=== PATIENT | female | born 1985 | race Caucasian/White ===

== ENCOUNTER 2016-10-23 00:53 | Emergency (ER) | payer OTHER ==
[~2016-10-23] VITALS: Ht 167.6 cm; Wt 67.4 kg
[~2016-10-23 00:53] MED LIST: CLC100X PO; OMEG10007 PO; PRENTAB26 PO; SUBUTEX SL
[2016-10-23 00:56] VITALS: TEMP 37; Ht 167.6 cm; Wt 67.4 kg
[2016-10-23] MEDS ORDERED: MoRPHine SULFATE 10 MG/ML CARP/VIAL IM STA (01:14)
[2016-10-23] MEDS ORDERED: OXYCODONE IR HOME PACK PO ONE (01:15)
[2016-10-23] MEDS ORDERED: BCPILLS PO (01:36)
[2016-10-23] MEDS ORDERED: BUPR8SUB19 PO (01:36)
[2016-10-23 01:53] VITALS: BP 128/67; PULSE 74; O2SAT 99
--- NOTE | 2016-10-23 04:26 | EMERGENCY ROOM VISIT NOTE ---
History First contact with patient: 01:13 Chief Complaint: NECK PAIN Stated Complaint: NECK/SHOULDER PAIN SHOOTING DOWN ARM,HEADACHE History of Present Illness The patient is a 30 year old female who presents to the Emergency Room with complaints of neck pain that radiates down her left arm described as aching, ranging in severity 6 out of 10. Movement makes it worse and nothing makes it better. She's had this issue before.. She sees Dr. Denson but not recently. Patient tried Motrin and Tylenol with no relief of symptoms. Patient denies trauma, fall, numbness, tingling, chest pain, dyspnea, fever, chills, neck stiffness, headache, leg numbness or dizziness. She is tolerated by mouth fluids and food. Patient denies difficulty grasping objects or moving her arms. Review of Systems See HPI for pertinent positives & negatives. A total of 10 systems reviewed and were otherwise negative. Past Medical/Surgical History Medical Problems: (1) Anxiety (2) Migraine (3) Post-dates (4) complicated by subutex maintenance, antepartum (5) Tonsillectomy Social History Smoking Status: Current Every Day Smoker Alcohol Use: occasionally Drug Use: none Marital Status: single Housing Status: lives with family Occupation Status: employed Current/Historical Medications Scheduled Control Pills ( Control Pills), 1 TAB PO DAILY Buprenorphine Hcl (Subutex), 8 MG PO DAILY Allergies Coded Allergies: Amoxicillin (Verified Allergy, Intermediate, RASH; pt tolerated Penicillin G before, 10/23/16) Penicillins (Verified Allergy, Mild, RASH, 10/23/16) Amitriptyline (Verified Allergy, Unknown, RASH, 10/23/16) Gabapentin (Verified Allergy, Unknown, RASH, 10/23/16) Nortriptyline (Verified Allergy, Unknown, RASH, 10/23/16) Tramadol (Verified Allergy, Unknown, HIVES, 10/23/16) Uncoded Allergies: AVERT (Allergy, Unknown, HIVES, 09/14/15) ??PER PT - THIS IS A MIGRAINE MEDICATION Physical Exam Vital Signs Date Time Temp Pulse Resp B/P Pulse Ox O2 Delivery O2 Flow Rate FiO2 10/23/16 01:53 74 18 128/67 99 10/23/16 00:56 37.0 75 18 120/66 98 Room Air Pain Rating (0-10): 4.0 Physical Exam VITALS: Vitals are noted on the nurse's note and reviewed by myself. Vital signs stable. GENERAL: Pleasant female, in no acute distress, nondiaphoretic, well-developed well-nourished. SKIN: The skin was without rashes, erythema, edema, or bruising. There is no tenting of the skin. Capillary reflex less than 2 seconds. HEAD: Normocephalic atraumatic. EARS: External auditory canals clear, tympanic membranes pearly sloan without erythema or effusion bilaterally. EYES: Pupils equal round and reactive to light and accommodation. Conjunctivae without injection, sclerae without icterus. Extraocular movements intact. NOSE: Patent, turbinates without inflammation or discharge. MOUTH: Mucous membranes moist. Pharynx without erythema or exudate. Uvula midline. Airway patent. Tongue does not deviate. NECK: Supple without nuchal rigidity. No lymphadenopathy. No thyromegaly. Cervical spine is nontender. No JVD. HEART: Regular rate and rhythm without murmurs gallops or rubs. LUNGS: Clear to auscultation bilaterally without wheezes, rales or rhonchi. No dullness to percussion. No retractions or accessory muscle use. ABDOMEN: Positive bowel sounds x 4. Normal tympanic percussion. Soft, nontender, without masses or organomegaly. Albert sign negative. No guarding or rebound tenderness. MUSCULOSKELETAL: No muscle atrophy, erythema, or edema noted. No thoracic or lumbar tenderness on exam. 5 out of 5 strength throughout. NEURO: Patient was alert and oriented to person place and time. Normal sensation to light and sharp touch. No focal neurological deficits. Medical Decision & Procedures Medications Administered Medications (Trade) Dose Ordered Sig/Rikki Route Start Time Stop Time Status Last Admin Dose Admin Oxycodone HCl (Roxicodone Immediate Rel 5MG Home Pack) 1 homepack UD ONCE PO 10/23/16 01:15 10/23/16 01:26 DC 10/23/16 01:50 1 HOMEPACK Morphine Sulfate (MoRPHine SULFATE INJ) 8 mg NOW STAT IM 10/23/16 01:14 10/23/16 01:26 DC 10/23/16 01:34 8 MG ED Course Prior records/ancillary studies reviewed. Triage Nursing notes reviewed. The patient's history was concerning for neck pain. Differential diagnosis: Etiologies such as musculoskeletal, disc herniation, fracture, metastatic disease, cord compression, discitis, infection, acute exacerbation of chronic neck pain, thoracic outlet syndrome as well as others were entertained. Physical findings: As above. No focal neurologic findings noted. ER treatment provided: Morphine, home pack OxyIR On reassessment the patient felt better. Diagnostics interpreted by me: Deferred This appears to be consistent with cervical radiculopathy. Patient was advised to follow back up with her orthopedic spine doctor. She is advised to do yoga and/or Pilates. She is advised to obtain all controlled substances from her family care doctor or pain management. Patient was neurovascularly and neurologically intact. No trauma. No deficits on exam. Patient was requesting for a short supply pain medicines as she does not have anything currently at home. I felt this is reasonable. She is not been in the ER quite sometime. She is advised to return to the ER immediately for severe pain, numbness, tingling, worsening signs or symptoms or as needed.. The patient's physical examination and detailed history did not reveal any red flags for neck pain such as those listed in the differential diagnosis. Therefore advanced diagnostics and consultations were felt to be unwarranted. By the evaluation outlined above emergent etiologies such as fracture, metastatic disease, infection, cord compression, as well as others were deemed relatively unlikely. The pt informed about the findings as listed above. All questions were answered and pleased with the treatment. Return instructions were outlined and the patient was discharged in stable condition. Outpatient prescription management: Oxy IR 5mg 1-2 po Q4 hrs prn Referral: The patient was referred back to spine and/or primary care physician for follow- up in 2 to 3 days for a recheck of the current condition. Medical Decision As above [place] Drug Monitoring Program Search Results: patient reviewed within database, see additional documentation (patient receives chronic narcotics) Impression Primary Impression: Cervical radiculopathy Departure Information Dispostion Home / Self-Care Condition GOOD Referrals Uri Perez M.D. Forms WORK / SCHOOL INSTRUCTIONS, HOME CARE DOCUMENTATION FORM, IMPORTANT VISIT INFORMATION Patient Instructions [facility], ED Cervical Radiculopathy Additional Instructions DO NOT drive, drink alcohol, operate machinery, or perform dangerous activities today. You were given medications in the ER that can affect your ability to safely function or operate a vehicle. Oxycodone (OxyIR) 5mg: Take 1-2 pills every four hours for breakthrough pain. Avoid alcohol, operating machinery or dangerous equipment, working on ladders or roofs, DRIVING, or situations where being under the influence may be dangerous. It is recommended to use an [id number] stool softener such as Colace, 100mg twice daily while taking this medication to avoid constipation. Ibuprofen(Motrin, Advil) may be used for fever or pain. Use 600mg every six hours as needed. Take with food. Avoid using more than 2400mg in a 24 hour period. Do not use 2400mg per day for more than three consecutive days without physician direction. Prolonged inappropriate use can lead to stomach upset or ulcers. This medication can be taken if you need to drive, work, or perform activities which may be dangerous when taking narcotic pain medication. (AND/OR) Acetaminophen(Tylenol) may be used for fever or pain. Use 1000mg every six hours as needed. Avoid using more than 3000mg in a 24 hour period. This medication can be taken if you need to drive, work, or perform activities which may be dangerous when taking narcotic pain medication. Rest and avoid heavy lifting until your symptoms resolve and then gradually return to full activity. A good rule of thumb is if it hurts your neck to perform a certain activity, then it should be avoided until you are healthy again. A heating pad, warm compresses, or a hot shower may help with tight muscles and can be done several times a day as needed. Continue current medications. Return to the ER immediately for any numbness, tingling, severe pain, loss of control of your bowels or bladder, inability to walk, or as needed. Follow up with your primary care physician/orthopedics spine within 3-5 days for a recheck of your current condition.
== END 2016-10-23 01:57 | disposition home or self-care (01) ==
LOC: C.EDB 00:54 → C.EDA 01:57
DX: M54.12 Radiculopathy, cervical region (principal); F41.9 Anxiety disorder, unspecified; Z79.3 Long term (current) use of hormonal contraceptives; Z79.899 Other long term (current) drug therapy; Z88.0 Allergy status to penicillin; Z88.1 Allergy status to other antibiotic agents; Z88.6 Allergy status to analgesic agent; Z88.8 Allergy status to other drugs, medicaments and biological substances; F17.200 Nicotine dependence, unspecified, uncomplicated

== ENCOUNTER 2024-09-03 08:04 | Observation (INO) ==
--- OUTSIDE RECORDS SUMMARY | 2024-09-03 08:09 | External Medical Summary | Summary of Care ---
Author Name Unknown Organization [facility] Address [address] [place] [address] Phone [phone] Care Team Providers Care Superannuation Clerk Name Role Phone Fawn Whitehead MD Primary Care Provide r Reason for Visit * Auth/Cert Specialty Diagnoses / Procedures Referred By Juan F de dios Referred To Contact Diagnoses Nausea Heartburn Dysphagia, unspecified type Nausea [R11.0] Heartburn [R12] Dysphagia, unspecified type [R13.10] Procedures EGD, FLEXIBLE, DIAGNOSTIC ESOPHAGOGASTRODUODENOSCOPY (EGD), FLEXIBLE, TRANSORAL, DIAGNOSTIC Referral ID Status Reason Start Date Expiration Date Visits Re quested Visits Authorized [id number] Encounter Details Date Type Department Care Team (Latest Contact Info) Description 08/21/2024 8:04 AM EST - 08/21/2024 10:44 AM [facility] Hospital Encounter ENDO [facility], Endoscopy Room [facility] [address] [place] [phone] Nikunj Loo MD [address] [place] [phone] Upper GI Endoscopy Discharge Disposition: Home - Self Care Allergies Active Allergy Reactions Criticality Noted Date Comments Amitriptyline Rash High 09/28/2009 Rash Amoxicillin Rash High 08/21/2002 rash Gabapentin Hives High 06/02/2009 Hives Nortriptyline Hcl Rash High 09/28/2009 Rash Tramadol Rash High 08/06/2014 hives documented as of this encounter (statuses as of 08/21/2024) Medications Buprenorphine HCl 8 MG Sublingual Tablet Sublingual Take 1 Tablet by mouth in the morning. Active Probiotic Acidophilus BioBeads Oral Capsule Take by mouth 1 Capsule three times a day with meals . Active Ibuprofen 600 MG Oral Tablet (Motrin) Take by mouth 1 Tablet every 6 hours as needed (pain). With food. 30 Tablet 2 Active Multi Vitamin Oral Tablet Take by mouth. Act jose maria Ajovy 225 MG/1.5ML Subcutaneous Solution Auto-injector (Fremanezumab-vf rm) Inject 1 pen under the skin Every Month. 1.5 mL 3 4 Active Additional Information Patient not taking.Reported on 08/21/2024 Riboflavin 400 MG Oral Tablet Take 1 Tablet by mouth in the morning. 30 Tablet 2 4 Active Additional Information Patient not taking.Reported on 08/21/2024 Magnesium Oxide 400 MG Oral Capsule Take 1 Capsule by mouth in the morning. 30 Capsule 2 4 Active Aimovig 140 MG/ML Subcutaneous Solution Auto-injector (Erenumab-aooe) Inject 140 mg under the skin Every Month. 1 mL 3 08/14/2024 9:40 AM EST 4 Active buPROPion HCl ER (XL) 150 MG Oral Tablet Extended Release 24 Hour (Wellbutrin XL)Indications:W eight gain,Generalized anxiety disorder Take 1 Tablet by mouth in the morning. 90 Tablet 1 4 Active Additional Information Patient not taking.Reported on 08/15/2024 Baclofen 20 MG Oral TabletIndication s:Neck pain Take 1 Tablet by mouth in the morning and 1 Tablet before bedtime. As needed for muscle pain. 30 Tablet 4 Active Lidocaine 5 % External CreamIndications :Ingrown toenail Apply pea size to the affected area daily as needed for pain 30 g 4 Active documented as of this encounter (statuses as of 08/21/2024) Active Problems Patient Care Coordination No te Formatting of this note is d ifferent from the original. Problem Action Taken Date entered Entered by Date resolved Problem Noted Date Diagnosed Date Gastro-esophageal reflux disease without esophag itis 03/27/2023 Current moderate episode of major depressive disorder without prior episode 03/27/2023 Nonrheumatic mitral valve regurgitation 09/22/19 Overview (09/22/2022): 2022 History of opioid abuse 11/11/2021 Overview (11/11/2021): sober since 2014 Depression 08/06/2014 Migraine without aura 08/06/2014 Small L occipital venous angioma 08/13/2009 Tobacco use disorder Generalized anxiety disorder documented as of this encounter (statuses as of 08/21/2024) Resolved Problems Problem Noted Date Diagnosed Date Resolved Date Equinus contracture of left ankle 03/27/2023 10/04/2023 GBS (group B Streptococcus c arrier), +RV culture, currently 08/19/2015 09/24/2015 Overview (08/25/2015): Pt allergic to amoxicillin (rash); vanco and penicillin susceptible Supervision of high-risk 05/19/2015 09/24/2015 Overview (09/13/2015): subutex use in - pt desires this info not be shared with FOB or any family members Transfer of care at [id number] records obtained 01/14/15: antibody screen negative, O-, Hgb/Hct: 12.2/36.5, RPR nonreactive, HbsAg nonreactive, HIV negative, C&G negative, rubella immune 03/30/15:quad screen negative 02/09/15: negative 04/19/15: normal anatomy sono Desires PP BTL Problem Action Taken Date entered Entered by Date resolved Pt here today due to pain issues Reviewed comfort measures with pt 08/16/2015 Amy Alexander RN 08/16/15 Problem Action Taken Date entered Entered by Date resolved of significant other Emotional support offered due to unexpected loss of significant other. Patient notes her mother plans on being her labor sales coach 08/25/2015 Shanice Sanchez RN 08/25/15 Problem Action Taken Date entered Entered by Date resolved Signs of labor Rviewed signs of labor Aware how to reach community education coordinator provider 08/31/2015 Shanice Sanchez RN 08/31/15 Problem Action Taken Date entered Entered by Date resolved Current needs or questions Patient denies having any current needs or questions 09/06/2015 Shanice Sanchez RN 09/06/15 Patient declines flu vaccine. 06/30/2015 Ashlee Awad RN Patient declines Tdap vaccine 07/14/15 Shanice Sanchez RN Problem Action Taken Date entered Entered by Date resolved Current needs or questions Patient denies having any current needs or questions 09/13/2015 Amy Alexander RN 09/13/15 Rh negative status during 05/19/2015 09/24/2015 Overview (06/15/2015): Rhogam candidate Rhogam given 06/15/2015 Bronwyn Harmon RN Tobacco smoking complicating 05/19/2015 09/24/2015 Overview (05/19/2015): Smoking 1ppd @ [facility] 24w1d Adjustment disorder with depressed mood 08/06/2014 08/06/2014 Adjustment disorder with depressed mood 10/18/2007 08/06/2014 History of tobacco use 12/01 Papanicolaou smear of cervix with atypical squamous cells of undetermined significance (ASC-US) 08/06/2014 Other specified anemias 12/2013 Anxiety state 08/08/2011 Reflux esophagitis 4 Migraine 08/06/2014 Vaginitis 08/06/2014 documented as of this encounter (statuses as of 08/21/2024) Immunizations Name Administration Dates Next Due HPV Vaccine, 4-Valent 08/16/2009,05/17/2009,04/2009 PPD 10/04/2023, 2,03/22/2011,03/07,11/08/2006 Pneumococcal Polysaccharide PPV23 (Pneumovax) 08/08/2011(Deferred: Patient Refused) Seasonal Influenza Vac., MDV , IM, 0.5 mL (Fluzone) 08/08/2011(Deferred: Patient Refused) TDAP (age 10 and older)(Boostrix) 03/20/2018 TDAP, Age 7 and older, IM (Adacel) 09/03/2005 documented as of this encounter Social History Tobacco Use Types Packs/Day Years Used Date Smoking Tobacco: Former Cigarettes 1 15 Smokeless Tobacco: Never Comments:17 Alcohol Use Standard Drinks/Week Comments Yes 0 (1 standard drink = 0.6 oz pure alcohol) occassional- less than 1 x per week PHQ-2 Answer Date Recorded PHQ-2 Score 0 08/09/2020 Hunger Vital Sign Answer Date Recorded Within the past 12 months, y ou worried that your food would run out before you got the money to buy more. Never true 07/09/20 23 Within the past 12 months, t he food you bought just didn't last and you didn't have money to get more. Never true 07/09/2023 Childcare Answer Date Recorded Do you feel overwhelmed with taking care of a child, family member or friend? No 07/09/2023 Does your family need help f inding childcare? (Household - for ages 0-17 years) Not on file 07/09/2023 Clothing Answer Date Recorded Have you been unable to get clothing when it was really needed? Yes 07/09/2023 Is your family able to get c lothes or diapers when needed? (Household - for ages 0-17 years) Not on file 07/09/2023 Personal Safety Answer Date Recorded Do you feel unsafe or have concerns for your saf ety? No 07/09/2023 Do you have concerns for you r family's safety? (Household - for ages 0-17 years) Not on file 07/09/2023 Utilities Answer Date Recorded Do you have trouble paying y our heating, water, or electric bill? No 07/09/2023 Is your family able to pay t he heat, water, or electric bill? (Household - for ages 0-17 years) Not on file 07/09/2023 Does your family have access to good internet? (Household - for ages 0-17 years) Not on file 07/09/2023 Employment Status Answer Date Recorded Are you unemployed or without regular income? No 07/09/2023 Does the household have a re gular source of income? (Household - for ages 0-17 years) Not on file 07/09/2023 Social Connections Answer Date Recorded How often do you feel lonely or isolated from those around you? Sometimes 07/09/2023 Financial Resource Strain Answer Date R ecorded Do you have any trouble payi ng for your medications, or do you think you might in the future? No 07/09/2023 Does your family have troubl e paying for medicine? (Household - for ages 0-17 years) Not on file 07/09/2023 Transportation Needs Answer Date Record ed READ ONLY Do you have troubl e getting a ride to medical visits or work? Never True 07/09/2023 Does your family have a hard time getting a ride to doctors visits? (Household - for ages 0-17 years) Not on file 07/09/2023 Has lack of transportation k ept you from medical appointments, meetings, work, or from getting things needed for daily living? Check all that apply. (Adult - for ages 18 years and over) Not on file 07/09/2023 Do you (or your family) have trouble finding or paying for a ride (transportation)? (Household - for ages 0-17 years) Not on file 07/09/2023 Housing Stability Answer Date Recorded Do you currently live in a s helter or have no steady place to sleep at night? No 07/09/2023 READ ONLY Do you think you a re at risk of becoming homeless? No 07/09/2023 Does your family worry about paying for your home or becoming homeless? (Household - for ages 0-17 years) Not on file 1 09/08/2022 Are you homeless or worried that you might be in the future? (Adult - for ages 18 years and over) Not on file Are you (or your family) schuyler eless or worried that you might be in the future? (Household - for ages 0-17 years) Not on file Food Insecurity Answer Date Recorded Do you need food for this week? No 07/09/2023 Are you able to get enough f ood for your family? (Household - for ages 0-17 years) Not on file 07/09/2023 Does your family need food t his week? (Household - for ages 0-17 years) Not on file 07/09/2023 Do you always have enough fo od for your family? 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 Not on file Not on file Not on file documented as of this encounter Last Filed Vital Signs Vital Sign Reading Time Taken Comments Blood Pressure 115/83 08/21/2024 10:25 AM EST Pulse 74 08/21/2024 10:25 AM EST Temperature 36.1 C (97 F) 08/21/2024 10:25 AM EST Respiratory Rate 16 08/21/2024 10:25 AM EST Oxygen Saturation 100% 08/21/2024 10:14 AM EST Inhaled Oxygen Concentration - - Weight 91.6 kg (202 lb) 08/21/2024 8:39 AM EST Height 165.1 cm (5' 5") 08/21/2024 8:39 AM EST Body Mass Index 33.61 08/21/2024 8:39 AM EST documented in this encounter H&P Notes * Nikunj Loo MD - 08/21/2024 9:33 AM EST Endoscopy Pre-Procedure Assessment Name: Clarissa Quintero Date: 08/21/2024 Time: 9:33 AM Procedure(s): Upper GI Endoscopy; with Indication(s) of dysphagia or odynophagia Endoscopy Pre-Procedure Assessment: Prior to the procedure, the patient is identified. The patient's history, medications and allergieshave been reviewed. The patient is competent. The risks and benefits of the proposed procedure and the planned sedation have been discussed with the patient. All questions have been answered and informed consent for the procedure has been obtained. Prior to Admission medications Medication Sig Last Dose Discont. Lidocaine 5 % External Cream Apply pea size to the affected area daily as needed for pain Past Week Baclofen 20 MG Oral Tablet Take 1 Tablet by mouth in the morning and 1 Tablet before bedtime. As needed for muscle pain. Past Week Aimovig 140 MG/ML Subcutaneous Solution Auto-injector (Erenumab-aooe) Inject 140 mg under the skin Every Month. 08/18/2024 Magnesium Oxide 400 MG Oral Capsule Take 1 Capsule by mouth in the morning. Past Week Multi Vitamin Oral Tablet Take by mouth. 08/20/2024 Ibuprofen 600 MG Oral Tablet (Motrin) Take by mouth 1 Tablet every 6 hours as needed (pain). With food. Past Week Probiotic Acidophilus BioBeads Oral Capsule Take by mouth 1 Capsule three times a day with meals . 08/20/2024 Buprenorphine HCl 8 MG Sublingual Tablet Sublingual Take 1 Tablet by mouth in the morning. 08/21/2024 at 7:15 AM Fluconazole 150 MG Oral Tablet (Diflucan) Take 1 Tablet by mouth once for 1 dose. Fluconazole 150 MG Oral Tablet (Diflucan) Take 1 Tablet by mouth once for 1 dose. Doxycycline Hyclate 100 MG Oral Capsule Take 1 Capsule by mouth in the morning and 1 Capsule beforebedtime. Do all this for 7 days. Take for 7 days. predniSONE 20 MG Oral Tablet (Deltasone) Take 2 Tablets by mouth in the morning for 5 days. buPROPion HCl ER (XL) 150 MG Oral Tablet Extended Release 24 Hour (Wellbutrin XL) Take 1 Tablet by mouth in the morning. Patient not taking: Reported on 08/15/2024 Not Taking Ajovy 225 MG/1.5ML Subcutaneous Solution Auto-injector (Fremanezumab-vfrm) Inject 1 pen under the skin Every Month. Patient not taking: Reported on 08/21/2024 Not Taking Riboflavin 400 MG Oral Tablet Take 1 Tablet by mouth in the morning. Patient not taking: Reported on 08/21/2024 Not Taking Review of patient's allergies indicates: Allergen Reactions Amitriptyline Rash Rash Amoxicillin Rash rash Neurontin [Gabapentin] Hives Hives Nortriptyline Hcl Rash Rash Tramadol Rash hives BP 121/57 | Pulse 78 | Temp 36.8 C (98.2 F) (Tympanic) | Resp 14 | Ht 1.651 m (5' 5") | Wt 91.6kg (202 lb) | SpO2 99% | BMI 33.61 kg/m | BSA 2.05 m Physical Exam: Mental Status Examination: alert and oriented. Airway Examination: normal oropharyngeal airway and neck mobility. Respiratory Examination: clear to auscultation. CV Examination: normal. ASA Grade: II - A patient with mild systemic disease. Abdomen: negative This patient has undergone a preprocedural evaluation. A determination has been made to proceed with the planned procedure under [facility] procedural guidelines and the [facility] Non-Emergent, Elective Medical Services and Treatment Recommendations (published on 12-09-19). The community and hospital prevalence of COVID-19 has been discussed as well as this patient's specific risks associated with SARS-CoV-19 infection. Based upon the clinical acuity and patient-specific care considerations, this procedure is deemed a Tier II - Intermediate acuity treatment or service with either progression or the threat of progressive disease related to the delay in treatment. Not providing the service has the potential for increasing morbidity or mortality. After reviewing the risks and benefits, the patient is deemed in satisfactory condition to undergo the procedure. The anesthesia plan is to use general anesthesia. Nikunj Loo MD 08/21/2024 documented in this encounter Procedure Notes * Fawn Whitehead MD - 08/21/2024 9:47 AM ESTAssociated Order(s): UPPER GI ENDOSCOPY [facility] Patient Name: Clarissa Quintero Procedure Date: 08/21/2024 9:47 AM Date of : 1985 Admit Type: Outpatient Note Status: Finalized Date of : 1985 Admit Type: Outpatient Age: 38 Room: [facility] 3 Gender: Female Note Status: Finalized Procedure: Upper GI endoscopy Indications: Dysphagia Providers: Nikunj Loo MD (Doctor) Referring MD: aFwn Whitehead (Referring MD) Medicines: See the Anesthesia note for documentation of the administered medications Complications: No immediate complications. Procedure: Pre-Anesthesia Assessment: - ASA Grade Assessment: III - A patient with severe systemic disease. - Prior to the procedure, a History and Physical was performed, and patient medication allergies have been reviewed. The patient's tolerance of previous anesthesia has been reviewed. - Respiratory Examination: clear to auscultation. - CV Examination: normal. - The risks and benefits of the procedure and the sedation options and risks were discussed with the patient. All questions were answered and informed consent was obtained. - Patient identification and proposed procedure were verified prior to the procedure by the physician, the nurse and the motorcycle maker. The procedure was verified in the pre-procedure area in the procedure room. - The medication list for this patient has been reviewed prior to the procedure and has been determined that the patient may proceed with the planned study. Any medication changes made as a result of the findings of this procedure have been discussed with the patient and/or admitting representative at the time of discharge from the facility. After obtaining informed consent, the endoscope was passed under direct vision. All instruments were visually inspected immediately before and after removal from the patient to ensure they are fully intact. Throughout the procedure, the patient's blood pressure, pulse, and oxygen saturations were monitored continuously. The colonoscopy was performed without difficulty. The patient tolerated the procedure well. The [id number]-[id number] Endoscope ([id number]) was introduced through the mouth, and advanced to the second part of duodenum. Findings & Specimens: Faint furrows in proximal esophagus. The GE junction was at 40 cm. Hill 1. Biopsies taken from throughout the esophagus.The gastroesophageal flap valve was visualized endoscopically and classified as Hill Grade I (prominent fold, tight to endoscope). The entire examined stomach was normal. Biopsies were taken with a cold forceps for histology. The examined duodenum was normal. Biopsies were taken with a cold forceps for histology. A guidewire was placed and the scope was withdrawn. Dilation was performed at the gastroesophageal junction and no disruption with a Savary dilator with no resistance at 18 mm. Impression: - Gastroesophageal flap valve classified as Hill Grade I (prominent fold, tight to endoscope). - Normal stomach. Biopsied. - Normal examined duodenum. Biopsied. - Dilation performed at the gastroesophageal junction. It is possible that pt has opioid induced esophageal dysmotility. Recommendation: - Discharge patient to home. Follow up biopsy results. Nikunj Loo MD 08/21/2024 10:25:09 AM This report has been signed electronically. documented in this encounter Nursing Notes * Reema Torres RN - 08/21/2024 10:43 AM EST Patient is alert, pain free, passing flatus and tolerating po fluids prior to discharge. Patient has been visited by Dr. Loo. Patient has received and demonstrates understanding of discharge instructions. Patient ambulated to private auto accompanied by endo staff. * Reema Torres RN - 08/21/2024 10:25 AM EST Patient transferred to post endo s/p egd . Patient awake Respirations are even and unlabored on room air. NSR in the 80s on the monitor. Abdomen soft and non distended. Vital signs stable. IA * Bao Cristina RN - 08/21/2024 10:11 AM EST See anesthesia record for medication administered during procedure. Bao Cristina RN Specimen(s) and location(s) verified with physician post procedure 10:11 AM Bao Cristina RN Pt nicolas EGD w/ bx and dilation well. Abd soft post proc. To recovery lying on L side w/ HOB elevated. Pre cleaning of scope at the bedside started by respiratory therapy technician. * Katlyn Navarro RN - 08/21/2024 8:43 AM EST Pt arrived and prepped for GI procedure. Given opportunity to ask questions. No concerns or complaints at this time. Pt ready for procedure and call light in reach. The following pt discharge instructions reviewed with pt prior to prodedure: No driving today. No alcohol today. No signing of legal documents. Rest as much as possible today and can return to normal activities tomorrow. No operating any heavy equipment today. Diet as tolerated. Pt verbalized understanding. documented in this encounter Plan of Treatment Upcoming Encounters Date Type Department Care Team (Late st Contact Info) Description 09/10/2024 8:00 AM EST Office Visit [facility] [address] [place] [phone] [facility]az [facility] [place] [address] 09/10/2024 10:00 AM EST Nutrition Services [facility], [facility] [address] [facility] [place] [phone] Millie Mary RDN [address] [facility] [address] 11/20/2024 10:00 AM EDT Office Visit Neurology [facility] [address] [place] [address] Sarah Velásquez MD [address] [facility] [id number] Pending Results Name Type Priority Associated Diagnoses Date /Time SURGICAL PATHOLOGY Pathology Routine Nausea Heartburn Dysphagia, unspecified type 08/21/2024 10:12 AM EST Scheduled Orders Name Type Priority Associated Diagnoses Orde r Schedule URINE SCREEN, POINT OF CARE (ENTER/EDIT) Point of Care Testing STAT Perform Now for 1 Occurrences starting 08/21/2024 until 08/21/2024 SURGICAL PATHOLOGY Pathology Routine Nausea Heartburn Dysphagia, unspecified type Release Upon Ordering for 1 Occurrences starting 08/21/2024 Scheduled Procedures Name Priority Associated Diagnoses Date/Ti fl ESOPHAGOGASTRODUODENOSCOPY ( EGD), FLEXIBLE, TRANSORAL, DIAGNOSTIC Nausea Heartburn Dysphagia, unspecified type 08/21/2024 9:50 AM EST Health Maintenance Due Date Last Done Comments Depression Monitoring 08/09/2021 08/09/2020 COVID-19 Vaccine ( season) 2024 Influenza Vaccine (FLU shot) (#1) 2024 Pap Smear 08/18/2025 08/18/2022, 03/03, 11/29/2016, Additional history exists Diabetes Screening 07/04/2027 07/04/2024, 1 09/03/2023, 10/05/2023, Additional history exists Cervical Cancer Screening 08/18/2027 HPV/Co-Test 08/18/2027 08/18/2022 DTap/Tdap Vaccines (8 - Td or Tdap) 03/20/2028 03/20/2018, 09/03/2005, 05/03/1998, Additional history exists HPV (Gardasil) Vaccine Completed 9, 05/17/2009, 02/08/2009 MENINGOCOCCAL (MENACTRA/MENVEO) Aged Out No longer eligible based on patient's age to complete this topic Pneumococcal Vaccine: Pediatrics (0 to 5 Years) and At-Risk Patients (6 to 64 Years) Aged Out No longer eligible based on patient's age to complete this topic documented as of this encounter Medical Devices Not on filedocumented as of this encounter Procedures Procedure Name Priority Date/Time Associated Diagnosis Comments UPPER GI ENDOSCOPY 08/21/2024 9: 47 AM EST documented in this encounter Results * UPPER GI ENDOSCOPY (08/21/2024 9:47 AM EST) 08/21/2024 9:47 AM EST Narrative Procedure Note Fawn Whitehead MD - 08/21/2024 9:47 AM EST [facility] Patient Name: Clarissa Quintero Procedure Date: 08/21/2024 9:47 AM Date of : 1985 Admit Type: Outpatient Note Status:Finalized Date of : 1985 Admit Type: Outpatient Age: 38 Room: [facility] 3 Gender: Female Note Status: Finalized Procedure: Upper GI endoscopy Indications: Dysphagia Providers: Nikunj Loo MD (Doctor) Referring MD: Fawn Whitehead (Referring MD) Medicines: See the Anesthesia note for documentation of theadministered medications Complications: No immediate complications. Procedure: Pre-Anesthesia Assessment: - ASA Grade Assessment: III - A patient with severesystemic disease. - Prior to the procedure, a History and Physicalwas performed, and patient medication allergies have been reviewed. Thepatient's tolerance of previous anesthesia has been reviewed. - Respiratory Examination: clear to auscultation. - CV Examination: normal. - The risks and benefits of the procedure and thesedation options and risks were discussed with the patient. All questions wereanswered and informed consent was obtained. - Patient identification and proposed procedurewere verified prior to the procedure by the physician, the nurse and the motorcycle maker.The procedure was verified in the pre-procedure area in the procedure room. - The medication list for this patient has beenreviewed prior to the procedure and has been determined that the patient may proceedwith the planned study. Any medication changes made as a result of the findingsof this procedure have been discussed with the patient and/or admitting representative atthe time of discharge from the facility. After obtaining informed consent, the endoscope waspassed under direct vision. All instruments were visually inspected immediatelybefore and after removal from the patient to ensure they are fully intact. Throughout the procedure, the patient's bloodpressure, pulse, and oxygen saturations were monitored continuously. The colonoscopy wasperformed without difficulty. The patient tolerated the procedure well. The [id number] ([id number]) was introduced through the mouth, and advanced to thesecond part of duodenum. Findings & Specimens: Faint furrows in proximal esophagus. The GE junction was at 40 cm.Hill 1. Biopsies taken from throughout the esophagus.The gastroesophageal flap valve wasvisualized endoscopically and classified as Hill Grade I (prominent fold, tight to endoscope). The entire examined stomach was normal. Biopsies were taken with acold forceps for histology. The examined duodenum was normal. Biopsies were taken with a coldforceps for histology. A guidewire was placed and the scope was withdrawn. Dilation wasperformed at the gastroesophageal junction and no disruption with a Savary dilator with no resistanceat 18 mm. Impression: - Gastroesophageal flap valve classified as HillGrade I (prominent fold, tight to endoscope). - Normal stomach. Biopsied. - Normal examined duodenum. Biopsied. - Dilation performed at the gastroesophagealjunction. 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 Recommendation: - Discharge patient to home. Follow up biopsyresults. Nikunj Loo MD 08/21/2024 10:25:09 AM This report has been signed electronically. Fawn Whitehead MD GASTRO UPPER Final Result documented in this encounter Visit Diagnoses Diagnosis Nausea Nausea alone Heartburn Dysphagia, unspecified type documented in this encounter Administered Medications Inactive Administered Medications - up to 3 most recent administrations Medication Order MAR Action Action Date Dose Rate Site Acetaminophen (Tylenol) tab 650 mg 650 mg, Oral, PRN Pain, Mild, Starting on Aurea 08/21/24 at 1020, Until Aurea 08/21/24 at 1444, For 1 dose, Maximum of 4 grams (4000 mg) per day., Post-op Isolyte-S pH 7.4 infusion Intravenous, at 75 mL/hr, for Outpatient patient Plasma-LYTE 148, isolyte-S, and isolyte-S pH 7.4 are considered equivalent - including for MAR barcode scanning., CONTINUOUS, Starting on Aurea 08/21/24 at 0900, Until Aurea 08/21/24 at 1444, Pre-Op Continue from Pre-Op 08/21/2024 9:49 AM EST 75 mL/hr New Bag 08/21/2024 8:49 AM EST 75 mL/hr 75 mL/hr documented in this encounter Active and Recently Administered Medications Times are shown in EST. Continuous Medication Order 08/19/2024 08/20/2024 08/21/2024 Isolyte-S pH 7.4 infusion Intravenous, at 75 mL/hr, for Outpatient patient Plasma-LYTE 148, isolyte-S, and isolyte-S pH 7.4 are considered equivalent - including for MAR barcode scanning., CONTINUOUS, Starting on Aurea 08/21/24 at 0900, Until Aurea 08/21/24 at 1444, Pre-Op 0849 (New Bag - Prov ider: Katlyn Navarro RN)0949 (Continue from Pre-Op - Provider: Bolivar Moore CRNA)1012 (Anes Intra-Op Fluid - Provider: Bolivar Moore CRNA) PRN Medication Order 08/19/2024 08/20/2024 08/21/2024 Acetaminophen (Tylenol) tab 650 mg 650 mg, Oral, PRN Pain, Mild, Starting on Aurea 08/21/24 at 1020, Until Aurea 08/21/24 at 1444, For 1 dose, Maximum of 4 grams (4000 mg) per day., Post-op documented in this encounter Care Teams Superannuation Clerk Relationship Specialty Start Date End Date Fawn Whitehead MD [address] [place] [address] [place] [id number] PCP - General Family Medicine 11/12/19 documented as of this encounter
--- OUTSIDE RECORDS SUMMARY | 2024-09-03 08:09 | External Medical Summary | Summary of Care ---
Author Name Unknown Organization [facility] Address [address] [place] [address] Phone [phone] Care Team Providers Care Otologist Name Role Phone Fawn Whitehead MD Primary Care Provide r Reason for Visit * Reason Onset Date Comments Precert Approved 05/27/2024 AIMOVIG Encounter Details Date Type Department Care Team (Late st Contact Info) Description 05/27/2024 Telephone Neurology [facility] [address] [place] [address] Sarah Vanegas PA-C [address] [place] [address] Precert Approved ( AIMOVIG) Allergies Active Allergy Reactions Criticality Noted Date Comments Amitriptyline Rash High 09/28/2009 Rash Amoxicillin Rash High 08/21/2002 rash Gabapentin Hives High 06/02/2009 Hives Nortriptyline Hcl Rash High 09/28/2009 Rash Tramadol Rash High 08/06/2014 hives documented as of this encounter (statuses as of 08/26/2024) Medications Buprenorphine HCl 8 MG Sublingual Tablet Sublingual Take 1 Tablet by mouth in the morning. Active Probiotic Acidophilus BioBeads Oral Capsule Take by mouth 1 Capsule three times a day with meals . Active Ibuprofen 600 MG Oral Tablet (Motrin) Take by mouth 1 Tablet every 6 hours as needed (pain). With food. 30 Tablet 03/16/20 Active Multi Vitamin Oral Tablet Take by mouth. Act jose maira Ajovy 225 MG/1.5ML Subcutaneous Solution Auto-injector (Fremanezumab-v frm) Inject 1 pen under the skin Every Month. 1.5 mL 3 05/22/20 24 Active Additional Information Patient not taking.Reported on 08/21/2024 Riboflavin 400 MG Oral Tablet Take 1 Tablet by mouth in the morning. 30 Tablet 2 05/22/20 Active Additional Information Patient not taking.Reported on 08/21/2024 Magnesium Oxide 400 MG Oral Capsule Take 1 Capsule by mouth in the morning. 30 Capsule 2 05/22/20 Active Aimovig 140 MG/ML Subcutaneous Solution Auto-injector (Erenumab-aooe) Inject 140 mg under the skin Every Month. 1 mL 3 4 9:40 AM EST 05/26/20 Active predniSONE 10 MG Oral Tablet (Deltasone) 6 tab x 3 days, 4 tab x 3 days, 3 tab x 3 days, 2 tab x 3 days 1 tab x 3 days 48 Tablet 05/22/20 024 Discontinued documented as of this encounter (statuses as of 08/26/2024) Active Problems Patient Care Coordination No te [...] as of this encounter (statuses as of 08/26/2024) Resolved Problems Problem Noted Date Diagnosed Date [...] any family members Transfer of care at [id number] records obtained 01/14/15: antibody screen negative, O-, [...] her mother plans on being her labor head tennis coach 08/25/2015 Shanice Sanchez RN 08/25/15 Problem Action Taken Date entered Entered by Date resolved Signs of labor Rviewed signs of labor Aware how to reach senior control systems engineer provider 08/31/2015 Shanice Sanchez RN 08/31/15 Problem [...] as of this encounter (statuses as of 08/26/2024) Immunizations Name Administration Dates Next Due HPV [...] 07/09/2023 Does the household have a re lar source of income? 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 * Telephone Encounter - Joanna Kurtz MED ASSIST - 05/28/2024 11:02 AM EDT Do not see medical record documentation of therapeutic failure of at least one preventive medication from one of the following classes: 1 . Beta-blockers (for example: metoprolol, propranolol, atenolol), 2. Anticonvulsants (for example: topiramate, valproic acid, divalproex) OR Do not see medical record documentation of contraindication or intolerance that prohibits a trial of at least one preventive medication from one of the following classes: 1. Beta-blockers (for example: metoprolol, propranolol, atenolol), 2. Anticonvulsants (for example: topiramate, valproic acid, di valproex) * Telephone Encounter - Alexandria Caro CPhT - 05/27/2024 9:39 AM EDT New or re-auth: New Patient Clarissa Quintero needs a prior authorization for a medication through their [facility] family insurance. Medication: Aimovig 140mg Formulation: soaj Dosage: Inject 140 mg under the skin Every Month. ID: [id number] BIN:[id number] PCN:[id number] Target ship date is na. Thank you very much, Alexandria Caro CPhT Fundraising Officer [facility] 05/27/2024,9:40 AM documented in this encounter Plan of Treatment Upcoming Encounters Date Type Department Care Team (Late st Contact Info) Description 09/10/2024 8:00 AM EST Office Visit Sleep Disorders Ctr [facility] [address] [place] [phone] Yaz Louis, [address] [place] [address] 09/10/2024 10:00 AM EST Nutrition Services Nutrition, [facility] [address] [place] [address] Millie Mary, RDN [address] [place] [address] 11/20/2024 10:00 AM EDT Office Visit Neurology [facility] [place] [address] [facility] [place] [address] Sarah Velásquez MD [address] [facility] [place] [address] Health Maintenance Due Date Last Done Comments [...] Not on filedocumented as of this encounter Care Teams Otologist Relationship Specialty Start Date End Date Fawn Whitehead MD [address] [place] [address] [place] [phone] PCP - General Family Medicine 11/12/19 documented as of this encounter
--- OUTSIDE RECORDS SUMMARY | 2024-09-03 08:10 | External Medical Summary | Summary of Care ---
Author Name Unknown Organization [facility] Address [address] [place] [address] Phone [phone] Care Team Providers Care Consumer Banker Name Role Phone Fawn Whitehead MD Primary Care Provide r Reason for Visit * Reason Onset Date Comments Medication Pre-auth 08/11/2024 Encounter Details Date Type Department Care Team (Late st Contact Info) Description 08/11/2024 Telephone Family [address] [phone] Fawn Whitehead MD [address] [place] [address] [place] [id number] Medication Pre-auth Allergies Active Allergy Reactions Criticality Noted Date Comments Amitriptyline Rash High 09/28/2009 Rash Amoxicillin Rash High 08/21/2002 rash Gabapentin Hives High 06/02/2009 Hives Nortriptyline Hcl Rash High 09/28/2009 Rash Tramadol Rash High 08/06/2014 hives documented as of this encounter (statuses as of 08/12/2024) Medications Buprenorphine HCl 8 MG Sublingual Tablet Sublingual Take 1 Tablet by mouth in the morning. Active Probiotic Acidophilus BioBeads Oral Capsule Take by mouth 1 Capsule three times a day with meals . Active Ibuprofen 600 MG Oral Tablet (Motrin) Take by mouth 1 Tablet every 6 hours as needed (pain). With food. 30 Tablet 03/16/20 Active Additional Information Patient not taking.Reported on 07/16/2024 Multi Vitamin Oral Tablet Take by mouth. Act jose maria Ajovy 225 MG/1.5ML Subcutaneous Solution Auto-injector (Fremanezumab-vf rm) Inject 1 pen under the skin Every Month. 1.5 mL 3 05/22/20 24 Active Additional Information Patient not taking.Reported on 07/16/2024 Riboflavin 400 MG Oral Tablet Take 1 Tablet by mouth in the morning. 30 Tablet 2 05/22/20 24 Active Magnesium Oxide 400 MG Oral Capsule Take 1 Capsule by mouth in the morning. 30 Capsule 2 05/22/20 24 Active Aimovig 140 MG/ML Subcutaneous Solution Auto-injector (Erenumab-aooe) Inject 140 mg under the skin Every Month. 1 mL 3 07/22/2024 12:19 PM EST 05/26/20 24 Active buPROPion HCl ER (XL) 150 MG Oral Tablet Extended Release 24 Hour (Wellbutrin XL)Indications:W eight gain,Generalized anxiety disorder Take 1 Tablet by mouth in the morning. 90 Tablet 1 07/04/20 24 Active Baclofen 20 MG Oral TabletIndication s:Neck pain Take 1 Tablet by mouth in the morning and 1 Tablet before bedtime. As needed for muscle pain. 30 Tablet 07/16/20 24 Active Lidocaine 5 % External CreamIndications :Ingrown toenail Apply pea size to the affected area daily as needed for pain 30 g 08/12/20 24 Active Lidocaine 10 % External CreamIndications :Ingrown toenail Apply pea size to the affected toe twice a day as needed 30 g 08/11/20 24 024 Discontin ued(Medic ation List Clean Up) documented as of this encounter (statuses as of 08/12/2024) Active Problems Patient Care Coordination No te Formatting of this note is d ifferent from the original. Problem Action Taken Date entered Entered by Date resolved Problem Noted Date Diagnosed Date Gastro-esophageal reflux disease without esophag itis 03/27/2023 Current moderate episode of major depressive disorder without prior episode 03/27/2023 Nonrheumatic mitral valve regurgitation 09/22/19 23 Overview (09/22/2022): 2022 History of opioid abuse 11/11/2021 Overview (11/11/2021): sober since 2014 Depression 08/06/2014 Migraine without aura 08/06/2014 Small L occipital venous angioma 08/13/2009 Tobacco use disorder Generalized anxiety disorder documented as of this encounter (statuses as of 08/12/2024) Resolved Problems Problem Noted Date Diagnosed Date [...] any family members Transfer of care at [id number] records obtained 01/14/15: antibody screen negative, O-, [...] her mother plans on being her labor trolley coach driver 08/25/2015 Shanice Sanchez RN 08/25/15 Problem Action Taken Date entered Entered by Date resolved Signs of labor Rviewed signs of labor Aware how to reach learning consultant provider 08/31/2015 Shanice Sanchez RN 08/31/15 Problem [...] as of this encounter (statuses as of 08/12/2024) Immunizations Name Administration Dates Next Due HPV [...] the money to buy more. 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 Insurance will cover that. * Telephone Encounter - Maude Alcantar CPhT - 08/12/2024 7:37 AM EST Patients insurance would like to inform the office that LIDTOPIC MAX 10% CREAM is requiring additional information: Clinical Documentation. Prior authorization entered in Prom[employer] at [facility]. EOC# [id number] Please send to [facility] before 1400 on 08/12. Thank you, Maude Alcantar Machine Feeder Floorperson [facility] 08/12/2024,7:37 AM * Telephone Encounter - Kenya Dorantes CPhT - 08/11/2024 2:05 PM EST [facility] calling Lidocaine 10 % External Cream is not covered under insurance , Pharmacy is asking if doctor can change prescription to Lidocaine 5 % External Cream . [facility], [facility]-[address] [place] Thank you, Kenya Dorantes CPhT Machine Feeder Floorperson II [facility] ([facility]) (Formerly Telepharmacy) 08/11/2024,2:08 PM documented in this encounter Plan of Treatment Upcoming Encounters Date Type Department Care Team (Latest Contact Info) Description 08/14/2024 2:00 PM EST Office Visit Podiatry [facility] [address] [place] [address] Anne Marie Langston DPM [address] [place] [address] 08/21/2024 9:00 AM EST Hospital Encounter ENDO [facility], Endoscopy Room [facility] [address] [place] [phone] Nikunj Loo MD [address] [place] [address] 08/21/2024 9:00 AM EST - 08/21/2024 9:30 AM EST Surgery ENDO [facility], Endoscopy Room [facility] [address] [place] [phone] Nikunj Loo MD [address] [place] [address] ESOPHAGOGASTRODUODENOSCOPY (EGD), FLEXIBLE, TRANSORAL, DIAGNOSTIC 09/10/2024 8:00 AM EST Office Visit Sleep Disorders [facility]tr [facility] [address] [place] [phone] Yaz Louis DO [address] [place] [address] 09/10/2024 10:00 AM EST Nutrition Services Nutrition, [facility] [address] [place] [address] Millie Mary RDN [address] [place] [address] 11/20/2024 10:00 AM EDT [facility] [place] [address] [place] [address] Sarah Velásquez MD [address] [facility] [place] [address] Scheduled Procedures Name Priority Associated Diagnoses Date/Ti me ESOPHAGOGASTRODUODENOSCOPY ( EGD), FLEXIBLE, TRANSORAL, DIAGNOSTIC Nausea Heartburn Dysphagia, unspecified type 08/21/2024 9:00 AM EST Health Maintenance Due Date Last [...] Not on filedocumented as of this encounter Visit Diagnoses Diagnosis Ingrown toenail- Primary Ingrowing nail Nausea Nausea alone Heartburn Dysphagia, unspecified type documented in this encounter Care Teams Consumer Banker Relationship Specialty Start Date End Date Fawn Whitehead MD [address] [place] [address] [place] [phone] PCP - General Family Medicine 11/12/19 documented as of this encounter
--- OUTSIDE RECORDS SUMMARY | 2024-09-03 08:10 | External Medical Summary ---
Author Name Unknown Address Unknown Organization [id number]:[facility] - [address] [facility] [address] Laboratory Report Ordering Provider Test Date Status PIPPA HENAO 07/04/2024 15:44:50 Final Observation Date Value Abnormality Reference (Units ) Status HbA1C 07/04/2024 15:44:50 5.5 4.0-5.6 (% ) Final The use of HbA1c to monitor glycemic status is based on normal hemoglobin and HbA composition. This test should not be used in patients with abnormal hemoglobin that affects the half life of the red blood cell or the in vivo glycation rates. Glucose, estimated average 07/04/2024 15:44:50 111 <126 (mg/dL) Final Performing Location [facility] - [address] [facility] [address]
--- OUTSIDE RECORDS SUMMARY | 2024-09-03 08:10 | External Medical Summary ---
Author Name Unknown Address Unknown Organization [id number]:[facility] [place] [place] [address] [facility] [address] Laboratory Report Ordering Provider Test Date Status PIPPA HENAO 07/04/2024 15:44:50 Final Observation Date Value Abnormality Reference (Units ) Status BUN 07/04/2024 15:44:50 14 6-20 (mg/dL) Final Creatinine 07/04/2024 15:44:50 0.7 0.5-1.0 (mg/dL) Final Glomerular filtration rate/1.73 sq M.predicted [Volume Rate/Area] in Serum, Plasma or Blood by Creatinine-based formula (CKD-EPI) 07/04/2024 15:44:50 >90 >=60 (mL/min) Final eGFR is calculated based on the CKD-EPI 2020 equation. Sodium 07/04/2024 15:44:50 141 135-146 (m mol/L) Final Potassium 07/04/2024 15:44:50 4.3 3.5-5.1 (m mol/L) Final Cl 07/04/2024 15:44:50 103 98-107 (mm ol/L) Final CO2 07/04/2024 15:44:50 27 22-32 (mmo l/L) Final Anion gap 07/04/2024 15:44:50 11 7-15 (mmol /L) Final Glucose 07/04/2024 15:44:50 102 70-120 (mg /dL) Final Albumin 07/04/2024 15:44:50 4.5 3.8-5.0 (g /dL) Final AST (Aspartate aminotransferase) 07/04/2024 15:44:50 19 10-35 (U/L) Final Alk Phos 07/04/2024 15:44:50 72 35-130 (U/ L) Final Bilirubin, Total 07/04/2024 15:44:50 0.4 <=1 .2 (mg/dL) Final Calcium 07/04/2024 15:44:50 9.5 8.4-10.2 ( mg/dL) Final Protein 07/04/2024 15:44:50 7.1 6.0-8.3 (g /dL) Final ALT (Alanine aminotransferase) 07/04/2024 15:44:50 21 10-35 (U/L) Final Performing Location [facility] [place] [address] [facility] [address]
--- OUTSIDE RECORDS SUMMARY | 2024-09-03 08:10 | External Medical Summary ---
Author Name Unknown Address Unknown Organization K01:[facility] - [address] [facility] [address] Laboratory Report Ordering Provider Test Date Status PIPPA HENAO 07/04/2024 15:44:50 Final Observation Date Value Abnormality Reference (Units ) Status TSH 07/04/2024 15:44:50 0.59 0.27-4.20 (uIU/mL) Final Performing Location [facility] - [address] [facility] [address]
--- OUTSIDE RECORDS SUMMARY | 2024-09-03 08:10 | External Medical Summary | Summary of Care ---
Author Name Unknown Organization [facility] Address [address] [place] [address] Phone [phone] Care Team Providers Care Side Seam Machine Operator Name Role Phone Fawn Whitehead MD Primary Care Provide r Reason for Visit * Reason Comments New Problem R first toenail * Evaluate & Treat - Unlimited Visits (Within 30 days (routine)) - Authorized Specialty Diagnoses / Procedures Referred By Juan F de dios Referred To Contact Podiatry Diagnoses Ingrown toenail Fawn Whitehead MD [address] [place] [address] [place] [id number] Phone: tel: fax: Referral ID Status Reason Start Date Expiration Date Visits Requested Visits Authorized [id number] Authorized Specialty Services Required 08/08/[id number] Encounter Details Date Type Department Care Team (Late st Contact Info) Description 08/14/2024 2:00 PM EST Office Visit Podiatry [facility] [address] [place] [address] Anne Marie Langston DPM [address] [place] [address] Ingrowing nail, right great toe*; Pain in toe of right foot; Ingrown toenail [L60.0] Allergies Active Allergy Reactions Criticality Noted Date Comments Amitriptyline Rash High 09/28/2009 Rash Amoxicillin Rash High 08/21/2002 rash Gabapentin Hives High 06/02/2009 Hives Nortriptyline Hcl Rash High 09/28/2009 Rash Tramadol Rash High 08/06/2014 hives documented as of this encounter (statuses as of 08/14/2024) Medications Buprenorphine HCl 8 MG Sublingual Tablet Sublingual Take 1 Tablet by mouth in the morning. Active Probiotic Acidophilus BioBeads Oral Capsule Take by mouth 1 Capsule three times a day with meals . Active Ibuprofen 600 MG Oral Tablet (Motrin) Take by mouth 1 Tablet every 6 hours as needed (pain). With food. 30 Tablet 2 Active Additional Information Patient not taking.Reported on [...] the morning. 30 Tablet 2 4 Active Magnesium Oxide 400 MG Oral Capsule [...] the morning. 90 Tablet 1 4 Active Baclofen 20 MG Oral TabletIndication s:Neck pain Take 1 Tablet by mouth in the morning and 1 Tablet before bedtime. As needed for muscle pain. 30 Tablet 4 Active Lidocaine 5 % External CreamIndications :Ingrown toenail Apply pea size to the affected area daily as needed for pain 30 g 4 Active documented as of this encounter (statuses as of 08/14/2024) Active Problems Patient Care Coordination No te [...] as of this encounter (statuses as of 08/14/2024) Resolved Problems Problem Noted Date Diagnosed Date [...] any family members Transfer of care at [id number] records obtained 01/14/15: antibody screen negative, O-, [...] her mother plans on being her labor high school assistant football coach 08/25/2015 Shanice Sanchez RN 08/25/15 Problem Action Taken Date entered Entered by Date resolved Signs of labor Rviewed signs of labor Aware how to reach professor of economics provider 08/31/2015 Shanice Sanchez RN 08/31/15 Problem [...] as of this encounter (statuses as of 08/14/2024) Immunizations Name Administration Dates Next Due HPV [...] file Not on file Not on file LENDING ADVISOR Not on file Not on file Not on file documented as of this encounter Progress Notes * Anne Marie Langston DPM - 08/14/2024 2:21 PM EST Podiatry Established Note [facility] Name: Clarissa Quintero : 1985 Date: 08/14/2024 REASON FOR VISIT: Ingrowing nail, right great toe SUBJECTIVE: This patient is a 38 year old female who presents today with complaints of an ingrowingnail, right great toe. Pt states for the past 2 months she has noticed an ingrowing nail to the right great toe. She tried to remove this herself, but was unable to. Has been on 2 different abx with little relief. Has increased pain with pressure. Denies any other complaints. 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 Migraine without aura 08/06/2014 Other specified anemias Papanicolaou smear of cervix with atypical squamous cells of undetermined significance (ASC-US) 12/17/2008 Reflux esophagitis Small L occipital venous angioma 08/13/2009 Tobacco use disorder Vaginitis ALLERGIES: Review of patient's allergies indicates: Allergen Reactions Amitriptyline Rash Rash Amoxicillin Rash rash Neurontin [Gabapentin] Hives Hives Nortriptyline Hcl Rash Rash Tramadol Rash hives REVIEW OF SYSTEMS: CONSTITUTIONAL: No change in weight, No weakness, No fatigue, and No fevers, sweats, or chills EYE: No recent significant change in vision and No eye pain, redness, discharge EARS: No ear pain and No recent change in hearing NOSE: No history of frequent colds or sinusitis and No nasal stuffiness PULMONARY: No cough, sputum, or hemoptysis and No recent change in breathing CARDIOVASCULAR: No chest pain and No shortness of breath EXTREMITIES: Ingrowing nail, right great toe SKIN/INTEGUMENTARY: No edema, No rash, and No itching NEUROLOGIC: Normal balance, No headaches, No seizures, and No weakness PSYCHIATRIC: No depression, No anxiety, and No psychosis RIGHT FOCUSED PODIATRIC EXAM: Vitals: There were no vitals filed for this visit. General: Patient is awake alert oriented to person place time. No apparent distress. Vascular: DP/PT pulses palpable. CFT < 3 sec 1-5. Edema noted to the right great toe. Temperature gradientis normal warm to cold. Neurologic: Protective sensation intact to light touch. Sensation to sharp/dull is intact. Dermatological: Skin is normal in appearance with no open lesions or interdigital macerations. Nails 1-5 are normalin length and thickness. Pedal hair is noted. Ingrowing nail, lateral border, right great toe. Musculoskeletal: POP noted to the right great toe. No pain with active or passive ROM of the digits or ankle joint. Muscle strength is 5/5 for all muscle groups of the lower extremity. DIAGNOSTIC STUDIES: None ASSESSMENT: Ingrowing nail, lateral border, right great toe Pain in toe, right great toe PLAN: - Slant back procedure performed with a 6100 blade and nail nipper x1. Pt felt relief. - Triple abx ointment and a bandaid applied. - Activity to tolerance - OTC pain medication PRN. - Continue to wear good, supportive shoes. - Pt to RTC PRN. Instructed to call with any problems or questions. Anne Marie Langston DPM documented in this encounter Nursing Notes * Amber Way LPN - 08/14/2024 2:07 PM EST Pt presents for new concern, ingrown R first toenail x 2 months. Took 2 different antibiotics from PCP, continues to have pain. documented in this encounter Plan of Treatment Upcoming Encounters Date Type Department Care Team (Latest Contact Info) Description 08/21/2024 9:00 AM EST Hospital Encounter ENDO [facility], Endoscopy Room [facility] [address] [place], [place] [phone] Nikunj Loo MD [address] [place] [address] 08/21/2024 9:00 AM EST - 08/21/2024 9:30 AM EST Surgery ENDO [facility], Endoscopy Room [facility] [address] [place] [phone] Nikunj Loo MD [address] [place] [address] ESOPHAGOGASTRODUODENOSCOPY (EGD), FLEXIBLE, TRANSORAL, DIAGNOSTIC 09/10/2024 8:00 AM EST Office Visit Sleep Disorders Ctr [facility] [address] [place] [phone] Yaz Louis DO [address] [place] [address] 09/10/2024 10:00 AM EST Nutrition Services Nutrition, [facility] [address] [facility] [place], [place] [address] Millie Mary, MICHELLEN [address] [place], [place] [address] 11/20/2024 10:00 AM EDT Office Visit Neurology [facility] [place] [address] [place] [address] Sarah Velásquez MD [address] [place] [address] Scheduled Procedures Name Priority Associated Diagnoses Date/Ti me ESOPHAGOGASTRODUODENOSCOPY ( EGD), FLEXIBLE, TRANSORAL, DIAGNOSTIC Nausea Heartburn Dysphagia, unspecified type 08/21/2024 9:00 AM EST Scheduled Referrals Name Type Priority Associated Diagnoses Orde r Schedule PODIATRY REFERRAL OP Referral Within 30 days (routine) Ingrown toenail Ordered: 08/08/2024 Health Maintenance Due Date Last Done Comments [...] as of this encounter Visit Diagnoses Diagnosis Ingrowing nail, right great toe- Primary Ingrowing nail Pain in toe of right foot Pain in limb Ingrown toenail [L60.0] Ingrowing nail Nausea Nausea alone Heartburn Dysphagia, unspecified type documented in this encounter Care Teams Side Seam Machine Operator Relationship Specialty Start Date End Date Fawn Whitehead MD [address] [place] [address] [place] [address] PCP - General Family Medicine 11/12/19 documented as of this encounter
--- OUTSIDE RECORDS SUMMARY | 2024-09-03 08:10 | External Medical Summary | Summary of Care ---
Author Name Unknown Organization [facility] Address [address] [place] [address] Phone [phone] Care Team Providers Care Software Analyst Name Role Phone Fawn Whitehead MD Primary Care Provide r Reason for Visit * Reason Comments Outpatient Testing Encounter Details Date Type Department Care Team (Late st Contact Info) Description 07/04/2024 4:00 PM EDT Laboratory Laboratory [address] [place] [phone] [place] [address] [employer] Other*[id number]; Fatigue, unspecified type; Weight gain Allergies Active Allergy Reactions Criticality Noted Date Comments Amitriptyline Rash High 09/28/2009 Rash Amoxicillin Rash High 08/21/2002 rash Gabapentin Hives High 06/02/2009 Hives Nortriptyline Hcl Rash High 09/28/2009 Rash Tramadol Rash High 08/06/2014 hives documented as of this encounter (statuses as of 07/04/2024) Medications Medication Sig Dispensed Refills Start Date End Date Status Buprenorphine HCl 8 MG Sublingual Tablet Sublingual Take 1 Tablet by mouth in the morning. Active Probiotic Acidophilus BioBeads Oral Capsule Take by mouth 1 Capsule three times a day with meals . Active Ibuprofen 600 MG Oral Tablet (Motrin) Take by mouth 1 Tablet every 6 hours as needed (pain). With food. 30 Tablet 03/16/2022 Active Additional Information Patient not taking.Reported on 07/04/2024 Multi Vitamin Oral Tablet Take by mouth. Active Ajovy 225 MG/1.5ML Subcutaneous Solution Auto-injector (Fremanezumab-vfrm) Inject 1 pen under the skin Every Month. 1.5 mL 3 05/22/2024 Active Additional Information Patient not taking.Reported on 07/04/2024 Riboflavin 400 MG Oral Tablet Take 1 Tablet by mouth in the morning. 30 Tablet 2 05/22/2024 Active Magnesium Oxide 400 MG Oral Capsule Take 1 Capsule by mouth in the morning. 30 Capsule 2 05/22/2024 Active Aimovig 140 MG/ML Subcutaneous Solution Auto-injector (Erenumab-aooe) Inject 140 mg under the skin Every Month. 1 mL 3 05/26/2024 Active buPROPion HCl ER (XL) 150 MG Oral Tablet Extended Release 24 Hour (Wellbutrin XL)Indications:Weig ht gain,Generalized anxiety disorder Take 1 Tablet by mouth in the morning. 90 Tablet 1 07/04/2024 Active documented as of this encounter (statuses as of 07/04/2024) Active Problems Patient Care Coordination No te Formatting of this note is d ifferent from the original. Problem Action Taken Date entered Entered by Date resolved Problem Noted Date Diagnosed Date Gastro-esophageal reflux disease without esophag itis 03/27/2023 Current moderate episode of major depressive disorder without prior episode 03/27/2023 Nonrheumatic mitral valve regurgitation 09/22/19 23 Overview: 2022 History of opioid abuse 11/11/2021 Overview: sober since 2014 Depression 08/06/2014 Migraine without aura 08/06/2014 Small L occipital venous angioma 08/13/2009 Tobacco use disorder Generalized anxiety disorder documented as of this encounter (statuses as of 07/04/2024) Resolved Problems Problem Noted Date Diagnosed Date Resolved Date Equinus contracture of left ankle 03/27/2023 10/04/2023 GBS (group B Streptococcus c rosa), +RV culture, currently 08/19/2015 09/24/2015 Overview: Pt allergic to amoxicillin (rash); vanco and penicillin susceptible Supervision of high-risk 05/19/2015 09/24/2015 Overview: subutex use in - pt desires this info not be shared with FOB or any family members Transfer of care at [id number] records obtained 01/14/15: antibody screen negative, O-, Hgb/Hct: 12.2/36.5, RPR nonreactive, HbsAg nonreactive, HIV negative, C&G negative, rubella immune 03/30/15:quad screen negative 02/09/15: negative 04/19/15: normal anatomy sono Desires PP BTL Problem Action Taken Date entered Entered by Date resolved Pt here today due to pain issues Reviewed comfort measures with pt 08/16/2015 Amy lAexander RN 08/16/15 Problem Action Taken Date entered Entered by Date resolved of significant other Emotional support offered due to unexpected loss of significant other. Patient notes her mother plans on being her labor high school football coach 08/25/2015 Shanice Sanchez RN 08/25/15 Problem Action Taken Date entered Entered by Date resolved Signs of labor Rviewed signs of labor Aware how to reach administration professional provider 08/31/2015 Shanice Sanchez RN 08/31/15 Problem [...] 09/13/15 Rh negative status during 05/19/2015 09/24/2015 Overview: Rhogam candidate Rhogam given 06/15/2015 Bronwyn Harmon, ASHLY Tobacco smoking complicating 05/19/2015 09/24/2015 Overview: Smoking 1ppd @ NOB 24w1d Adjustment disorder with depressed mood 08/06/2014 08/06/2014 Adjustment disorder with depressed mood 10/18/2007 08/06/2014 History of tobacco use 12/01 Papanicolaou smear of cervix with atypical squamous cells of undetermined significance (ASC-US) 08/06/2014 Other specified anemias 12/2013 Anxiety state 08/08/2011 Reflux esophagitis 4 Migraine 08/06/2014 Vaginitis 08/06/2014 documented as of this encounter (statuses as of 07/04/2024) Immunizations Name Administration Dates Next Due HPV [...] ages 0-17 years) Not on file 07/09/2023 Sex and Gender Information Value Date Recorded Sex Assigned at Female 07/09/2023 12:55 PM EST Gender Identity Female 07/09/2023 12:55 PM EST Sexual Orientation Straight 07/09/2023 12 :55 PM EST Job Start Date Occupation Industry Not on file Not on file Not on file documented as of this encounter Plan of Treatment Upcoming Encounters Date Type Department Care Team (Latest Contact Info) Description 07/16/2024 8:30 AM EST Hospital Encounter ENDO [facility], Endoscopy Room [facility] [address] [place] [phone] Clarissa Arellano DO [address] [place] [address] 07/16/2024 8:30 AM EST - 07/16/2024 9:00 AM EST Surgery ENDO [facility], Endoscopy Room [facility] [address] [place] [phone] Clarissa Arellano DO [address] [place] [address] ESOPHAGOGASTRODUODENOSCOPY (EGD), FLEXIBLE, TRANSORAL, DIAGNOSTIC 09/10/2024 8:00 AM EST Office Visit Sleep Disorders Ctr [facility] [address] [place] [phone] Yaz Louis, [address] [place] [address] 09/10/2024 10:00 AM EST Nutrition Services Nutrition, [facility] [address] [place] [address] Millie Mary, SHAYNA [address] [place] [address] 11/20/2024 10:00 AM EDT Office Visit Neurology [facility] [address] [facility] [place] [address] Sarah Velásquez MD [address] [facility] [place] [address] Pending Results Name Type Priority Associated Diagnoses Date /Time MYCODE SUBSEQUENT ADULT Lab Routine MyCode Research Other*[id number] 07/04/2024 3:44 PM EDT CBC WITH WBC DIFFERENTIAL AND ANEMIA REFLEX WORKUP Lab Routine Fatigue, unspecified type 07/04/2024 3:44 PM EDT TSH WITH FREE T4 IF INDICATED Lab Routine Fatigue, unspecified type 07/04/2024 3:44 PM EDT COMPREHENSIVE METABOLIC PANEL Lab Routine Fatigue, unspecified type 07/04/2024 3:44 PM EDT HEMOGLOBIN A1C Lab Routine Weight gain 07/04/2024 3:44 PM EDT MYCODE SST1 Lab Routine [employer] Other*[id number] 07/04/2024 3:44 PM EDT MYCODE SST2 Lab Routine [employer] Other*[id number] 07/04/2024 3:44 PM EDT ANEMIA CBC Lab Routine Fatigue, unspecified type 07/04/2024 3:44 PM EDT DIFFERENTIAL, AUTOMATED Lab Routine Fatigue, unspecified type 07/04/2024 3:44 PM EDT ANEMIA REFLEX CHEMISTRY HOLD Lab Routine Fatigue, unspecified type 07/04/2024 3:44 PM EDT Scheduled Procedures Name Priority Associated Diagnoses Date/Ti me ESOPHAGOGASTRODUODENOSCOPY ( EGD), FLEXIBLE, TRANSORAL, DIAGNOSTIC Nausea Heartburn Dysphagia, unspecified type 07/16/2024 8:30 AM EST Health Maintenance Due Date Last Done Comments Depression Monitoring 08/09/2021 08/09/2020 COVID-19 Vaccine ( season) 2024 Influenza Vaccine (FLU shot) (#1) 2024 Pap Smear 08/18/2025 08/18/2022, 03/03, 11/29/2016, Additional history exists Diabetes Screening 10/05/2026 10/05/2023, 0 11/11/2021, 03/08/2015, Additional history exists Cervical Cancer Screening 08/18/2027 [...] as of this encounter Visit Diagnoses Diagnosis [employer] Other*[id number] Fatigue, unspecified type Weight gain Abnormal weight gain Nausea Nausea alone Heartburn Dysphagia, unspecified type documented in this encounter Care Teams Software Analyst Relationship Specialty Start Date End Date Fawn Whitehead MD [address] [place] [address] [place] [phone] PCP - General Family Medicine 11/12/19 documented as of this encounter
--- OUTSIDE RECORDS SUMMARY | 2024-09-03 08:10 | External Medical Summary ---
Author Name Unknown Address Unknown Organization K01:LABORATORY [facility] - [address] [place] [address] Laboratory Report Ordering Provider Test Date Status TEODORO STAFFORD 07/04/2024 15:44:50 Final Observation Date Value Abnormality Reference (Units ) Status MYCODE SPECIMEN-SST 07/04/2024 15:44:50 Freezing of extracted DNA, whole blood and/or serum. Final Performing Location [facility] - [address] [facility] [address]
--- OUTSIDE RECORDS SUMMARY | 2024-09-03 08:10 | External Medical Summary ---
Author Name Unknown Address Unknown Organization K01:[facility] - [address] [facility] [address] Laboratory Report Ordering Provider Test Date Status PIPPA HENAO 07/04/2024 15:44:50 Final Observation Date Value Abnormality Reference (Units ) Status SYNC LEUKOCYTES IN BLOOD BY AUTOMATED COUNT 07/04/2024 15:44:50 6.46 4.00-10.80 (K/uL) Final Segs 07/04/2024 15:44:50 67.8 40.0-75.0 (%) Final Lymphs % 07/04/2024 15:44:50 21.5 18.0-42.0 (%) Final Monos 07/04/2024 15:44:50 9.1 1.0-11.0 (%) Final Eosinophils 07/04/2024 15:44:50 0.9 0.0-6.0 (%) Final Basos 07/04/2024 15:44:50 0.5 0.0-2.0 (%) Final Immature Granulocyte, Percent 07/04/2024 15:44:50 0.2 0.0-2.0 (%) Final Absolute Segs 07/04/2024 15:44:50 4.38 1.80-7.70 (K/uL) Final Lymphs, absolute 07/04/2024 15:44:50 1.39 1.00-4.80 (K/ul) Final Monos, Abs 07/04/2024 15:44:50 0.59 0.00-1.10 (K/uL) Final Eos, Abs 07/04/2024 15:44:50 0.06 0.00-0.70 (K/uL) Final Basos, Abs 07/04/2024 15:44:50 0.03 0.00-0.20 (K/uL) Final Immature Granulocytes, Number 07/04/2024 15:44:50 0.01 0.00-0.20 (K/uL) Final Performing Location [facility]ORY [facility] - [address] [facility] [address]
--- OUTSIDE RECORDS SUMMARY | 2024-09-03 08:10 | External Medical Summary | Summary of Care ---
Author Name Unknown Organization [facility] Address [address] [place] [address] Phone [phone] Care Team Providers Care [employer] Dean Name Role Phone Fawn Whitehead MD Primary Care Provide r Reason for Visit * Reason Onset Date Comments Precert Denied 05/23/2024 AIMOVIG Encounter Details Date Type Department Care Team (Late st Contact Info) Description 05/23/2024 Telephone Neurology [facility] [address] [place] [address] Sarah Vanegas PA-C [address] [place] [address] Precert Denied (AIMOVIG) Allergies Active Allergy Reactions Criticality Noted Date Comments Amitriptyline Rash High 09/28/2009 Rash Amoxicillin Rash High 08/21/2002 rash Gabapentin Hives High 06/02/2009 Hives Nortriptyline Hcl Rash High 09/28/2009 Rash Tramadol Rash High 08/06/2014 hives documented as of this encounter (statuses as of 05/28/2024) Medications Medication Sig Dispensed Refills Start Date [...] (pain). With food. 30 Tablet 03/16/2022 Active Multi Vitamin Oral Tablet Take by mouth. Active predniSONE 10 MG Oral Tablet (Deltasone) 6 tab x 3 days, 4 tab x 3 days, 3 tab x 3 days, 2 tab x 3 days 1 tab x 3 days 48 Tablet 05/22/2024 Active Ajovy 225 MG/1.5ML Subcutaneous Solution Auto-injector (Fremanezumab-vfrm) Inject 1 pen under the skin Every Month. 1.5 mL 3 05/22/2024 Active Riboflavin 400 MG Oral Tablet Take 1 Tablet by mouth in the morning. 30 Tablet 2 05/22/2024 Active Magnesium Oxide 400 MG Oral Capsule Take 1 Capsule by mouth in the morning. 30 Capsule 2 05/22/2024 Active Aimovig 140 MG/ML Subcutaneous Solution Auto-injector (Erenumab-aooe) Inject 140 mg under the skin Every Month. 1 mL 3 05/26/2024 Active documented as of this encounter (statuses as of 05/28/2024) Active Problems Patient Care Coordination No te Formatting of this note is d ifferent from the original. Problem Action Taken Date entered Entered by Date resolved Problem Noted Date Diagnosed Date Gastro-esophageal reflux disease without esophag itis 03/27/2023 Current moderate episode of major depressive disorder without prior episode 03/27/2023 Nonrheumatic mitral valve regurgitation 09/22/19 Overview: 2022 History of opioid abuse 11/11/2021 Overview: sober since 2014 Depression 08/06/2014 Migraine without aura 08/06/2014 Small L occipital venous angioma 08/13/2009 Tobacco use disorder Generalized anxiety disorder documented as of this encounter (statuses as of 05/28/2024) Resolved Problems Problem Noted Date Diagnosed Date Resolved Date Equinus contracture of left ankle 03/27/2023 10/04/2023 GBS (group B Streptococcus c arrier), +RV culture, currently 08/19/2015 09/24/2015 Overview: Pt allergic to amoxicillin (rash); vanco and penicillin susceptible Supervision of high-risk 05/19/2015 09/24/2015 Overview: subutex use in - pt desires this info not be shared with FOB or any family members Transfer of care at [id number] records obtained 01/14/15: antibody screen negative, O-, [...] her mother plans on being her labor trampoline team coach 08/25/2015 Shanice Sanchez RN 08/25/15 Problem Action Taken Date entered Entered by Date resolved Signs of labor Rviewed signs of labor Aware how to reach bond trader provider 08/31/2015 Shanice Sanchez RN 08/31/15 Problem [...] Overview: Rhogam candidate Rhogam given 06/15/2015 Bronwyn Harmon RN Tobacco smoking complicating 05/19/2015 09/24/2015 Overview: Smoking [...] as of this encounter (statuses as of 05/28/2024) Immunizations Name Administration Dates Next Due DTP Vaccine 12/10/1990, 8,05/11/1987,03/16,01/19/1987 HEP B - Hepatitis B (Adole/H igh Risk Ped, 11-15 yrs 04/21/1996,06/08/1994,04/18/1994 HIB PRP-T, 4 Dose, PF, IM (H iberix, ActHib) 07/11/1988 HPV Vaccine, 4-Valent 08/16/2009,05/17/2009,0604/2009 MMR - Measles/Mumps/Rubella Vaccine 04/18/1994,0 02/15/1988 OPV - Polio Virus Vaccine (Oral) 991,09/12/1988,05/11/1987,03/16 PPD 10/04/2023, 2,03/22/2011,03/07,11/08/2006,10/28/2004 Pneumococcal Polysaccharide PPV23 (Pneumovax) 08/08/2011(Deferred: Patient Refused) Seasonal Influenza, Trivalen t, (IIV3), with Preserv, (Fluzone) 08/08/2011(Deferred: Patient Refused) TB Ayana Test 06/08/2000, 8,04/21/1996,04/18,08/09/1990 TD - Tetanus/Diptheria (ADULT) 05/03/1998 TDAP (age 10 and older)(Boostrix) 03/20/2018 TDAP, [...] encounter Miscellaneous Notes * Telephone Encounter - Sarah Vanegas PA-C - 05/26/2024 11:56 AM EDT Already failed Emgality. Will order amovig Sarah Vanegas PA-C 05/26/2024 11:59 AM * Telephone Encounter - Evelyne Kaufman OSA - 05/26/2024 6:57 AM EDT Per [facility] -the preferred meds after Emgality are Aimovig and then nurtec. Can pt be switched - please advise - ty * Telephone Encounter - Jose Luis Vogel, head end desizing machine operator - 05/23/2024 12:56 PM EDT New or re-auth: new Patient Clarissa Quintero needs a prior authorization for a medication through their [facility] Family insurance. Medication: Ajovy Formulation: 225mg/1.5mL prefilled pen Dosage: 1.5mL for 30ds ID: [id number] [id number] PCN:[id number] Target ship date is n/a. Thank you very much, Syl Vogel Chronic Condition Nurse, [facility] 05/23/2024 12:57 PM documented in this encounter Plan of Treatment Upcoming Encounters Date Type Department Care Team (Latest Contact Info) Description 07/16/2024 8:30 AM EST Hospital Encounter ENDO [facility], Endoscopy Room [facility] [address] [place] [phone] Clarissa Arellano DO [address] [place] [phone] 07/16/2024 8:30 AM EST - 07/16/2024 9:00 AM EST Surgery ENDO [facility], Endoscopy Room [facility] [address] [place] [phone] Clarissa Arellano DO [address] [place] [address] ESOPHAGOGASTRODUODENOSCOPY (EGD), FLEXIBLE, TRANSORAL, DIAGNOSTIC 11/20/2024 10:00 AM EDT Office Visit Neurology [facility] [place] [address] [facility] [place] [address] Sarah Velásquez MD [address] [facility] [place] [address] Scheduled Procedures Name Priority Associated Diagnoses Date/Ti [...] filedocumented as of this encounter Care Teams [employer] Dean Relationship Specialty Start Date End Date Fawn Whitehead MD [address] [place] [address] [place] [phone] PCP - General Family Medicine 11/12/19 documented as of this encounter
--- OUTSIDE RECORDS SUMMARY | 2024-09-03 08:10 | External Medical Summary | Summary of Care ---
Author Name Unknown Organization [facility] Address [address] [place] [address] Phone [phone] Care Team Providers Care Manager Willow Name Role Phone Fawn Whitehead MD Primary Care Provide r Reason for Visit * Reason Onset Date Comments Medication Pre-auth 08/11/2024 Encounter Details Date Type Department Care Team (Late st Contact Info) Description 08/11/2024 Telephone Family [address] [phone] Fawn Whitehead MD [address] [place] [address] [place] [phone] Medication Pre-auth Allergies Active Allergy Reactions Criticality [...] any family members Transfer of care at [id number] records obtained 01/14/15: antibody screen negative, O-, [...] signs of labor Aware how to reach mechatronics technologist provider 08/31/2015 Shanice Sanchez RN 08/31/15 Problem [...] 08/12/2024) Immunizations Name Administration Dates Next Due DTP Vaccine 12/10/1990, 8,05/11/1987,03/16,01/19/1987 HEP B - Hepatitis B (Adole/H igh Risk Ped, 11-15 yrs 04/21/1996,06/08/1994,04/18/1994 HIB PRP-T, 4 Dose, PF, IM (H iberix, ActHib) 07/11/1988 HPV Vaccine, 4-Valent 08/16/2009,05/17/2009,04/2009 MMR - Measles/Mumps/Rubella Vaccine 04/18/1994,0 02/15/1988 OPV - Polio Virus Vaccine (Oral) 991,09/12/1988,05/11/1987,03/16 PPD 10/04/2023, 2,03/22/2011,03/07,11/08/2006,10/28/2004 Pneumococcal Polysaccharide PPV23 (Pneumovax) 08/08/2011(Deferred: Patient Refused) Seasonal Influenza Vac., MDV , IM, 0.5 mL (Fluzone) 08/08/2011(Deferred: Patient Refused) TB Ayana Test [...] file Not on file Not on file 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 Alternative sent. Thank You, Ham Noe, Pharm-D Clinical Pharmacist [facility] ([facility]) [phone] 08/12/2024, 8:57 AM * Telephone Encounter - Fawn Whitehead MD - 08/12/2024 8:29 AM EST Med [...] Documentation. Prior authorization entered in [employer] at [facility]. EOC# [id number] Please send to [facility] before 1400 on 08/12. Thank you, Maude Alcantar Crm Dynamics Developer [facility] 08/12/2024,7:37 AM * Telephone Encounter - Kenya Dorantes CPhT - 08/11/2024 2:05 PM EST [facility] calling Lidocaine 10 % External Cream is not covered under insurance , Pharmacy is asking if doctor can change prescription to Lidocaine 5 % External Cream . [facility], [facility]-[address] [place] Thank you, Kenya Dorantes CPhT Crm Dynamics Developer II [facility] ([facility]) (Formerly Telepharmacy) 08/11/2024,2:08 PM documented in this encounter Plan of Treatment Upcoming Encounters Date Type Department Care Team (Latest Contact Info) Description 08/14/2024 2:00 PM EST Office Visit Podiatry [facility] [address] [place] [address] Anne Marie Langston DPM [address] [place] [address] 08/21/2024 9:00 AM EST Hospital Encounter ENDO [facility], Endoscopy Room [facility] [address] [place] [phone] Nikunj Loo MD [address] [place] [address] 08/21/2024 9:00 AM EST - 08/21/2024 9:30 AM EST Surgery ENDO [facility], Endoscopy Room [facility] [address] [place] [phone] Nikunj Loo MD [address] [place] [address] ESOPHAGOGASTRODUODENOSCOPY (EGD), FLEXIBLE, TRANSORAL, DIAGNOSTIC 09/10/2024 8:00 AM EST Office Visit Sleep Disorders [facility]tr [facility] 132 [place] [phone] Yaz Louis, DO [address] [place] [address] 09/10/2024 10:00 AM EST Nutrition Services Nutrition, [facility] 132 [place] [address] Millie Mary, MICHELLEN [address] [facility] [address] 11/20/2024 10:00 AM EDT Office Visit Neurology [facility] [address] [place] [address] Sarah Velásquez MD [address] [place] [address] Scheduled Procedures Name Priority Associated Diagnoses Date/Ti [...] Additional history exists HPV (Gardasil) Vaccine Completed , 05/17/2009, 02/08/2009 MENINGOCOCCAL (MENACTRA/MENVEO) Aged Out No [...] type documented in this encounter Care Teams Manager Willow Relationship Specialty Start Date End Date Fawn Whitehead MD [address] [place] [address] [place] [phone] PCP - General Family Medicine 11/12/19 documented as of this encounter
--- OUTSIDE RECORDS SUMMARY | 2024-09-03 08:10 | External Medical Summary | Summary of Care ---
Author Name Unknown Organization [facility] Address [address] [place] [address] Phone [phone] Care Team Providers Care Creative/Art Director Name Role Phone Fawn Whitehead MD Primary Care Provide r Encounter Details Date Type Department Care Team (Late st Contact Info) Description 07/28/2024 Orders Only Outcomes Research Department [address] [place] [address] Faith Gee CHRA [employer] Other*[id number] Allergies Active Allergy Reactions Criticality Noted Date Comments Amitriptyline Rash High 09/28/2009 Rash Amoxicillin Rash High 08/21/2002 rash Gabapentin Hives High 06/02/2009 Hives Nortriptyline Hcl Rash High 09/28/2009 Rash Tramadol Rash High 08/06/2014 hives documented as of this encounter (statuses as of 07/28/2024) Medications Buprenorphine HCl 8 MG Sublingual Tablet [...] 1 mL 3 07/22/2024 12:19 PM EST 4 Active buPROPion HCl ER (XL) 150 MG Oral Tablet Extended Release 24 Hour (Wellbutrin XL)Indications:W eight gain,Generalized anxiety disorder Take 1 Tablet by mouth in the morning. 90 Tablet 1 4 Active Baclofen 20 MG Oral TabletIndication s:Neck pain Take 1 Tablet by mouth in the morning and 1 Tablet before bedtime. As needed for muscle pain. 30 Tablet 4 Active documented as of this encounter (statuses as of 07/28/2024) Active Problems Patient Care Coordination No te [...] as of this encounter (statuses as of 07/28/2024) Resolved Problems Problem Noted Date Diagnosed Date [...] any family members Transfer of care at [id number] records obtained 01/14/15: antibody screen negative, O-, [...] her mother plans on being her labor coach driver 08/25/2015 Shanice Sanchez RN 08/25/15 Problem Action Taken Date entered Entered by Date resolved Signs of labor Rviewed signs of labor Aware how to reach on air director provider 08/31/2015 Shanice Sanchez RN 08/31/15 Problem [...] (06/15/2015): Rhogam candidate Rhogam given 06/15/2015 Bronwyn Harmon, ASHLY Tobacco smoking complicating 05/19/2015 09/24/2015 Overview (05/19/2015): [...] as of this encounter (statuses as of 07/28/2024) Immunizations Name Administration Dates Next Due HPV [...] file Not on file Not on file 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 Not on file Not on file Not on file documented as of this encounter Plan of Treatment Upcoming Encounters Date Type Department Care Team (Latest Contact Info) Description 08/21/2024 9:00 AM EST Hospital Encounter ENDO [facility], Endoscopy Room [facility] [address] [phone] Nikunj Loo MD [address] [address] 08/21/2024 9:00 AM EST - 08/21/2024 9:30 AM EST Surgery ENDO [facility], Endoscopy Room [facility] [address] [place] [address] Nikunj Loo MD [address] [facility] [place] [address] ESOPHAGOGASTRODUODENOSCOPY (EGD), FLEXIBLE, TRANSORAL, DIAGNOSTIC 09/10/2024 8:00 AM EST Office Visit Sleep Disorders Ctr [facility] [address] [facility] [place] [phone] Yaz Louis, [address] [facility] [address] 09/10/2024 10:00 AM EST Nutrition Services Nutrition, [facility] [address] [facility] [place] [address] Millie Mary RDN [address] [facility] [address] 11/20/2024 10:00 AM EDT Office Visit Neurology [facility] [address] [place] [address] Sarah Velásquez MD [address] [place] [address] Scheduled Orders Name Type Priority Associated Diagnoses Orde r Schedule MYCODE SUBSEQUENT ADULT Lab Routine [employer] Other*[id number] Every 6 Months for 2 Occurrences starting 07/28/2024 until 08/17/2025 Scheduled Procedures Name Priority Associated Diagnoses Date/Ti [...] this encounter Visit Diagnoses Diagnosis [employer] Other*[id number] Nausea Nausea alone Heartburn Dysphagia, unspecified type documented in this encounter Care Teams Creative/Art Director Relationship Specialty Start Date End Date Fawn Whitehead MD [address] [place] [address] [place] [address] PCP - General Family Medicine 11/12/19 documented as of this encounter
--- OUTSIDE RECORDS SUMMARY | 2024-09-03 08:10 | External Medical Summary | Summary of Care ---
Author Name Unknown Organization [facility] Address [address] [place] [address] Phone [phone] Care Team Providers Care Managing Principal Name Role Phone Fawn Whitehead MD Primary Care Provide r Reason for Visit * Reason Comments Acute Encounter Details Date Type Department Care Team (Late st Contact Info) Description 07/16/2024 3:40 PM EST Office Visit Family Medicine [address] [phone] Reema Genao PA-C [address] [place] [address] [place] [address] Neck pain* Allergies Active Allergy Reactions Criticality Noted Date Comments Amitriptyline Rash High 09/28/2009 Rash Amoxicillin Rash High 08/21/2002 rash Gabapentin Hives High 06/02/2009 Hives Nortriptyline Hcl Rash High 09/28/2009 Rash Tramadol Rash High 08/06/2014 hives documented as of this encounter (statuses as of 07/16/2024) Medications Buprenorphine HCl 8 MG Sublingual Tablet Sublingual Take 1 Tablet by mouth in the morning. Active Probiotic Acidophilus BioBeads Oral Capsule Take by mouth 1 Capsule three times a day with meals . Active Ibuprofen 600 MG Oral Tablet (Motrin) Take by mouth 1 Tablet every 6 hours as needed (pain). With food. 30 Tablet Active Additional Information Patient not taking.Reported on [...] the skin Every Month. 1 mL 3 06/25/2024 10:12 AM EDT 4 Active buPROPion HCl ER (XL) 150 MG Oral Tablet Extended Release 24 Hour (Wellbutrin XL)Indications:W eight gain,Generalized anxiety disorder Take 1 Tablet by mouth in the morning. 90 Tablet 1 4 Active Baclofen 20 MG Oral TabletIndication s:Neck pain Take 1 Tablet by mouth in the morning and 1 Tablet before bedtime. As needed for muscle pain. 30 Tablet 4 Active predniSONE 20 MG Oral Tablet (Deltasone)Indic ations:Neck pain Take 2 Tablets by mouth in the morning for 5 days. 10 Tablet 4 07/21/20 24 Active documented as of this encounter (statuses as of 07/16/2024) Active Problems Patient Care Coordination No te [...] as of this encounter (statuses as of 07/16/2024) Resolved Problems Problem Noted Date Diagnosed Date [...] any family members Transfer of care at [id number] records obtained 01/14/15: antibody screen negative, O-, [...] her mother plans on being her labor other sports coach or instructor 08/25/2015 Shanice Sanchez RN 08/25/15 Problem Action Taken Date entered Entered by Date resolved Signs of labor Rviewed signs of labor Aware how to reach spinal surgeon provider 08/31/2015 Shanice Sanchez RN 08/31/15 Problem [...] as of this encounter (statuses as of 07/16/2024) Immunizations Name Administration Dates Next Due HPV [...] No 07/09/2023 Does the household have a unm cancer centerlar source of income? 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 Not on file Not on file Not on file documented as of this encounter Last Filed Vital Signs Vital Sign Reading Time Taken Comments Blood Pressure 120/72 07/16/2024 3:20 PM EST Pulse 67 07/16/2024 3:20 PM EST Temperature 35.9 C (96.6 F) 07/16/2024 3:20 PM ES T Respiratory Rate 16 07/16/2024 3:20 PM EST Oxygen Saturation - - Inhaled Oxygen Concentration - - Weight 91.6 kg (202 lb) 07/16/2024 3:20 PM EST Height - - Body Mass Index 32.6 07/04/2024 3:16 PM EDT documented in this encounter Progress Notes * Reema Genao PA-C - 07/16/2024 3:43 PM EST Nursing Notes: Alexandria Herr LPN 07/16/24 1526 Signed Neck & back pain x 1 1/2 weeks Lower back, left shoulder, & right neck Pt here today with muscle soreness at neck, left scapula, and lower back. 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 No injury that she is aware of. Pt denies swelling, redness, bruising. Pt has been taking ibuprofen with little relief. Has been sleeping on a heating pad. Review of patient's allergies indicates: Allergen Reactions Amitriptyline Rash Rash Amoxicillin Rash rash Neurontin [Gabapentin] Hives Hives Nortriptyline Hcl Rash Rash Tramadol Rash hives Current Outpatient Medications Medication Sig Dispense Refill Buprenorphine HCl 8 MG Sublingual Tablet Sublingual Take 1 Tablet by mouth in the morning. Probiotic Acidophilus BioBeads Oral Capsule Take by mouth 1 Capsule three times a day with meals . Multi Vitamin Oral Tablet Take by mouth. Riboflavin 400 MG Oral Tablet Take 1 Tablet by mouth in the morning. 30 Tablet 2 Magnesium Oxide 400 MG Oral Capsule Take 1 Capsule by mouth in the morning. 30 Capsule 2 Aimovig 140 MG/ML Subcutaneous Solution Auto-injector (Erenumab-aooe) Inject 140 mg under the skin Every Month. 1 mL 3 buPROPion HCl ER (XL) 150 MG Oral Tablet Extended Release 24 Hour (Wellbutrin XL) Take 1 Tablet by mouth in the morning. 90 Tablet 1 Baclofen 20 MG Oral Tablet Take 1 Tablet by mouth in the morning and 1 Tablet before bedtime. As needed for muscle pain. 30 Tablet 0 predniSONE 20 MG Oral Tablet (Deltasone) Take 2 Tablets by mouth in the morning for 5 days. 10 Tablet 0 Ibuprofen 600 MG Oral Tablet (Motrin) Take by mouth 1 Tablet every 6 hours as needed (pain). With food. (Patient not taking: Reported on 07/16/2024) 30 Tablet 0 Ajovy 225 MG/1.5ML Subcutaneous Solution Auto-injector (Fremanezumab-vfrm) Inject 1 pen under the skin Every Month. (Patient not taking: Reported on 07/16/2024) 1.5 mL 3 No current facility-administered medications for this visit. 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 Migraine without aura 08/06/2014 Other specified anemias Papanicolaou smear of cervix with atypical squamous cells of undetermined significance (ASC-US) 12/17/2008 Reflux esophagitis Small L occipital venous angioma 08/13/2009 Tobacco use disorder Vaginitis Social History Socioeconomic History Marital status: Single Spouse name: Not on file Number of children: 2 Years of education: Not on file Highest education level: Not on file Occupational History 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 Employer: [employer] Employer: [employer] 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: [employer] Comment: [facility] Tobacco Use Smoking status: Former Current packs/day: 1.00 Average packs/day: 1 pack/day for 15.0 years (15.0 ttl pk-yrs) Types: Cigarettes Smokeless tobacco: Never Tobacco comments: 18 Vaping Use Vaping status: Never Used Substance and Sexual Activity Alcohol use: Yes Comment: occassional- less than 1 x per week Drug use: No Comment: sober since 2014 Sexual activity: Yes Partners: Male control/protection: Surgical Comment: tubal Other Topics Concern Service No Blood Transfusions No Caffeine Concern Yes Occupational Exposure Yes Hobby Hazards No Sleep Concern No Stress Concern Yes Weight Concern No Special Diet No Back Care No Exercise No Bike Helmet Not Asked Seat Belt Yes Self-Exams Not Asked Social History Narrative Not on file Social Needs Financial Resource Strain: Low Risk (07/09/2023) Financial Resource Strain Do you have any trouble paying for your medications, or do you think you might in the future? (Adult - for ages 18 years and over): No Does your family have trouble paying for medicine? (Household - for ages 0-17 years): Not on file Food Insecurity: No Food Insecurity (07/09/2023) Food Insecurity Do you need food for this week? (Adult - for ages 18 years and over): No Are you able to get enough food for your family? (Household - for ages 0-17 years): Not on file Does your family need food this week? (Household - for ages 0-17 years): Not on file Do you always have enough food for your family? (Household - for ages 0-17 years): Not on file Transportation Needs: No Transportation Needs (07/09/2023) Transportation Needs Do you have trouble getting a ride to medical visits or work? (Adult - for ages 18 years and over):Never True Does your family have a hard time getting a ride to doctors visits? (Household - for ages 0-17 years): Not on file Has lack of transportation kept you from medical appointments, meetings, work, or from getting things needed for daily living? Check all that apply. (Adult - for ages 18 years and over): Not on file Do you (or your family) have trouble finding or paying for a ride (transportation)? (Household - for ages 0-17 years): Not on file Social Connections: Socially Integrated (07/09/2023) Social Connections How often do you feel lonely or isolated from those around you? (Adult - for ages 18 years and over): Sometimes Housing Stability: Low Risk (07/09/2023) Housing Stability Do you currently live in a usp or have no steady place to sleep at night? (Adult - for ages 18 years and over): No Do you think you are at risk of becoming homeless? (Adult - for ages 18 years and over): No Does your family worry about paying for your home or becoming homeless? (Household - for ages 0-17 years): Not on file Are you homeless or worried that you might be in the future? (Adult - for ages 18 years and over): Not on file Are you (or your family) homeless or worried that you might be in the future? (Household - for ages0-17 years): Not on file O:Blood pressure 120/72, pulse 67, temperature 35.9 C (96.6 F), resp. rate 16, weight 91.6 kg (202 lb), not currently . GENERAL: alert, healthy, and no distress NECK: no pain with palpation at cervical spine or paraspinal muscles. No edema, no erythema, no ecchymosis. Pain with ROM at neck. A:Neck pain (Primary) - Baclofen 20 MG Oral Tablet; Take 1 Tablet by mouth in the morning and 1 Tablet before bedtime. Asneeded for muscle pain. - predniSONE 20 MG Oral Tablet (Deltasone); Take 2 Tablets by mouth in the morning for 5 days. Start prednisone. Baclofen as needed - may make drowsy. Any questions/problems, please call. If anything changes, worsens, develops new sx, please call [facility]. Follow Up: Return if symptoms worsen or fail to improve. Reema Genao PA-C documented in this encounter Nursing Notes * Alexandria Herr LPN - 07/16/2024 3:20 PM EST Neck & back pain x 1 1/2 weeks Lower back, left shoulder, & right neck documented in this encounter Plan of Treatment Upcoming Encounters Date Type Department Care Team (Latest Contact Info) Description 08/21/2024 9:00 AM EST Hospital Encounter ENDO [facility], Endoscopy Room [facility] [address] [phone] Nikunj Loo MD [address] [place] [address] 08/21/2024 9:00 AM EST - 08/21/2024 9:30 AM EST Surgery ENDO [facility], Endoscopy Room [facility] [address] [phone] Nikunj Loo MD [address] [place] [address] ESOPHAGOGASTRODUODENOSCOPY (EGD), FLEXIBLE, TRANSORAL, DIAGNOSTIC 09/10/2024 8:00 AM EST Office Visit [facility], [place] [address] [place] [phone] Yaz Louis DO [address] [place] [address] 09/10/2024 10:00 AM EST Nutrition Services Nutrition, [facility] [place] [address] [place] [address] Millie Mary, SHAYNA [address] [place] [address] 11/20/2024 10:00 AM EDT Office Visit Neurology [facility] [address] [facility] [place] [address] Sarah Velásquez MD [address] [facility] [place] [address] Scheduled Procedures Name Priority Associated Diagnoses Date/Ti [...] as of this encounter Visit Diagnoses Diagnosis Neck pain- Primary Cervicalgia Nausea Nausea alone Heartburn Dysphagia, unspecified type documented in this encounter Care Teams Managing Principal Relationship Specialty Start Date End Date Fawn Whitehead MD [address] [place] [address] [place] [address] PCP - General Family Medicine 11/12/19 documented as of this encounter
--- OUTSIDE RECORDS SUMMARY | 2024-09-03 08:10 | External Medical Summary | Summary of Care ---
Author Name Unknown Organization [facility] Address [address] [place] [address] Phone [phone] Care Team Providers Care Clerical Clerk Name Role Phone Fawn Whitehead MD Primary Care Provide r Reason for Referral * Evaluate & Treat - Unlimited Visits (Within 10 days (routine)) - Authorized Specialty Diagnoses / Procedures Referred By Juan F de dios Referred To Contact Physical Therapy / Physical Medicine And Rehab Diagnoses Migraine without aura and without status migrainosus, not intractable Mixed headache Neck pain Sarah Vanegas PA-C [address] [facility] [place] [phone] Referral ID Status Reason Start Date Expiration Date Visits Requested Visits Authorized [id number] Authorized Specialty Services Required 05/22/[phone] Question Answer Referral Priority Within 10 days (routine) Where should this appointment be scheduled? [facility] Comments Neck pain Reason for Visit * Reason Comments Return Neuro Encounter Details Date Type Department Care Team (Late st Contact Info) Description 05/22/2024 3:30 PM EDT Office Visit Neurology [employer] [address] [place] [id number] Sarah Vanegas PA-C [address] [facility] [place] [address] Migraine without aura and without status migrainosus, not intractable*; Mixed headache; Neck pain Allergies Active Allergy Reactions Criticality Noted Date Comments Amitriptyline Rash High 09/28/2009 Rash Amoxicillin Rash High 08/21/2002 rash Gabapentin Hives High 06/02/2009 Hives Nortriptyline Hcl Rash High 09/28/2009 Rash Tramadol Rash High 08/06/2014 hives documented as of this encounter (statuses as of 05/22/2024) Medications Medication Sig Dispensed Refills Start Date [...] 1 tab x 3 days 48 Tablet 4 Active Ajovy 225 MG/1.5ML Subcutaneous Solution Auto-injector (Shyp-vfr m) 1 injection monthly 1.5 mL 3 4 Active Riboflavin 400 MG Oral Tablet Take 1 Tablet by mouth in the morning. 30 Tablet 2 4 Active Magnesium Oxide 400 MG Oral Capsule Take 1 Capsule by mouth in the morning. 30 Capsule 2 4 Active Famotidine 20 MG Oral Tablet (Pepcid)Indicatio ns:Gastroesophage al reflux disease, unspecified whether esophagitis present Take 1 Tablet by mouth at bedtime. 30 Tablet 5 4 05/22/20 24 Discontinued Pantoprazole Sodium 40 MG Oral Tablet Delayed Release (Protonix)Indicat ions:Gastroesopha geal reflux disease, unspecified whether esophagitis present Take 1 Tablet by mouth in the morning. 30 minutes before the first meal of the day. Do not crush, split or chew the tablet. 30 Tablet 5 4 05/22/20 24 Discontinued Desogestrel-Ethin yl Estradiol 0.15-30 MG-MCG Oral Tablet Take 1 Tablet by mouth in the morning. 84 Tablet 3 4 05/22/20 24 Discontinued(Pat ient preference/disco ntinuation) Nystatin-Triamcin olone 950741-7.1 UNIT/GM-% External Cream (Mycolog)Indicati ons:Vaginal itching Apply topically to affected area 3 times a day. Apply to vulva 3 times a day 15 g 4 05/22/20 24 Discontinued predniSONE 20 MG Oral Tablet (Deltasone)Indica tions:Neck pain 2 tablets daily for 5 days then 1 tablet daily 15 Tablet 4 05/22/20 24 Discontinued(Pat ient preference/disco ntinuation) valACYclovir HCl 1 GM Oral Tablet (Valtrex)Indicati ons:Cold sore Take 2 Tablets by mouth in the morning and 2 Tablets before bedtime. For 1 day for cold sores. 4 Tablet 5 4 05/22/20 24 Discontinued(Pat ient preference/disco ntinuation) Emgality 120 MG/ML Subcutaneous Solution Auto-injector (Galcanezumab-gnl m) Inject 1 mL under the skin Every Month. 1 mL 2 4 05/22/20 24 Discontinued predniSONE 20 MG Oral Tablet (Deltasone)Indica tions:Plantar fasciitis 2 tablets daily for 5 days then 1 tablet daily 15 Tablet 4 05/22/20 24 Discontinued(Pat ient preference/disco ntinuation) documented as of this encounter (statuses as of 05/22/2024) Active Problems Patient Care Coordination No te [...] as of this encounter (statuses as of 05/22/2024) Resolved Problems Problem Noted Date Diagnosed Date [...] any family members Transfer of care at [id number] records obtained 01/14/15: antibody screen negative, O-, [...] her mother plans on being her labor college coach 08/25/2015 Shanice Sanchez RN 08/25/15 Problem Action Taken Date entered Entered by Date resolved Signs of labor Rviewed signs of labor Aware how to reach community association manager provider 08/31/2015 Shnaice Sanchez RN 08/31/15 Problem Action Taken Date [...] as of this encounter (statuses as of 05/22/2024) Immunizations Name Administration Dates Next Due HPV Vaccine, 4-Valent 08/16/2009,05/17/2009,04/2009 PPD 10/04/2023, 2,03/22/2011,03/07,11/08/2006 Pneumococcal Polysaccharide PPV23 (Pneumovax) 08/08/2011(Deferred: Patient Refused) Seasonal Influenza, Trivalen t, (IIV3), with Preserv, (Fluzone) 08/08/2011(Deferred: Patient Refused) TDAP (age 11 [...] No 07/09/2023 Does the household have a [facility] source of income? (Household - for ages [...] Sign Reading Time Taken Comments Blood Pressure 112/72 05/22/2024 3:40 PM EDT Pulse 75 05/22/2024 3:40 PM EDT Temperature 35.9 C (96.7 F) 05/22/2024 3:40 PM ED T Respiratory Rate 16 05/22/2024 3:40 PM EDT Oxygen Saturation 95% 05/22/2024 3:40 PM EDT Inhaled Oxygen Concentration - - Weight 86.2 kg (190 lb) 05/22/2024 3:40 PM EDT Height - - Body Mass Index 30.67 11/08/2023 3:02 PM EST documented in this encounter Progress Notes * Sarah Vanegas PA-C - 05/22/2024 3:37 PM EDT HISTORY & PHYSICAL EXAMINATION - NEUROLOGY Name: Clarissa Quintero Date: 05/22/2024 Time: 3:37 PM Referring Provider: Fawn Whitehead* Chief Complaint: Chief Complaint Patient presents with Return Neuro This is a 38 year old right handed woman returns today for follow up for migraine headaches. HPI & Source of HPI The patient was the historian, and she is reliable. Last seen by Dr Velásquez for chronic mixed headaches for which she was on Emgality. It had been very helpful. She was having some wearing off toward the end of the month and has been takingnaproxen. She is now having daily headaches which she is dosing with multiple motrin doses per day.She is also having neck pain which is likely from her lifting at her [employer] job. She does not feel Emgality is working any longer. She is keeping well hydrated but she is a single mom and is having moreissues with feeling tired. 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 She was given a steroid taper by her PCP but she is still taking multiple doses of motrin per day. She recently quit smoking, minimal EtOH use, previous drug use quit in 2014. Denies CP, SOB, abdominal pain, vision changes, new bowel or bladder issues, radicular pain from neck. I have reviewed the patient's medications and allergies, past medical, surgical, social and family history, updating these as appropriate. See Histories section of the electronic medical record for adisplay of this information. Patient Active Problem List Diagnosis Small L occipital venous angioma Tobacco use disorder Generalized anxiety disorder Depression Migraine without aura History of opioid abuse (HCC) Nonrheumatic mitral valve regurgitation Gastro-esophageal reflux disease without esophagitis Current moderate episode of major depressive disorder without prior episode (HCC) Family History Problem Relation Name Age of Onset Asthma Mother Mental Disorder Father Cirrhosis Father Asthma Sister #1, half sister Celiac disease Sister #2, half sister Diabetes Grandmother (Maternal) Heart Disorder Grandmother (Maternal) Cancer Grandmother (Maternal) Heart attack Grandfather (Maternal) Heart Disorder Grandmother (Paternal) Heart Disorder Grandfather (Paternal) Breast Cancer Aunt (Paternal) Medications: Are you taking your medications? yes Current Outpatient Medications Medication Sig Dispense Refill Buprenorphine HCl 8 MG Sublingual Tablet Sublingual Take 1 Tablet by mouth in the morning. Ibuprofen 600 MG Oral Tablet (Motrin) Take by mouth 1 Tablet every 6 hours as needed (pain). With food. 30 Tablet 0 Multi Vitamin Oral Tablet Take by mouth. Probiotic Acidophilus BioBeads Oral Capsule Take by mouth 1 Capsule three times a day with meals . Famotidine 20 MG Oral Tablet (Pepcid) Take 1 Tablet by mouth at bedtime. 30 Tablet 5 Pantoprazole Sodium 40 MG Oral Tablet Delayed Release (Protonix) Take 1 Tablet by mouth in the morning. 30 minutes before the first meal of the day. Do not crush, split or chew the tablet. 30 Tablet 5 Desogestrel-Ethinyl Estradiol 0.15-30 MG-MCG Oral Tablet Take 1 Tablet by mouth in the morning. 84 Tablet 3 Nystatin-Triamcinolone 151726-6.1 UNIT/GM-% External Cream (Mycolog) Apply topically to affected area 3 times a day. Apply to vulva 3 times a day 15 g 0 predniSONE 20 MG Oral Tablet (Deltasone) 2 tablets daily for 5 days then 1 tablet daily 15 Tablet 0 valACYclovir HCl 1 GM Oral Tablet (Valtrex) Take 2 Tablets by mouth in the morning and 2 Tablets before bedtime. For 1 day for cold sores. 4 Tablet 5 Emgality 120 MG/ML Subcutaneous Solution Auto-injector (Galcanezumab-[facility]) Inject 1 mL under the skin Every Month. 1 mL 2 predniSONE 20 MG Oral Tablet (Deltasone) 2 tablets daily for 5 days then 1 tablet daily 15 Tablet 0 No current facility-administered medications for this visit. Review of patient's allergies indicates: Allergen Reactions Amitriptyline Rash Rash Amoxicillin Rash rash Neurontin [Gabapentin] Hives Hives Nortriptyline Hcl Rash Rash Tramadol Rash hives Review of Systems: A total number of 10 systems were reviewed pertinent negative and positives not addressed in HPI are listed in the following review. Physical Exam: Constitutional: BP 112/72 | Pulse 75 | Temp 35.9 C (96.7 F) (Tympanic) | Resp 16 | Wt 86.2 kg (190 lb) | SpO2 95% | BMI 30.67 kg/m | BSA 2 m , appearance nourished, healthy, and normal Ears, Nose, Mouth and Throat: mucous membranes moist, no injection and skin normal, eyes normal Cardiovascular: normal S-1 and S-2 and regular rate and rhythm Respiratory: clear to auscultation (CTA) and no rales, ronchi or wheeze Musculoskeletal: no peripheral edema Skin: normal and intact Eyes: extraocular muscles intact (EOMI) and pupils equal, round and reactive to light (PERRL) NEUROLOGIC EXAMINATION: Mental status: Alert and interactive Oriented to full date and location Oriented to person Speech fluent with no evidence of aphasia Cranial Nerves Normal findings for Cranial Nerves II - XII Coordination: rapid alternating movements are intact: Bilateral and on [id number] Gait/Stance: Posture normal. Gait normal: with steady with steps, base, arm swing, and tandem gait. Motor: Negative for pronator drift of out stretched arms with eyes closed. Strength: Normal - 5/5 all extremities LABORATORY: Recent labs reviewed Review of prior Studies: No recent imaging available. Impression: Clarissa Quintero is a 38 year old woman with a history of migraine headaches. Her neurologic examination today reveals no new focal deficit. The history and examination are suggestive ofdiagnosis/problem list. Testing and Referrals ordered: none ICD-10-CM 1. Migraine without aura and without status migrainosus, not intractable G43.009 2. Mixed headache R51.9 3. Neck pain M54.2 Return in 6 months or sooner if needed Stop emgality Start Ajovy 225 mg/1.5 ml (1 injection) monthly Start steroid taper - and stop all NSAID use -now in a over use headache cycle Start riboflavin 400 mg and mg ox 400 mg daily May need to add a triptan but need to wait to see how she does with these changes- she will advise how she is doing PT ordered to help with neck pain Keep well hydrated and limit caffeine use PCP for medical management Call with questions concerns Medical Decision Making (determined by lowest of 2 of 3 elements): The medical decision making element of the number and complexity of problems addressed included at least 1 or more chronic illnesses with exacerbation, progression, or side effects of treatment (level 4). The medical decision making element of risk of complications, morbidity, and mortality of patient management is moderate (level 4) due to prescription drug management (moderate risk). The medical decision making element of the amount and complexity of data reviewed and analyzed included an independent interpretation of a test (level 4 at least). When 2 of 3 reach level 4, then this element is considered extensive (level 5). I personally spent a total of 30 minutes. This time was for a new office or established visit and was on the same calendar day. and This time was the total spent on the evaluation, interpretation, and documentation. Education / Consultation - Topics covered as I spent 20 minutes, which is greater than 50% of this visit, counseling the patient on: Diagnostic Results Prognosis Importance of compliance with chosen treatment options Risk factor reductions Patient and family education Sarah Velásquez was available for direct supervision. Copy of note sent to PCP and Referring Provider. Total time of visit: 30 minutes. Sarah Vanegas PA-C Neurology [address] [place] [address] 05/22/2024 3:37 PM documented in this encounter Nursing Notes * Joanna Kurtz MED ASSIST - 05/22/2024 3:39 PM EDT Chief Complaint Patient presents with Return Neuro documented in this encounter Plan of Treatment Upcoming Encounters Date Type Department Care Team (Latest Contact Info) Description 07/16/2024 8:[address] [facility] Hospital Encounter ENDO [facility], Endoscopy Room [facility] [address] [place] [phone] Clarissa Arellano DO [address] [place] [address] 07/16/2024 8:30 AM EST - 07/16/2024 9:00 AM EST Surgery ENDO [facility], Endoscopy Room [facility] [address] [place] [phone] Clarissa Arellano DO [address] [place] [address] ESOPHAGOGASTRODUODENOSCOPY (EGD), FLEXIBLE, TRANSORAL, DIAGNOSTIC 11/20/2024 10:00 AM EDT Office Visit Neurology [facility] [place] [employer] [address] [facility] [place] [address] Sarah Velásquez MD [address] [facility] [place] [address] Scheduled Procedures Name Priority Associated Diagnoses Date/Ti me ESOPHAGOGASTRODUODENOSCOPY ( EGD), FLEXIBLE, TRANSORAL, DIAGNOSTIC Nausea Heartburn Dysphagia, unspecified type 07/16/2024 8:30 AM EST Scheduled Referrals Name Type Priority Associated Diagnoses Orde r Schedule PHYSICAL THERAPY REFERRAL OP Referral Within 10 days (routine) Migraine without aura and without status migrainosus, not intractable Mixed headache Neck pain Ordered: 05/22/2024 Health Maintenance Due Date Last Done Comments [...] as of this encounter Visit Diagnoses Diagnosis Migraine without aura and without status migrainosus, not intractable- Primary Migraine without aura, without mention of intractable migraine without mention of status migrainosus Mixed headache Headache Neck pain Cervicalgia Nausea Nausea alone Heartburn Dysphagia, unspecified type documented in this encounter Care Teams Clerical Clerk Relationship Specialty Start Date End Date Fawn Whitehead MD [address] [place] [address] [place] [phone] PCP - General Family Medicine 11/12/19 documented as of this encounter"
--- OUTSIDE RECORDS SUMMARY | 2024-09-03 08:10 | External Medical Summary | Summary of Care ---
Author Name Unknown Organization [facility] Address [address] [place] [address] Phone [phone] Care Team Providers Care Society Reporter Name Role Phone Fawn Whitehead MD Primary Care Provide r Reason for Visit * Reason Onset Date Comments Precert In Process 05/23/2024 23 CHINTAN PANDYA Encounter Details Date Type Department Care Team (Late st Contact Info) Description 05/23/2024 Telephone Neurology [facility] [place] [address] [place] [address] Sarah Vanegas PA-C [address] [place] [address] Precert In Process ( CHINTAN [employer]) Allergies Active Allergy Reactions Criticality Noted Date Comments Amitriptyline Rash High 09/28/2009 Rash Amoxicillin Rash High 08/21/2002 rash Gabapentin Hives High 06/02/2009 Hives Nortriptyline Hcl Rash High 09/28/2009 Rash Tramadol Rash High 08/06/2014 hives documented as of this encounter (statuses as of 05/27/2024) Medications Medication Sig Dispensed Refills Start Date [...] as of this encounter (statuses as of 05/27/2024) Active Problems Patient Care Coordination No te [...] as of this encounter (statuses as of 05/27/2024) Resolved Problems Problem Noted Date Diagnosed Date [...] any family members Transfer of care at [id number] records obtained 01/14/15: antibody screen negative, O-, [...] her mother plans on being her labor gymnastics coach or instructor 08/25/2015 Shanice Sanchez RN 08/25/15 Problem Action Taken Date entered Entered by Date resolved Signs of labor Rviewed signs of labor Aware how to reach tong hooker provider 08/31/2015 Shanice Sanchez RN 08/31/15 Problem [...] Rhogam candidate Rhogam given 06/15/2015 Bronwyn Harmon, RN Tobacco smoking complicating 05/19/2015 09/24/2015 Overview: [...] as of this encounter (statuses as of 05/27/2024) Immunizations Name Administration Dates Next Due DTP [...] OSA - 05/26/2024 6:57 AM EDT Per [facility] -the preferred meds after Emgality are Aimovig and then nurtec. Can pt be switched - please advise - ty * Telephone Encounter - Jose Luis Vogel lumite injector - 05/23/2024 12:56 PM EDT New or re-auth: new Patient Clarissa Quintero needs a prior authorization for a medication through their [facility] Family insurance. Medication: Ajovy Formulation: 225mg/1.5mL prefilled pen Dosage: 1.5mL for 30ds ID: [id number] [id number] PCN:[id number] Target ship date is n/a. Thank you very much, Syl Vogel Bi Technical Lead, [facility] 05/23/2024 12:57 PM documented in this encounter Plan of Treatment Upcoming Encounters Date Type Department Care Team (Latest Contact Info) Description 07/16/2024 8:30 AM EST Hospital Encounter ENDO [facility], Endoscopy Room [facility] [address] [place] [phone] Clarissa Arellano DO [address] [place] [address] 07/16/2024 8:30 AM EST - 07/16/2024 9:00 AM EST Surgery ENDO [facility], Endoscopy Room [facility] [address] [place] [phone] Clarissa Arellano, [address] [place] [address] ESOPHAGOGASTRODUODENOSCOPY (EGD), FLEXIBLE, TRANSORAL, DIAGNOSTIC 11/20/2024 10:00 AM EDT Office Visit Neurology Marija [facility] [place] [address] [facility] [place] [address] Sarah Velásquez MD [address] [facility] [address] Scheduled Procedures Name Priority Associated Diagnoses Date/Ti [...] filedocumented as of this encounter Care Teams Society Reporter Relationship Specialty Start Date End Date Fawn Whitehead MD [address] [place] [address] [place] [id number] PCP - General Family Medicine 11/12/19 documented as of this encounter
--- OUTSIDE RECORDS SUMMARY | 2024-09-03 08:10 | External Medical Summary ---
Author Name Unknown Address Unknown Organization K01:LABORATORY C - [address] [facility] [address] Laboratory Report Ordering Provider Test Date Status PIPPA HENAO 07/04/2024 15:44:50 Final Observation Date Value Abnormality Reference (Units ) Status WBC, Total 07/04/2024 15:44:50 6.46 4.00-10.8 0 (K/uL) Final RBC 07/04/2024 15:44:50 4.21 3.85-5.15 (M/uL) Final Hemoglobin 07/04/2024 15:44:50 12.0 12.0-15.3 (g/dL) Final Anemia reflex testing trigge rs on a HGB < 12.0 for Females and HGB < 13.0 for Males in accordance with the WHO Anemia Guidelines
Anemia reflex testing triggers on a HGB < 12.0 for Females and HGB < 13.0 for Males in accordance with the WHO Anemia Guidelines HCT 07/04/2024 15:44:50 37.4 36.0-45.2 (%) Final MCV 07/04/2024 15:44:50 88.8 81.5-97.5 (fL) Final MCH 07/04/2024 15:44:50 28.5 27.0-34.0 (pg) Final MCHC 07/04/2024 15:44:50 32.1 32.0-36.0 (g/dL) Final RDW 07/04/2024 15:44:50 12.1 11.5-15.5 (%) Final Platelets 07/04/2024 15:44:50 219 140-400 (K /uL) Final MPV 07/04/2024 15:44:50 11.4 6.6-11.1 ( fL) Final Nucleated erythrocytes/100 leukocytes [Ratio] in Blood by Automated count 07/04/2024 15:44:50 0 <=0 (/100 WBCs) [facility] Performing Location [facility] - [address] [facility] [address]
--- OUTSIDE RECORDS SUMMARY | 2024-09-03 08:10 | External Medical Summary | Summary of Care ---
Author Name Unknown Organization [facility] Address [address] [place] [address] Phone [phone] Care Team Providers Care Licensing Worker Name Role Phone Fawn Whitehead MD Primary Care Provide r Reason for Visit * Reason Comments Physical-Exam Encounter Details Date Type Department Care Team (Late st Contact Info) Description 10/04/2023 1:40 PM EST Office Visit Family Medicine [address] [phone] Fawn Whitehead MD [address] [place], [place] [address] [address] PE (physical exam), annual*; PPD screening test; Gastroesophageal reflux disease, unspecified whether esophagitis present; History of opioid abuse (HCC); Current moderate episode of major depressive disorder without prior episode (HCC) Allergies Active Allergy Reactions Criticality Noted Date Comments Amitriptyline Rash High 09/28/2009 Rash Amoxicillin Rash High 08/21/2002 rash Gabapentin Hives High 06/02/2009 Hives Nortriptyline Hcl Rash High 09/28/2009 Rash Tramadol Rash High 08/06/2014 hives documented as of this encounter (statuses as of 08/18/2024) Medications Buprenorphine HCl 8 MG Sublingual Tablet [...] Additional Information Patient not taking.Reported on 07/16/2024 Citalopram Hydrobromide 20 MG Oral Tablet (CeleXA)Indicat ions:Generalize d anxiety disorder TAKE ONE TABLET BY MOUTH EVERY MORNING 90 Tablet 1 10/20/19 23 2023 Discontinued Famotidine 20 MG Oral Tablet (Pepcid) Take 1 Tablet by mouth at bedtime. 30 Tablet 5 11/22/19 23 2023 Discontinued(R efill) Albuterol Sulfate HFA 108 (90 Base) MCG/ACT Inhalation Aerosol SolutionIndicat ions:Chronic cough Inhale 2 Puffs by mouth every 6 hours as needed for Cough, Shortness of Breath or Wheezing. 18 g 2 03/27/202023 Discontinued ARIPiprazole 5 MG Oral Tablet (Abilify)Indica tions:Current moderate episode of major depressive disorder without prior episode (HCC),KOKI (generalized anxiety disorder) Take 1 Tablet by mouth in the morning. 30 Tablet 5 03/27/202023 Discontinued Emgality 120 MG/ML Subcutaneous Solution Auto-injector (Galcanezumab-g [facility]) Inject 1 mL under the skin every month. 1 mL 5 4 2:37 PM EDT 07/05/202023 Discontinued(R efill) Nicotine 14 MG/24HR Transdermal Patch 24 Hour (Nicoderm CQ)Indications: Tobacco use One 14 mg patch daily for 2 wks; then one 7 mg patch daily for 2 wks. Remove old patch daily Do not start before October 05, 2023. 14 Patch 2 10/05/19 24 2023 Discontinued Nicotine 7 MG/24HR Transdermal Patch 24 Hour (Nicoderm CQ)Indications: Tobacco use One 7 mg patch daily for 2 weeks; Remove old patch daily; and then stop. 14 Patch 1 08/24/20 23 2023 Discontinued Famotidine 20 MG Oral Tablet (Pepcid)Indicat ions:Gastroesop hageal reflux disease, unspecified whether esophagitis present Take 1 Tablet by mouth at bedtime. 30 Tablet 5 10/04/19 24 2023 Discontinued Pantoprazole Sodium 40 MG Oral Tablet Delayed Release (Protonix)Indic ations:Gastroes ophageal reflux disease, unspecified whether esophagitis present Take 1 Tablet by mouth in the morning. 30 minutes before the first meal of the day. Do not crush, split or chew the tablet. 30 Tablet 5 10/04/19 24 2023 Discontinued Hospital, Clinic, or Other Facility Administered Medication Ordered Dose Route Frequency Start Date End Date Status Albuterol Sulfate (Proventil) (2.5 MG/3ML) 0.083% inhalation solution 2.5 mgIndications:Tobacco use,Chronic cough 2.5 mg NEBULIZER ONCE PRN 03/27/2023 03/26/2024 Ended documented as of this encounter (statuses as of 08/18/2024) Active Problems Patient Care Coordination No te [...] as of this encounter (statuses as of 08/18/2024) Resolved Problems Problem Noted Date Diagnosed Date [...] any family members Transfer of care at [id number] records obtained 01/14/15: antibody screen negative, O-, [...] her mother plans on being her labor defensive line coach 08/25/2015 Shanice Sanchez RN 08/25/15 Problem Action Taken Date entered Entered by Date resolved Signs of labor Rviewed signs of labor Aware how to reach manager of corporate communications provider 08/31/2015 Shanice Sanchez RN 08/31/15 Problem [...] as of this encounter (statuses as of 08/18/2024) Immunizations Name Administration Dates Next Due DTP [...] Former Cigarettes 1 15 Smokeless Tobacco: Never Tobacco Cessation:Counseling Given: Not Answered Comments:17 Alcohol Use Standard Drinks/Week Comments Yes [...] file Not on file Not on file 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 Not on file Not on file Not on file documented as of this encounter Last Filed Vital Signs Vital Sign Reading Time Taken Comments Blood Pressure 106/62 10/04/2023 1:30 PM EST Pulse 96 10/04/2023 1:30 PM EST Temperature 36.3 C (97.3 F) 10/04/2023 1:30 PM ES T Respiratory Rate - - Oxygen Saturation 96% 10/04/2023 1:30 PM EST Inhaled Oxygen Concentration - - Weight 79.8 kg (176 lb) 10/04/2023 1:30 PM EST Height 167.6 cm (5' 6") 10/04/2023 1:30 PM EST Body Mass Index 28.41 10/04/2023 1:30 PM EST documented in this encounter Progress Notes * Fawn Whitehead MD - 10/04/2023 1:26 PM EST Subjective: HPI: Clarissa Quintero is a 37 year old female with hx of Opioid abuse (Sober since 2014), migraine, anxiety, depression, GERD seen for 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 --- never had positive TB skin test before --- denied any recent exposure --- denied any chills, cough or night sweats No hx of asthma - but has seasonal allergy - quit smoking 3 months ago ---- doing well UTD on pap smear Not interested in flu shot Patient Active Problem List Diagnosis Code Small L occipital venous angioma D18.00 Tobacco use disorder F17.200 Generalized anxiety disorder F41.1 Depression F32.A Migraine without aura G43.009 History of opioid abuse (HCC) F11.11 Nonrheumatic mitral valve regurgitation I34.0 Gastro-esophageal reflux disease without esophagitis K21.9 Current moderate episode of major depressive disorder without prior episode (HCC) F32.1 Current Outpatient Medications Medication Sig Dispense Refill Buprenorphine HCl 8 MG Sublingual Tablet Sublingual Take 1 Tablet by mouth in the morning. Probiotic Acidophilus BioBeads Oral Capsule Take by mouth 1 Capsule three times a day with meals . Ibuprofen 600 MG Oral Tablet (Motrin) Take by mouth 1 Tablet every 6 hours as needed (pain). With food. 30 Tablet 0 Emgality 120 MG/ML Subcutaneous Solution Auto-injector (Galcanezumab-gn) Inject 1 mL under the skin every month. 1 mL 5 Famotidine 20 MG Oral Tablet (Pepcid) Take 1 Tablet by mouth at bedtime. 30 Tablet 5 Pantoprazole Sodium 40 MG Oral Tablet Delayed Release (Protonix) Take 1 Tablet by mouth in the morning. 30 minutes before the first meal of the day. Do not crush, split or chew the tablet. 30 Tablet 5 Current Facility-Administered Medications Medication Dose Route Frequency Provider Last Rate Last Admin Albuterol Sulfate (Proventil) (2.5 MG/3ML) 0.083% inhalation solution 2.5 mg 2.5 mg Nebulizer Once PRN Martinez Hutchins DO 2.5 mg at 04/16/23 1500 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 Migraine without aura 08/06/2014 Other specified anemias Papanicolaou smear of cervix with atypical squamous cells of undetermined significance (ASC-US) 12/17/2008 Reflux esophagitis Small L occipital venous angioma 08/13/2009 Tobacco use disorder Vaginitis Past Surgical History: Procedure Laterality Date COLPOSCOPY OF CERVIX W/BIOPSY 01/20/2009 CT C SPINE WO CONTRAST 09/18/2012 normal cervical spine, enlarged right anterior triangle lymph node EGD, FLEXIBLE, DIAGNOSTIC 01/06/2022 normal bx / ESOPHAGOGASTRODUODENOSCOPY (EGD), FLEXIBLE, TRANSORAL, DIAGNOSTIC performed by Genny Hoover MD at ENDOSCOPY [facility] EYELID SURGERY PROCEDURE NEC age 19 left eye LAPAROSCOPY;RMV ADNEXAL STRUCT Bilateral 03/16/2022 LAPAROSCOPIC OOPHORECTOMY AND OR SALPINGECTOMY performed by Bhaskar Wright MD at OR [facility] REMOVE TONSILS & ADENOIDS, UNDER 13 age 3 US ABDOMEN LIMITED 12/11/2007 normal US EXTREMITY, NON-VASCULAR COMPLETE 06/29/2011 organized hematoma left thigh Review of patient's allergies indicates: Allergen Reactions Amitriptyline Rash Rash Amoxicillin Rash rash Neurontin [Gabapentin] Hives Hives Nortriptyline Hcl Rash Rash Tramadol Rash hives Family History Problem Relation Age of Onset Asthma Mother Mental Disorder Father Cirrhosis Father Asthma Sister Celiac disease Sister Diabetes Grandmother (Maternal) Heart Disorder Grandmother (Maternal) Cancer Grandmother (Maternal) Heart attack Grandfather (Maternal) Heart Disorder Grandmother (Paternal) Heart Disorder Grandfather (Paternal) Breast Cancer Aunt (Paternal) Social History Tobacco Use Smoking status: Former Packs/day: 1.00 Years: 15.00 Additional pack years: 0.00 Total pack years: 15.00 Types: Cigarettes Smokeless tobacco: Never Tobacco comments: 17 Substance Use Topics Alcohol use: Yes Comment: occassional- less than 1 x per week Vaping/E-Cigarette Use Vaping/E-Cigarette Use Never User Vaping/E-Cigarette Substances Vaping/E-Cigarette Devices ROS: -Per HPI OBJECTIVE: BP 106/62 | Pulse 96 | Temp 36.3 C (97.3 F) (Tympanic) | Ht 1.676 m (5' 6") | Wt 79.8 kg (176 lb) | SpO2 96% | BMI 28.41 kg/m | BSA 1.93 m PHYSICAL EXAM: Vitals are reviewed General:. NAD, well developed HEENT:. Normal Conjunctiva, EOMI Cardiac:. Normal S1, S2, no murmur Lungs:. CTA, no wheezing or crackles Abd:. soft, ND, NT MSK:. Normal gait Psych:. AAOx3, normal affect ASSESSMENT/PLAN: Will complete the form once pt complete the PPD skin test PE (physical exam), annual (Primary) - HEMOGLOBIN A1C - LIPID PANEL WITHOUT DIRECT LDL PPD screening test - PPD; Future; Expected date: 10/04/2023 - PPD Gastroesophageal reflux disease, unspecified whether esophagitis present - Famotidine 20 MG Oral Tablet (Pepcid); Take 1 Tablet by mouth at bedtime. - Pantoprazole Sodium 40 MG Oral Tablet Delayed Release (Protonix); Take 1 Tablet by mouth in the morning. 30 minutes before the first meal of the day. Do not crush, split or chew the tablet. History of opioid abuse (HCC) - sober Current moderate episode of major depressive disorder without prior episode (HCC) - stable Addendum on 08/18/24 - pt's Quantiferon Gold is negative - pt is free from all communicable disease Fawn Whitehead MD [place] [phone] documented in this encounter Nursing Notes * Chio Ramsey LPN - 10/04/2023 1:29 PM EST Physical exam for new job. documented in this encounter Plan of Treatment Upcoming Encounters Date Type Department Care Team (Latest Contact Info) Description 08/21/2024 9:00 AM EST Hospital Encounter ENDO [facility], Endoscopy Room [facility] [address] [place] [phone] Nikunj Loo MD [address] [place] [address] 08/21/2024 9:00 AM EST - 08/21/2024 9:30 AM EST Surgery END[facility] [address] [facility] [place] [phone] Nikunj Loo MD [address] [place], [place] [address] ESOPHAGOGASTRODUODENOSCOPY (EGD), FLEXIBLE, TRANSORAL, DIAGNOSTIC 09/10/2024 8:00 AM EST [facility] [place] [phone] Yaz Louis DO [address] [facility] [address] 09/10/2024 10:00 AM EST Nutrition Services Nutrition, [facility] [address] [place] [address] Millie Mary RDN [address] [place] [address] 11/20/2024 10:00 AM EDT Office Visit Neurology [facility] [address] [place] [address] Sarah Velásquez MD [address] [place] [address] Scheduled Procedures Name Priority Associated Diagnoses Date/Ti [...] Procedure Name Priority Date/Time Associated Diagnosis Comments HEMOGLOBIN A1C Routine 10/05/2023 2:57 PM EST PE (physical exam), annual LIPID PANEL WITHOUT DIRECT LDL Routine 10/05/2023 2:57 PM EST PE (physical exam), annual documented in this encounter Results * LIPID PANEL WITHOUT DIRECT LDL (10/05/2023 2:57 PM EST) Triglycerides 159 <=174 mg/dL 10/06/2023 3:05 AM EST [facility] Comment: Triglyceride Reference Ranges (mg/dL): <150 Acceptable 150-174 Borderline high 175-499 High >=500 Very high Cholesterol 183 <200 mg/dL 10/06/2023 3:05 AM EST [facility] Comment: Total Cholesterol Reference Ranges (mg/dL): <200 Desirable 200-239 Borderline high >=240 High HDL Cholesterol 56 >49 mg/dL 3:05 AM EST [facility] Comment: HDL Cholesterol Reference Ranges (mg/dL): >=60 High (Desirable) <50 Low (Undesirable) For Females <40 Low (Undesirable) For Males Non-HDL Cholesterol 127 <=159 mg/dL 10/06/2023 3:05 AM EST [facility] Comment: Non-HDL Cholesterol Reference Range (mg/dL): <100 Target level for high risk ASCVD patient <130 Optimal for general population 130-159 Near optimal for general population 160-189 Borderline High 190-219 High >=220 Very High LDL Cholesterol 95 <=129 mg/dL 10/06/2023 3:05 AM EST LABORATORY [facility] Comment: LDL Cholesterol Reference Ranges (mg/dL): <70 Target level for high risk ASCVD patient <100 Optimal for general population 100-129 Near optimal for general population 130-159 Borderline high 160-189 High >=190 Very high Blood Venous blood specimen / Unknown Venipuncture / Unknown 10/05/2023 2:57 PM EST 10/05/2023 2:57 PM EST Fawn Whitehead MD LAB BLOOD ORDERABLES Final Result Performing Organization Address [facility] de Phone Number LABORATORY [place] [address] [place] [address] * HEMOGLOBIN A1C (10/05/2023 2:57 PM EST) Pathologist [facility] Hemoglobin A1C 5.2 4.0 - 5.6 % 10/06/2023 3:53 AM EST LABORATORY [facility] Comment:The use of HbA1c to monitor glycemic status is based on normal hemoglobin and HbA composition. This test should not be used in patients with abnormal hemoglobin that affects the half life of the red blood cell or the in vivo glycation rates. Estimated Average Glucose 103 <126 mg/dL 10/06/2023 3:53 AM EST LABORATORY [facility] Blood Venous blood specimen / Unknown Venipuncture / Unknown 10/05/2023 2:57 PM EST 10/05/2023 2:57 PM EST Fawn Whitehead MD LAB BLOOD ORDERABLES Final Result Performing Organization Address [facility] de Phone Number LABORATORY [address] [address] documented in this encounter Visit Diagnoses Diagnosis PE (physical exam), annual- Primary Routine general medical examination at a health care facility PPD screening test Screening examination for pulmonary tuberculosis Gastroesophageal reflux disease, unspecified whether esophagitis present History of opioid abuse (HCC) Opioid abuse, in remission Current moderate episode of major depressive disorder without prior episode (HCC) Nausea Nausea alone Heartburn Dysphagia, unspecified type documented in this encounter Care Teams Licensing Worker Relationship Specialty Start Date End Date Fawn Whitehead MD [address] [place] [address] [place] [phone] PCP - General Family Medicine 11/12/19 documented as of this encounter
--- OUTSIDE RECORDS SUMMARY | 2024-09-03 08:10 | External Medical Summary ---
Author Name Unknown Address Unknown Organization K01:LAB[facility]ATORY [facility] - [address] [place] [address] Laboratory Report Ordering Provider Test Date Status TEODORO STAFFORD 07/04/2024 15:44:50 Final Observation Date Value Abnormality Reference (Units ) Status MYCODE SPECIMEN-SST 07/04/2024 15:44:50 Freezing of extracted DNA, whole blood and/or serum. Final Performing Location LAB[facility]ATORY [facility] - [address] [facility] [address]
--- OUTSIDE RECORDS SUMMARY | 2024-09-03 08:10 | External Medical Summary | Summary of Care ---
Author Name Unknown Organization [facility] Address [address] [place] [address] Phone [phone] Care Team Providers Care Watershed Engineer Name Role Phone Fawn Whitehead MD Primary Care Provide r Reason for Visit * Reason Onset Date Comments Precert In Process 05/23/2024 23 [facility] QUESTION [facility] Ajovy Encounter Details Date Type Department Care Team (Late st Contact Info) Description 05/23/2024 Telephone [facility]rology [facility] [address] [place] [address] Sarah Vanegas PA-C [address] [place] [address] Precert In Process (23 [facility]... Allergies Active Allergy Reactions Criticality Noted Date Comments Amitriptyline Rash High 09/28/2009 Rash Amoxicillin Rash High 08/21/2002 rash Gabapentin Hives High 06/02/2009 Hives Nortriptyline Hcl Rash High 09/28/2009 Rash Tramadol Rash High 08/06/2014 hives documented as of this encounter (statuses as of 05/26/2024) Medications Medication Sig Dispensed Refills Start Date [...] as of this encounter (statuses as of 05/26/2024) Active Problems Patient Care Coordination No te [...] as of this encounter (statuses as of 05/26/2024) Resolved Problems Problem Noted Date Diagnosed Date [...] any family members Transfer of care at [id number] records obtained 01/14/15: antibody screen negative, O-, [...] her mother plans on being her labor flag football coach 08/25/2015 Shanice Sanchez RN 08/25/15 Problem Action Taken Date entered Entered by Date resolved Signs of labor Rviewed signs of labor Aware how to reach vice president of communications provider 08/31/2015 Shanice Sanchez RN 08/31/15 [...] as of this encounter (statuses as of 05/26/2024) Immunizations Name Administration Dates Next Due HPV Vaccine, 4-Valent 08/16/2009,05/17/2009,06/04/2009 PPD 10/04/2023, 2,03/22/2011,03/07,11/08/2006 Pneumococcal Polysaccharide PPV23 (Pneumovax) [...] 18 years and over) Not on file 3 Are you (or your family) schuyler eless [...] OSA - 05/26/2024 6:57 AM EDT Per [facility] -the preferred meds after Emgality are Aimovig and then nurtec. Can pt be switched - please advise - ty * Telephone Encounter - Jose Luis Vogel, chemical strength tester - 05/23/2024 12:56 PM EDT New or re-auth: new Patient Clarissa Quintero needs a prior authorization for a medication through their [facility] Family insurance. Medication: Ajovy Formulation: 225mg/1.5mL prefilled pen Dosage: 1.5mL for 30ds ID: [id number] BIN:[id number] PCN:[id number] Target ship date is n/a. Thank you very much, Syl Vogel Petroleum Refining Equipment Operator, [facility] 05/23/2024 12:57 PM documented in this encounter Plan of Treatment Upcoming Encounters Date Type Department Care Team (Latest Contact Info) Description 07/16/2024 8:30 AM EST Hospital Encounter ENDO [facility], Endoscopy Room [facility] [address] [place] [phone] Clarissa Arellano DO [address] [place] [address] 07/16/2024 8:30 AM EST - 07/16/2024 9:00 AM EST Surgery ENDO [facility], Endoscopy Room [facility] [address] [place] [phone] Clarissa Arellano DO [address] [place] [address] ESOPHAGOGASTRODUODENOSCOPY (EGD), FLEXIBLE, TRANSORAL, DIAGNOSTIC 11/20/2024 10:00 AM EDT Office Visit Neurology [facility] [place] [address] [facility] [place] [address] Sarah Velásquez MD [address] [place] [address] Scheduled Procedures Name Priority Associated Diagnoses Date/Ti [...] filedocumented as of this encounter Care Teams Watershed Engineer Relationship Specialty Start Date End Date Fawn Whitehead MD [address] [place] [address] [place] [id number] PCP - General Family Medicine 11/12/19 documented as of this encounter
--- OUTSIDE RECORDS SUMMARY | 2024-09-03 08:10 | External Medical Summary | Summary of Care ---
Author Name Unknown Organization [facility] Address [address] [place] [address] Phone [phone] Care Team Providers Care Pulverizer Operator Name Role Phone Fawn Whitehead MD Primary Care Provide r Reason for Referral * Evaluate & Treat - Unlimited Visits (Within 10 days (routine)) - Authorized Specialty Diagnoses / Procedures Referred By Juan F de dios Referred To Contact Dietitian / Nutrition Services Diagnoses Weight gain Janes Armando MD [address] [place] [address] [place] [id number] Referral ID Status Reason Start Date Expiration Date Visits Requested Visits Authorized [id number] Authorized Specialty Services Required 07/04/2024 999 999 Question Answer Referral Priority Within 10 days (routine) Where should this appointment be scheduled? [facility] What condition is the patient being seen for? Weight Reduction/Excessive Weight Gain Is the patient expecting to obtain weight loss medication or discuss surgical options? No Comments Medical Nutrition Therapy * Evaluate & Treat - Unlimited Visits (Within 10 days (routine)) - Authorized Specialty Diagnoses / Procedures Referred By Juan F de dios Referred To Contact Sleep Medicine / Sleep Disorders Diagnoses Fatigue, unspecified type Snoring Janes Armando MD [address] [place] [address] [place] [id number] Referral ID Status Reason Start Date Expiration Date Visits Requested Visits Authorized [id number] Authorized Specialty Services Required 07/04/2024 2 2 Question Answer Referral Priority Within 10 days (routine) Where should this appointment be scheduled? [facility] RE[facility] Sleep Apnea Testing and Management Does the patient snore and/or gasp at night or has been told they stop breathing at night? Yes, document patient's symptoms in progress note Reason for Visit * Reason Comments Re-Check Encounter Details Date Type Department Care Team (Late st Contact Info) Description 07/04/2024 3:40 PM EDT Office Visit [address] [place] [phone] Janes Armando MD [address] [place] [address] [place] [id number] Weight gain*; Fatigue, unspecified type; Snoring; Generalized anxiety disorder Allergies Active Allergy Reactions Criticality Noted Date [...] Active Ajovy 225 MG/1.5ML Subcutaneous Solution Auto-injector (FremanezVessix Vascular-vfr m) Inject 1 pen under the skin Every [...] Oral Tablet Extended Release 24 Hour (Wellbutrin XL)Indications:We ight gain,Generalized anxiety disorder Take 1 Tablet by mouth in the morning. 90 Tablet 1 07/04/2024 Active predniSONE 10 MG Oral Tablet (Deltasone) 6 tab x 3 days, 4 tab x 3 days, 3 tab x 3 days, 2 tab x 3 days 1 tab x 3 days 48 Tablet 05/22/2024 07/04/20 24 Discontinued documented as of this encounter (statuses [...] any family members Transfer of care at [id number] records obtained 01/14/15: antibody screen negative, O-, [...] her mother plans on being her labor hitting coach 08/25/2015 Shanice Sanchez RN 08/25/15 Problem Action Taken Date entered Entered by Date resolved Signs of labor Rviewed signs of labor Aware how to reach production dispatcher provider 08/31/2015 Shanice Sanchez RN 08/31/15 Problem [...] Administration Dates Next Due HPV Vaccine, 4-Valent 08/16/2009,05/17/2009,06/0 04/2009 PPD 10/04/2023, 2,03/22/2011,03/07,11/08/2006 Pneumococcal Polysaccharide PPV23 (Pneumovax) [...] Sign Reading Time Taken Comments Blood Pressure 122/70 07/04/2024 3:16 PM EDT Pulse 73 07/04/2024 3:16 PM EDT Temperature 36.4 C (97.6 F) 07/04/2024 3:16 PM ED T Respiratory Rate - - Oxygen Saturation 98% 07/04/2024 3:16 PM EDT Inhaled Oxygen Concentration - - Weight 91.6 kg (202 lb) 07/04/2024 3:16 PM EDT Height 167.6 cm (5' 6") 07/04/2024 3:16 PM EDT Body Mass Index 32.6 07/04/2024 3:16 PM EDT documented in this encounter Progress Notes * Janes Armando MD - 07/04/2024 3:23 PM EDT Subjective: Clarissa Quintero is a 38 year old female. Chief Complaint Patient presents with Re-Check HPI: Brief Clinical History Ms. Quintero is a 38 year old female last seen in Family Medicine [facility] on 10/04/2023 by Fawn Whitehead She has a h/o the following chronic conditions indicated on the problem list: Chronic Conditions None Quit smoking 1 year ago. Has been gaining weight more rapidly over the last 6 months to a year since she quit smoking. She is very active at work. She tends to snack a lot at work and she also has been drinking [place], which she craves. Is worried about her rapid weight gain despite being so active. She is interested in seeing map editor and in weight loss medications. Is very tired all the time. Wants to sleep as soon as she gets home from work. She does snore pretty badly at night. Feels groggy in the morning and not well rested. Has been told she quit breathing during an endoscopy one time. She feels she can fall asleep as soon as she sits down. Has had some ongoing heartburn. Is scheduled for EGD. Results for orders placed or performed in visit on 11/08/23 CHLAMYDIA TRACHOMATIS AND NEISSERIA GONORRHOEAE, AMPLIFIED PROBE Result Value Ref Range Chlamydia Trachomatis Result Negative Negative Neisseria Gonorrhoeae Result Negative Negative VAGINOSIS PANEL, PCR Result Value Ref Range Alexa Glabrata PCR Result Negative Negative [place] Albicans PCR Result Negative Negative Trichomonas Vaginalis PCR Result Negative Negative Gardnerella Vaginalis PCR Result Negative Negative *Note: Due to a large number of results and/or encounters for the requested time period, some results have not been displayed. A complete set of results can be found in Results Review. PHM: Patient Active Problem List Diagnosis Small L occipital venous angioma Tobacco use disorder Generalized anxiety disorder Depression Migraine without aura History of opioid abuse (HCC) Nonrheumatic mitral valve regurgitation Gastro-esophageal reflux disease without esophagitis Current moderate episode of major depressive disorder without prior episode (HCC) Current Outpatient Medications Medication Sig Dispense Refill [...] mouth in the morning. 90 Tablet 1 Ibuprofen 600 MG Oral Tablet (Motrin) Take by mouth 1 Tablet every 6 hours as needed (pain). With food. (Patient not taking: Reported on 07/04/2024) 30 Tablet 0 Ajovy 225 MG/1.5ML Subcutaneous Solution Auto-injector (Fremanezumab-vfrm) Inject 1 pen under the skin Every Month. (Patient not taking: Reported on 07/04/2024) 1.5 mL 3 No current facility-administered medications [...] performed by Genny Hoover MD at ENDOSCOPY [facility] EYELID SURGERY PROCEDURE NEC age 19 left eye LAPAROSCOPY;RMV ADNEXAL STRUCT Bilateral 03/16/2022 LAPAROSCOPIC OOPHORECTOMY AND OR SALPINGECTOMY performed by Bhaskar Wright MD at OR 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 Employer: [employer] Comment: [employer] [facility] Tobacco Use Smoking status: Former Current packs/day: [...] Social History Narrative Not on file Social Determinants of Health Financial Resource Strain: Low Risk (07/09/2023) Financial [...] - for ages0-17 years): Not on file Review of patient's allergies indicates: Allergen Reactions Amitriptyline Rash Rash Amoxicillin Rash rash Neurontin [Gabapentin] Hives Hives Nortriptyline Hcl Rash Rash Tramadol Rash hives Objective: BP 122/70 | Pulse 73 | Temp 36.4 C (97.6 F) (Tympanic) | Ht 1.676 m (5' 6") | Wt 91.6 kg (202 lb) | SpO2 98% | BMI 32.60 kg/m | BSA 2.07 m Physical Exam: General: alert, healthy, no distress, well nourished, and well developed Head: Normocephalic, No masses, lesions, tenderness or abnormalities Eye Exam: PERRLA, extraocular movements intact, conjunctiva are pink and non- injected, sclera clear Ears: External ears normal, Canals clear, TM's Normal Nose: no mucosal erythema, no mucosal edema, no purulent discharge Oropharynx: no exudate, no erythema, lips, buccal mucosa, and tongue normal, and mucous membranes are moist Neck: supple, no adenopathy Heart: regular rate & rhythm, no murmur, and no gallops Lungs: chest symmetric with normal AP diameter, no chest deformities noted, no chest wall tenderness, lungs clear to auscultation Extremities: no edema Neuro Exam: alert & oriented x 3 with fluent speech, no focal motor/sensory deficits, gait normal Extensive ROS Constitutional (f/c/wt/vision/hearing): Negative Resp (cough/sob/torres): Negative CV (cp/palp/fluttering/diaphoresis/torres/pnd):Negative GI (n/v/d/hrtburn): see above hpi Endo (hair/cold or heat intol/ 3 p's): Negative Neuro (shaking/weak/fatigu/parasthesi/): +fatigue Skin (rash/easy bruis/xerosis): Negative Psy (si/hi/halluc/): h/o anxiety (nocturia/hesit/drib/sexual review): Negative Lymph (swollen glands/b sx's/: Negative ASSESSMENT: Weight gain (Primary) - NUTRITION-CLINICAL DIETITIAN REFERRAL OP - buPROPion HCl ER (XL) 150 MG Oral Tablet Extended Release 24 Hour (Wellbutrin XL); Take 1 Tablet by mouth in the morning. - HEMOGLOBIN A1C; Future; Expected date: 07/04/2024 Fatigue, unspecified type - CBC WITH WBC DIFFERENTIAL AND ANEMIA REFLEX WORKUP; Future; Expected date: 07/04/2024 - TSH WITH FREE T4 IF INDICATED; Future; Expected date: 07/04/2024 - COMPREHENSIVE METABOLIC PANEL; Future; Expected date: 07/04/2024 - SLEEP MEDICINE REFERRAL OP Snoring - SLEEP MEDICINE REFERRAL OP Generalized anxiety disorder - buPROPion HCl ER (XL) 150 MG Oral Tablet Extended Release 24 Hour (Wellbutrin XL); Take 1 Tablet by mouth in the morning. Follow Up: Return if symptoms worsen or fail to improve. PLAN: Continue present medication(s): Begin medication(s): Wellbutrin for appetite control/weight loss. Also has h/o anxiety and depression and may be helpful for that as well. Referral(s) to: sleep medicine due to snoring, fatigue, and daytime sleepiness. Schedule labs: CBC w/diff, TSH, CMP, and A1C. Patient education: Discussed weight loss and medications. Does not currently meet criteria for GLP-1. Agreeable to map editor and Wellbutrin. Check labs as above to r/o underlying condition and r/o JULIANA due to fatigue, snoring, and daytime sleepiness. Follow up: as needed. Janes Armando MD documented in this encounter Nursing Notes * Chio Ramsey LPN - 07/04/2024 3:16 PM EDT Discuss weight management options Stopped smoking almost 1 year ago including vaping Has started drinking [place]nan 6 months ago & cannot stop documented in this encounter Plan of Treatment Upcoming Encounters Date Type Department Care Team (Latest Contact Info) Description 07/16/2024 8:30 AM EST Hospital Encounter ENDO [facility], Endoscopy Room [facility] [address] [place] [phone] Clarissa Arellano, DO [address] [place] [address] 07/16/2024 8:30 AM EST - 07/16/2024 9:00 AM EST Surgery ENDO [facility], Endoscopy Room [facility] [address] [place] [phone] Clarissa Arellano, [address] [place] [address] ESOPHAGOGASTRODUODENOSCOPY (EGD), FLEXIBLE, TRANSORAL, DIAGNOSTIC 09/10/2024 8:00 AM EST Office Visit Sleep Disorders Ctr [facility] [address] [place] [phone] Yaz Louis, DO [address] [place] [address] 09/10/2024 10:00 AM EST Nutrition Services Nutrition, [facility] [address] [place] [address] Millie Mary, SHAYNA [address] [place] [address] 11/20/2024 10:00 AM EDT Office Visit Neurology [facility] [place] [address] [facility] [place] [address] Sarah Velásquez MD [address] [facility] [place] [address] Pending Results Name Type Priority Associated Diagnoses Date /Time CBC WITH WBC DIFFERENTIAL AND ANEMIA REFLEX WORKUP Lab Routine Fatigue, unspecified type 07/04/2024 3:44 PM EDT TSH WITH FREE T4 IF INDICATED Lab Routine Fatigue, unspecified type 07/04/2024 3:44 PM EDT COMPREHENSIVE METABOLIC PANEL Lab Routine Fatigue, unspecified type 07/04/2024 3:44 PM EDT HEMOGLOBIN A1C Lab Routine Weight gain 07/04/2024 3:44 PM EDT Scheduled Orders Name Type Priority Associated Diagnoses Orde r Schedule CBC WITH WBC DIFFERENTIAL AND ANEMIA REFLEX WORKUP Lab Routine Fatigue, unspecified type Expected: 07/04/2024 (Approximate), Expires: 07/04/2025 TSH WITH FREE T4 IF INDICATED Lab Routine Fatigue, unspecified type Expected: 07/04/2024 (Approximate), Expires: 07/04/2025 COMPREHENSIVE METABOLIC PANEL Lab Routine Fatigue, unspecified type Expected: 07/04/2024 (Approximate), Expires: 07/04/2025 HEMOGLOBIN A1C Lab Routine Weight gain Expected: 07/04/2024 (Approximate), Expires: 07/04/2025 Scheduled Procedures Name Priority Associated Diagnoses Date/Ti me ESOPHAGOGASTRODUODENOSCOPY ( EGD), FLEXIBLE, TRANSORAL, DIAGNOSTIC Nausea Heartburn Dysphagia, unspecified type 07/16/2024 8:30 AM EST Scheduled Referrals Name Type Priority Associated Diagnoses Orde r Schedule SLEEP MEDICINE REFERRAL OP Referral Within 10 days (routine) Fatigue, unspecified type Snoring Ordered: 07/04/2024 NUTRITION-CLINICAL DIETITIAN REFERRAL OP Referral Within 10 days (routine) Weight gain Ordered: 07/04/2024 Health Maintenance Due Date Last Done Comments [...] as of this encounter Visit Diagnoses Diagnosis Weight gain- Primary Abnormal weight gain Fatigue, unspecified type Snoring Other dyspnea and respiratory abnormality Generalized anxiety disorder Nausea Nausea alone Heartburn Dysphagia, unspecified type documented in this encounter Care Teams Pulverizer Operator Relationship Specialty Start Date End Date Fawn Whitehead MD [address] [place] [address] [place] [phone] PCP - General Family Medicine 11/12/19 documented as of this encounter
--- OUTSIDE RECORDS SUMMARY | 2024-09-03 08:11 | External Medical Summary | Summary of Care ---
Author Name Unknown Organization [facility] Address [address] [place] [address] Phone [phone] Care Team Providers Care Information Systems Auditor Name Role Phone Fawn Whitehead MD Primary Care Provide r Reason for Visit * Reason Onset Date Comments Medication Refill 03/24/2024 Encounter Details Date Type Department Care Team (Late st Contact Info) Description 03/24/2024 Telephone Neurology [facility] [address] [place] [address] Sarah Velásquez MD [address] [place] [address] Medication Refill Allergies Active Allergy Reactions Criticality Noted Date Comments Amitriptyline Rash High 09/28/2009 Rash Amoxicillin Rash High 08/21/2002 rash Gabapentin Hives High 06/02/2009 Hives Nortriptyline Hcl Rash High 09/28/2009 Rash Tramadol Rash High 08/06/2014 hives documented as of this encounter (statuses as of 04/22/2024) Medications Medication Sig Dispensed Refills Start Date [...] (pain). With food. 30 Tablet 03/16/2022 Active Famotidine 20 MG Oral Tablet (Pepcid)Indication s:Gastroesophageal reflux disease, unspecified whether esophagitis present Take 1 Tablet by mouth at bedtime. 30 Tablet 5 10/04/2023 Active Pantoprazole Sodium 40 MG Oral Tablet Delayed Release (Protonix)Indicati ons:Gastroesophage al reflux disease, unspecified whether esophagitis present Take 1 Tablet by mouth in the morning. 30 minutes before the first meal of the day. Do not crush, split or chew the tablet. 30 Tablet 5 10/04/2023 Active Desogestrel-Ethiny l Estradiol 0.15-30 MG-MCG Oral Tablet Take 1 Tablet by mouth in the morning. 84 Tablet 3 10/15/2023 Active Additional Information Patient not taking.Reported on 11/08/2023 Nystatin-Triamcino lone 444108-6.1 UNIT/GM-% External Cream (Mycolog)Indicatio ns:Vaginal itching Apply topically to affected area 3 times a day. Apply to vulva 3 times a day 15 g 11/08/2023 Active predniSONE 20 MG Oral Tablet (Deltasone)Indicat ions:Neck pain 2 tablets daily for 5 days then 1 tablet daily 15 Tablet 01/14/2024 Active valACYclovir HCl 1 GM Oral Tablet (Valtrex)Indicatio ns:Cold sore Take 2 Tablets by mouth in the morning and 2 Tablets before bedtime. For 1 day for cold sores. 4 Tablet 5 01/22/2024 Active Emgality 120 MG/ML Subcutaneous Solution Auto-injector (Galcanezumab-gnlm ) Inject 1 mL under the skin Every Month. 1 mL 2 03/24/2024 Active Emgality 120 MG/ML Subcutaneous Solution Auto-injector (Galcanezumab-gnlm ) Inject 1 mL under the skin every month. 1 mL 5 12/24/2023 Discontinue d(Refill) Hospital, Clinic, or Other Facility Administered Medication Ordered Dose Route Frequency Start Date End Date Status Albuterol Sulfate (Proventil) (2.5 MG/3ML) 0.083% inhalation solution 2.5 mgIndications:Tobacco use,Chronic cough 2.5 mg NEBULIZER ONCE PRN 03/27/2023 03/26/2024 Ended documented as of this encounter (statuses as of 04/22/2024) Active Problems Patient Care Coordination No te [...] as of this encounter (statuses as of 04/22/2024) Resolved Problems Problem Noted Date Diagnosed Date [...] any family members Transfer of care at [id number] records obtained 01/14/15: antibody screen negative, O-, [...] her mother plans on being her labor technology coach 08/25/2015 Shanice Sanchez, ASHLY 08/25/15 Problem Action Taken Date entered Entered by Date resolved Signs of labor Rviewed signs of labor Aware how to reach application programmer analyst provider 08/31/2015 Shanice Sanchez RN 08/31/15 Problem [...] as of this encounter (statuses as of 04/22/2024) Immunizations Name Administration Dates Next Due HPV Vaccine, 4-Valent 08/16/2009,05/17/2009,04/2009 PPD 10/04/2023, 2,03/22/2011,03/07,11/08/2006 Pneumococcal Polysaccharide PPV23 (Pneumovax) 08/08/2011(Deferred: Patient Refused) Seasonal Influenza, Split, I IV3, With Preserve, Inj 08/08/2011(Deferred: Patient Refused) TDAP (age 10 and [...] encounter Miscellaneous Notes * Telephone Encounter - Neli Dowling radha - 03/24/2024 3:40 PM EDT Reissued remaining Emgality refills documented in this encounter Plan of Treatment Upcoming Encounters Date Type Department Care Team (Latest Contact Info) Description 07/16/2024 8:30 AM EST Hospital Encounter ENDO [facility], Endoscopy Room [facility] [address] [place] [phone] Clarissa Arellano DO [address] [place] [address] 07/16/2024 8:30 AM EST - 07/16/2024 9:00 AM EST Surgery ENDO [facility], Endoscopy Room [facility] [address] [place] [address] Clarissa Arellano DO [address] [place] [address] ESOPHAGOGASTRODUODENOSCOPY (EGD), FLEXIBLE, TRANSORAL, DIAGNOSTIC Scheduled Procedures Name Priority Associated Diagnoses Date/Ti me ESOPHAGOGASTRODUODENOSCOPY ( EGD), FLEXIBLE, TRANSORAL, DIAGNOSTIC Nausea Heartburn Dysphagia, unspecified type 07/16/2024 8:30 AM EST Health Maintenance Due Date Last Done Comments Depression Monitoring 08/09/2021 08/09/2020 COVID-19 Vaccine ( season) 2023 Influenza Vaccine (FLU shot) (#1) 2024 Pap Smear 08/18/2025 08/18/2022, 03/03, 11/29/2016, Additional history exists Diabetes Screening 10/05/2026 10/05/2023, 0 11/11/2021, 03/08/2015, Additional history exists Cervical Cancer Screening 08/18/2027 HPV/Co-Test 08/18/2027 08/18/2022 DTaP,Tdap,and Td Vaccines (8 - Td or Tdap) 03/20/2028 [...] filedocumented as of this encounter Care Teams Information Systems Auditor Relationship Specialty Start Date End Date Fawn Whitehead MD [address] [place] [address] [place] [phone] PCP - General Family Medicine 11/12/19 documented as of this encounter
--- OUTSIDE RECORDS SUMMARY | 2024-09-03 08:11 | External Medical Summary | Summary of Care ---
Author Name Unknown Organization [facility] Address [address] [place] [address] Phone [phone] Care Team Providers Care Delivery Coordinator Name Role Phone Fawn Whitehead MD Primary Care Provide r Reason for Visit * Reason Onset Date Comments Medication Refill 03/24/2024 Encounter Details Date Type Department Care Team (Late st Contact Info) Description 03/24/2024 Telephone Neurology [facility] [address] [place] [address] Sarah Velásquez MD [address] [place] [address] Medication Refill Allergies Active Allergy Reactions Criticality Noted Date Comments Amitriptyline Rash High 09/28/2009 Rash Amoxicillin Rash High 08/21/2002 rash Gabapentin Hives High 06/02/2009 Hives Nortriptyline Hcl Rash High 09/28/2009 Rash Tramadol Rash High 08/06/2014 hives documented as of this encounter (statuses as of 03/24/2024) Medications Medication Sig Dispensed Refills Start Date [...] Patient not taking.Reported on 11/08/2023 Nystatin-Triamcino lone 783899-7.1 UNIT/GM-% External Cream (Mycolog)Indicatio ns:Vaginal itching Apply [...] 2.5 mg NEBULIZER ONCE PRN 03/27/2023 03/26/2024 Active documented as of this encounter (statuses as of 03/24/2024) Active Problems Patient Care Coordination No te [...] as of this encounter (statuses as of 03/24/2024) Resolved Problems Problem Noted Date Diagnosed Date [...] any family members Transfer of care at [id number] records obtained 01/14/15: antibody screen negative, O-, [...] her mother plans on being her labor continuous improvement coach 08/25/2015 Shanice Sanchez, ASHLY 08/25/15 Problem Action Taken Date entered Entered by Date resolved Signs of labor Rviewed signs of labor Aware how to reach business continuity analyst provider 08/31/2015 Shanice Sanchez RN 08/31/15 [...] as of this encounter (statuses as of 03/24/2024) Immunizations Name Administration Dates Next Due HPV [...] EST Hospital Encounter ENDO [facility], Endoscopy Room [facility] [address] [place] [phone] Clarissa Arellano DO [address] [place] [address] 07/16/2024 8:30 AM EST - 07/16/2024 9:00 AM EST Surgery ENDO [facility], Endoscopy Room [facility] [address] [place] [address] Clarissa Arellano DO [address] [place] [address] ESOPHAGOGASTRODUODENOSCOPY (EGD), FLEXIBLE, TRANSORAL, DIAGNOSTIC Scheduled Procedures [...] filedocumented as of this encounter Care Teams Delivery Coordinator Relationship Specialty Start Date End Date Fawn Whitehead MD [address] [place] [address] [place] [id number] PCP - General Family Medicine 11/12/19 documented as of this encounter
--- NOTE | 2024-09-03 08:24 | Emergency Department Note ---
History of Present Illness General Chief complaint: Abdominal Pain Stated complaint: AB PAIN Time Seen by Provider: 09/03/24 08:11 History of Present Illness This is a 38-year-old female who presents to the emergency department via EMS with complaints of "abdominal pain". The patient notes that at 0630 she woke with sudden onset epigastric abdominal pain. She notes the pain was a 10/10 and notes it was worse than childbirth. She notes associated nausea but no vomiting. EMS was summoned. She received morphine and Zofran and notes improvement of symptoms but still some mild persistence of epigastric abdominal pain. No fever. No chest pain or shortness of breath. Patient notes she is otherwise healthy. History of tonsillectomy, tubal ligation. She notes history of allergies to amoxicillin/penicillins. Home Medications Medication Instructions Recorded Confirmed Type Lactobacillus 40-Bifidobact 1 cap PO HS 01/07/22 09/03/24 History 3-S.thermophilus 100 billion cell capsule (Probiotic) pantoprazole 40 mg tablet,delayed 40 mg PO QAM PRN gerd 01/07/22 09/03/24 History release buprenorphine HCl 8 mg sublingual 8 mg sublingual BID 09/03/24 09/03/24 History tablet erenumab-aooe 140 mg/mL 140 mg subcut MONTHLY 09/03/24 09/03/24 History subcutaneous auto-injector (Aimovig Autoinjector) magnesium oxide 400 mg (241.3 mg 400 mg PO QAM 09/03/24 09/03/24 History magnesium) tablet Allergies Allergy/AdvReac Type Severity Reaction Status Date / Time amoxicillin Allergy Intermediate RASH; pt Verified 09/03/24 11:52 tolerated Penicillin G before Penicillins Allergy Mild RASH Verified 09/03/24 11:52 amitriptyline Allergy Unknown RASH Verified 09/03/24 11:52 gabapentin Allergy Unknown RASH Verified 09/03/24 11:52 nortriptyline Allergy Unknown RASH Verified 09/03/24 11:52 tramadol Allergy Unknown HIVES Verified 09/03/24 11:52 AVERT Allergy Unknown HIVES Uncoded 09/03/24 11:52 Past Med/Surg History Problem List (Updated 09/03/24 @ 13:55 by Manuel Andres PA-C) Cholelithiasis (Acute) Abdominal pain, epigastric (Acute) Acute cholecystitis Cervical radiculopathy (Acute) Headache (Acute) Pharyngitis (Acute) Pharyngitis (Acute) Post-dates complicated by subutex maintenance, antepartum Medical History Esophagitis Social History Smoking Status: Former smoker Tobacco Type: Cigarettes Preferred Language: Cook Islander Feels Safe at Home: Yes Review of Systems A total of 10 systems reviewed and were otherwise negative Physical Exam Vital Signs Vital Signs - 24 hr 09/03/24 08:08 09/03/24 08:13 09/03/24 08:13 Temperature 36.4 C L 36.4 C L Temperature Source Oral Oral Pulse Rate 84 84 Pulse Rate [Apical] 84 Respiratory Rate 13 13 13 Blood Pressure 119/71 Blood Pressure [Right Arm] 119/71 Blood Pressure Mean 87 Blood Pressure Mean [Right Arm] 87 Pulse Oximetry 94 94 94 Oxygen Delivery Method Room Air Room Air Room Air Sepsis Recent Fever Within 48 Hours No Sepsis New/Unexplained Change in Mental Status N/A Sepsis Action Taken by Nursing No Action Required 09/03/24 08:22 09/03/24 10:42 Temperature Temperature Source Pulse Rate 79 Pulse Rate [Apical] 85 Respiratory Rate 14 Blood Pressure Blood Pressure [Right Arm] 116/64 Blood Pressure Mean Blood Pressure Mean [Right Arm] 81 Pulse Oximetry 97 Oxygen Delivery Method Room Air Sepsis Recent Fever Within 48 Hours Sepsis New/Unexplained Change in Mental Status Sepsis Action Taken by Nursing VITAL SIGNS - Vital signs and nursing notes were reviewed. Stable and afebrile. GENERAL - 38-year-old female appearing her stated age who is in no acute distress. Communicates well with provider and answers questions appropriately. SKIN - Without rashes. No meningeal or petechial rash. HEAD - NC/AT. EYES - PERRL with EOMI bilaterally. Sclera anicteric. EARS - No deformities of external structures noted on gross examination bilaterally. NOSE - Midline and without cyanosis. No epistaxis or purulent drainage noted. MOUTH/OROPHARYNX - Without perioral cyanosis. NECK - Neck with FROM. No nuchal rigidity. LUNGS - CTA CARDIAC - RRR ABDOMEN - Abdominal contour normal without pulsations or visible masses. BS normoactive all four quadrants. Mild epigastric abdominal tenderness to palpation. No guarding or rigidity. No peritoneal signs. No palpable masses, hepatosplenomegaly, or ascites noted. EXTREMITIES - No clubbing or peripheral cyanosis. +5/5 strength noted in UE/LE bilaterally. NEUROLOGIC - Cranial nerves II through XII grossly intact. PSYCH -alert, oriented and pleasant on exam Course Administered Medications Discontinued Medications Hydromorphone HCl (Hydromorphone Inj 1 Mg/Ml Syringe) 1 mg IV NOW STA Stop: 09/03/24 08:49 Last Admin: 09/03/24 09:18 Dose: 1 mg Documented By: STEFFANY Hydromorphone HCl (Hydromorphone Inj 0.5 Mg/0.5 Ml Syr) 0.5 mg IV NOW STA Stop: 09/03/24 10:59 Last Admin: 09/03/24 11:44 Dose: 0.5 mg Documented By: STEFFANY Acetaminophen (Ofirmev) 1,000 mg in 100 mls @ 400 mls/hr IV NOW STA Stop: 09/03/24 09:02 Last Infusion: 09/03/24 11:43 Dose: Infused Documented By: Admin: 09/03/24 09:18 Dose: 400 mls/hr Documented By: STEFFANY Famotidine (Pepcid 20mg Iv Push) 20 mg in 5 mls @ 2.5 mls/min IV NOW STA Stop: 09/03/24 08:51 Last Admin: 09/03/24 09:19 Dose: 2.5 mls/min Documented By: STEFFANY Ketorolac Tromethamine (Ketorolac Tromethamine 15 Mg/Ml Vial) 10 mg IV NOW ONE Stop: 09/03/24 08:49 Last Admin: 09/03/24 09:19 Dose: 10 mg Documented By: STEFFANY Medical Decision Making Laboratory Data 09/03/24 08:05 09/03/24 08:05 Lab Results 09/03/24 09/03/24 Range/Units 08:05 08:15 WBC 6.71 (4.8-10.8) K/ul RBC 4.55 (4.20-5.40) M/uL Hgb 12.9 (12.0-16.0) g/dl Hct 36.8 L (37.0-47.0) % MCV 80.9 (80.0-100.0) fL MCH 28.4 (25.0-34.0) pg MCHC 35.1 (32.0-36.0) g/dL RDW Std Deviation 34.7 L (36.4-46.3) fL RDW Coeff of Yennifer 11.9 (11.5-14.5) % Plt Count 180 (130-400) K/uL MPV 11.3 (9.4-12.4) fL Immature Gran % (Auto) 0.3 % Neut % (Auto) 62.3 % Lymph % (Auto) 24.6 % [place] % (Auto) 9.7 % Eos % (Auto) 2.7 % Baso % (Auto) 0.4 % Neut # (Auto) 4.18 (1.40-6.50) K/uL Lymph # (Auto) 1.65 (1.20-3.40) K/uL [place] # (Auto) 0.65 H (0.11-0.59) K/uL Eos # (Auto) 0.18 (0.00-0.50) K/uL Baso # (Auto) 0.03 (0.00-0.20) K/uL Immature Gran # (Auto) 0.02 (0.01-0.20) K/uL Sodium 141 (136-145) mmol/L Potassium 3.7 (3.5-5.1) mmol/L Chloride 106 (98-107) mmol/L Carbon Dioxide 28 (21-32) mmol/L Anion Gap 7 (3-11) BUN 8 (6-23) mg/dl Creatinine 0.75 (0.6-1.2) mg/dl Est Cr Clr Drug Dosing 114.7 ml/min eGFR 105.09 BUN/Creatinine Ratio 10.7 (10-20) Glucose 90 (70-99(Fasting)) mg/dl Calcium 9.1 (8.6-10.3) mg/dl Total Bilirubin 0.5 (0.2-1.0) mg/dl AST 22 (13-39) U/L ALT 15 (7-52) U/L Alkaline Phosphatase 52 (34-104) U/L Troponin I High Sens < 2.3 (0-14) pg/ml Total Protein 6.9 (6.0-8.3) gm/dl Albumin 4.1 (3.4-5.0) gm/dl Globulin 2.8 (2.5-4.0) gm/dl Albumin/Globulin Ratio 1.5 (0.9-2) Lipase 25 (11-82) U/L HCG, Qual Negative (Negative) Urine Color Yellow Urine Appearance Clear (Clear) Urine pH 5.5 (4.5-7.5) Ur Specific Carter 1.019 (1.000-1.030) Urine Protein Negative (Negative) Urine Glucose (UA) Negative (Negative) Urine Ketones Trace H (Negative) Urine Blood Negative (Negative) Urine Nitrite Negative (Negative) Urine Bilirubin Negative (Negative) Urine Urobilinogen Negative (Negative) Ur Leukocyte Esterase Negative (Negative) Imaging Data Radiologist's Impression: Gallbladder Ultrasound 09/03/24 08:21 US gallbladder CLINICAL HISTORY: Sudden onset epigastric pain. COMPARISON STUDY: CT of the abdomen and pelvis January 07, 2022. FINDINGS: The liver is sonographically normal. There is no biliary ductal dilatation. The pancreatic body is normal. Head and tail are slightly obscured. There are multiple gallstones within the gallbladder. The gallbladder is mildly distended. There is no gallbladder wall thickening. Sonographic Albert sign was difficult to assess for given pain medication ministration. There is no right hydronephrosis. IMPRESSION: 1. Cholelithiasis and mild gallbladder distention. No gallbladder wall thickening. Sonographic Albert sign difficult to assess for however no convincing evidence for acute cholecystitis. 2. No biliary ductal dilatation. ACT 112: Negative or not required by law. Electronically signed by: Owen Pepper M.D. 09/03/2024 10:03 AM Chest X-Ray 09/03/24 08:22 XR chest 1V portable CLINICAL HISTORY: sudden onset epigastric abd pain COMPARISON STUDY: Chest radiograph January 07, 2022. FINDINGS: The patient is mildly rotated. Lung volumes are normal. Lungs are clear. There is no pneumothorax or pleural effusion. Cardiac size is normal. Mediastinal contours are normal. There is no evidence for pulmonary edema. There is no lucency under the hemidiaphragms to suggest pneumoperitoneum on upright AP chest radiograph. IMPRESSION: No acute cardiopulmonary findings. ACT 112: Negative or not required by law. Electronically signed by: Owen Pepper M.D. 09/03/2024 9:07 AM [facility] Narrative Patient was seen and evaluated as above in room C01. Review was performed of triage nursing notes and vital signs. Patient presents for evaluation of epigastric abdominal pain that awoke her from sleep at 6:30 AM today. On my examination she has already received IV analgesia prehospital and has minimal abdominal tenderness. Otherwise well-appearing and nontoxic. IV access was established. IV analgesia ordered. Labs were drawn. EKG reveals normal sinus rhythm at a rate of 80 bpm. QTc 447. QRS 96. No ST elevation on this rhythm tracing. No leukocytosis or concerning anemia. No emergent metabolic disturbance. Troponin negative and not consistent with acute cardiac injury. Lipase normal. hCG negative. Urinalysis negative for UTI. Ultrasound of the gallbladder plus chest x-ray were performed. Chest x-ray per my interpretation negative for acute process. Ultrasound does show cholelithiasis as well as mild gallbladder distention. No thickening. I discussed presentation with the on-call general surgeon, Dr. Cat. He came to evaluate the patient. Case discussed with hospitalist service. Please refer to further documentation regarding patient's stay. I do not believe that a CT scan of the abdomen/pelvis is needed at this time. GCS: 15 In the evaluation and treatment of this patient the following differential diagnoses were entertained: ACS, dissection, cholecystitis, pancreatitis, among others Impression & Plan Abdominal pain, epigastric, Cholelithiasis Discharge Plan Visit Data Chief Complaint: Abdominal Pain Stated Complaint: AB PAIN ED Provider: Wilfrid Richardson ED Midlevel Provider: Manuel Andres Discharge Problem: Abdominal pain, epigastric, Cholelithiasis Patient Disposition: Admitted As Inpatient Condition: Good Discharge Instructions Interventions: ED Discharge Assessment Last Done: 09/03/24 11:57
[2024-09-03 08:36] LABS: Basophils # (auto) 0.03 K/uL (0.00-0.20); Basophils % (auto) 0.4 %; Eosinophils # (auto) 0.18 K/uL (0.00-0.50); Eosinophils % (auto) 2.7 %; Hematocrit (blood only) 36.8 % (37.0-47.0); Hemoglobin 12.9 g/dl (12.0-16.0); Immature Granulocytes # (auto) 0.02 K/uL (0.01-0.20); Immature Granulocytes % (auto) 0.3 %; Lymphocytes # (auto) 1.65 K/uL (1.20-3.40); Lymphocytes % (auto) 24.6 %; Mean Corpuscular Hemoglobin 28.4 pg (25.0-34.0); Mean Corpuscular Hgb Conc 35.1 g/dL (32.0-36.0); Mean Corpuscular Volume 80.9 fL (80.0-100.0); Mean Platelet Volume 11.3 fL (9.4-12.4); Monocytes # (auto) 0.65 K/uL (0.11-0.59); Monocytes % (auto) 9.7 %; Neutrophils # (auto) 4.18 K/uL (1.40-6.50); Neutrophils % (auto) 62.3 %; Platelet Count 180 K/uL (130-400); RDW Coefficient of Variation 11.9 % (11.5-14.5); RDW Standard Deviation 34.7 fL (36.4-46.3); Red Blood Count 4.55 M/uL (4.20-5.40); White Blood Count 6.71 K/ul (4.8-10.8)
[2024-09-03 08:44] LABS: Alanine Aminotransferase 15 U/L (7-52); Albumin Globulin Ratio 1.5 (0.9-2); Albumin Level 4.1 gm/dl (3.4-5.0); Alkaline Phosphatase 52 U/L (34-104); Anion Gap 7 (3-11); Aspartate Aminotransferase 22 U/L (13-39); BUN Creatinine Ratio 10.7 (10-20); Bilirubin,Total 0.5 mg/dl (0.2-1.0); Blood Urea Nitrogen 8 mg/dl (6-23); Calcium 9.1 mg/dl (8.6-10.3); Carbon Dioxide 28 mmol/L (21-32); Chloride 106 mmol/L (98-107); Creatinine Clr Calc Pharmacy 114.7 ml/min; Globulin 2.8 gm/dl (2.5-4.0); Glucose 90 mg/dl (70-99(Fasting)); Lipase 25 U/L (11-82); Potassium 3.7 mmol/L (3.5-5.1); Sodium 141 mmol/L (136-145); Total Protein 6.9 gm/dl (6.0-8.3)
[2024-09-03 08:44] LABS: Appearance Urine Clear (Clear); Bilirubin Urine Negative (Negative); Blood Urine Negative (Negative); Color Urine Yellow; Glucose Urine UA Negative (Negative); Ketones Urine Trace (Negative); Leukocyte Esterase Urine Negative (Negative); Nitrite Urine Negative (Negative); Protein Urine Negative (Negative); Specific Gravity Urine 1.019 (1.000-1.030); Urobilinogen Urine Negative (Negative); pH Urine 5.5 (4.5-7.5)
[2024-09-03 08:46] LABS: Pregnancy Test, Serum Negative (Negative)
[2024-09-03 08:49] LABS: Troponin I High Sensitivity < 2.3 pg/ml (0-14)
--- NOTE | 2024-09-03 09:08 | XRay Report ---
XR chest 1V portable CLINICAL HISTORY: sudden onset epigastric abd pain COMPARISON STUDY: Chest radiograph January 07, 2022. FINDINGS: The patient is mildly rotated. Lung volumes are normal. Lungs are clear. There is no pneumo thorax or pleural effusion. Cardiac size is normal. Mediastinal contours are normal. There is no evid ence for pulmonary edema. There is no lucency under the hemidiaphragms to suggest pneumoperitoneum on upright AP chest radiograph. IMPRESSION: No acute cardiopulmonary findings. ACT 112: Negative or not required by law. Electronically signed by: Owen Pepper M.D. 09/03/2024 9:07 AM
[2024-09-03] MEDS: HYDROmorphone INJ 1 MG/ML SYRINGE IV STA (09:18)
[2024-09-03] MEDS: ACETAMINOPHEN 1,000 MG/100 ML VIAL IV STA (09:18)
[2024-09-03] MEDS: KETOROLAC TROMETHAMINE 15 MG/ML VIAL IV ONE (09:19)
[2024-09-03] MEDS: FAMOTIDINE 20MG IV PUSH 20 MG/5 ML SYR IV STA (09:19)
--- NOTE | 2024-09-03 10:05 | Ultrasound Report ---
US gallbladder CLINICAL HISTORY: Sudden onset epigastric pain. COMPARISON STUDY: CT of the abdomen and pelvis January 07, 2022. FINDINGS: The liver is sonographically normal. There is no biliary ductal dilatation. The pancreatic body is normal. Head and tail are slightly obscured. There are multiple gallstones within the gallbla dder. The gallbladder is mildly distended. There is no gallbladder wall thickening. Sonographic Monique y sign was difficult to assess for given pain medication ministration. There is no right hydronephros is. IMPRESSION: 1. Cholelithiasis and mild gallbladder distention. No gallbladder wall thickening. Sonographic Albert sign difficult to assess for however no convincing evidence for acute cholecystitis. 2. No biliary ductal dilatation. ACT 112: Negative or not required by law. Electronically signed by: Owen Pepper M.D. 09/03/2024 10:03 AM
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
[2024-09-03] MEDS: HYDROmorphone INJ 0.5 MG/0.5 ML SYR IV STA (11:44)
[2024-09-03] MEDS ORDERED: [UNRECOGNIZED DRUG - OTHER] IV SCH (11:57)
--- NOTE | 2024-09-03 12:12 | Surgery Consultation ---
Date of Consultation September 03, 2024 Assessment & Plan (1) Acute cholecystitis: IVF IV abx NPO to OR in AM for lap zeinab History of Present Illness Attending Physician: Poly Sandhu MD History of Present Illness This is a 38YO female who came to ED with abdominal pain mainly right sided without radiation, It began early this AM. She has associated nausea but no vomiting. US shows gallstones with possible cholecystitis. She having significant pain. Allergies Allergy/AdvReac Type Severity Reaction Status Date / Time amoxicillin Allergy Intermediate RASH; pt Verified 09/03/24 11:52 tolerated Penicillin G before Penicillins Allergy Mild RASH Verified 09/03/24 11:52 amitriptyline Allergy Unknown RASH Verified 09/03/24 11:52 gabapentin Allergy Unknown RASH Verified 09/03/24 11:52 nortriptyline Allergy Unknown RASH Verified 09/03/24 11:52 tramadol Allergy Unknown HIVES Verified 09/03/24 11:52 AVERT Allergy Unknown HIVES Uncoded 09/03/24 11:52 Home Medications Medication Instructions Recorded Confirmed Type Lactobacillus 40-Bifidobact 1 cap PO HS 01/07/22 09/03/24 History 3-S.thermophilus 100 billion cell capsule (Probiotic) pantoprazole 40 mg tablet,delayed 40 mg PO QAM PRN gerd 01/07/22 09/03/24 History release buprenorphine HCl 8 mg sublingual 8 mg sublingual BID 09/03/24 09/03/24 History tablet erenumab-aooe 140 mg/mL 140 mg subcut MONTHLY 09/03/24 09/03/24 History subcutaneous auto-injector (Aimovig Autoinjector) magnesium oxide 400 mg (241.3 mg 400 mg PO QAM 09/03/24 09/03/24 History magnesium) tablet Patient History Medical History Esophagitis Social History Smoking Status: Former smoker Tobacco Type: Cigarettes Preferred Language: Salvadorean Feels Safe at Home: Yes Review of Systems Constitutional: no fever and no chills Eyes: no problem reported Ear, Nose, Mouth, Throat: no problem reported Respiratory: no cough and no dyspnea Cardiovascular: no chest pain Gastrointestinal: + abdominal pain and + nausea; no vomiti ng and no change in bowel habits Genitourinary: no dysuria Musculoskeletal: no back pain Integumentary: no problem reported Neurologic: no localized weakness and no generalized weakness Psychiatric: no behavioral changes Hematologic / Lymphatic: no easy bleeding and no easy bruising Physical Exam Constitutional: WD/WN, vitals as above Eyes: PERRL, conjunctivae normal, anicteric sclerae ENMT: external ear and nose normal, oropharynx normal Neck: trachea midline Respiratory: normal respiratory effort, lungs clear to auscultation Cardiovascular: RRR, no murmur, no edema Gastrointestinal (Abdomen): Inspection/Auscultation: abdomen normal to inspection and normal bowel sounds; abdomen not distended Percussion/Palpation: + abdomen tender and abdomen soft; no guarding and abdomen not rigid Musculoskeletal: Head/Neck/Chest: normocephalic and head atraumatic Skin: no rashes, warm and dry Results & Data Vital Signs (Past 12 Hours) Vital Signs Temp Pulse Pulse Resp BP BP Pulse Ox 09/03/24 12:03 80 13 120/69 95 09/03/24 10:42 85 14 116/64 97 09/03/24 08:22 79 09/03/24 08:13 36.4 C L 84 13 119/71 94 09/03/24 08:13 36.4 C L 84 13 119/71 94 09/03/24 08:08 84 13 94 O2 Del Method 09/03/24 12:03 Room Air 09/03/24 10:42 Room Air 09/03/24 08:22 09/03/24 08:13 Room Air 09/03/24 08:13 Room Air 09/03/24 08:08 Room Air Diagnostic Findings US gallbladder CLINICAL HISTORY: Sudden onset epigastric pain. COMPARISON STUDY: CT of the abdomen and pelvis January 07, 2022. FINDINGS: The liver is sonographically normal. There is no biliary ductal dilatation. The pancreatic body is normal. Head and tail are slightly obscured. There are multiple gallstones within the gallbladder. The gallbladder is mildly distended. There is no gallbladder wall thickening. Sonographic Albert sign was difficult to assess for given pain medication ministration. There is no right h ydronephrosis. IMPRESSION: 1. Cholelithiasis and mild gallbladder distention. No gallbladder wall thickening. Sonographic Albert sign difficult to assess for however no convincing evidence for acute cholecystitis. 2. No biliary ductal dilatation.
[2024-09-03] MEDS: SODIUM CHLORIDE 0.9% 1,000 ML IV SCH (14:40)
[2024-09-03] MEDS: MINI B IV SCH (14:42)
[2024-09-03] MEDS: DEXTROSE 5% IV SCH (14:42)
[2024-09-03] MEDS: CEFUROXIME IV SCH (14:42)
[2024-09-03] MEDS: metroNIDAZOLE 500 MG/100 ML BAG IV SCH (14:43)
[2024-09-03] MEDS: HYDROmorphone INJ 2 MG/ML SYR/VIAL IV PRN (16:42)
[2024-09-03] MEDS: buprenorphine HCL 2 MG SUBL SL SCH (16:49)
--- NOTE | 2024-09-03 21:52 | Electrocardiogram Report ---
Test Reason : Blood Pressure : */* mmHG Vent. Rate : 80 BPM Atrial Rate : 80 BPM P-R Int : 190 ms QRS Dur : 96 ms QT Int : 388 ms P-R-T Axes : 70 78 56 degrees QTcB Int : 447 ms Normal sinus rhythm Normal ECG When compared with ECG of 07-Jan-2022 16:47, No significant change was found Confirmed by Evgeny Isabel ([id number]) on 09/03/2024 9:52:36 PM Referred By: REFERRED SELF Confirmed By: Evgeny Isabel
[2024-09-04 06:59] LABS: Hematocrit (blood only) 33.6 % (37.0-47.0); Hemoglobin 11.6 g/dl (12.0-16.0); Mean Corpuscular Hgb Conc 34.5 g/dL (32.0-36.0); Mean Corpuscular Volume 81.2 fL (80.0-100.0); Mean Platelet Volume 11.6 fL (9.4-12.4); Platelet Count 157 K/uL (130-400); RDW Coefficient of Variation 12.1 % (11.5-14.5); RDW Standard Deviation 35.6 fL (36.4-46.3); Red Blood Count 4.14 M/uL (4.20-5.40); White Blood Count 4.06 K/ul (4.8-10.8)
--- NOTE | 2024-09-04 08:26 | History & Physical Bridge Note ---
Date of Service September 04, 2024 History & Physical Bridge Note I have examined the patient, reviewed the History & Physical and in the interval since the performance of the History & Physical I have noted the following changes of clinical significance: no changes noted
[2024-09-04 08:28] LABS: Albumin Level 3.5 gm/dl (3.4-5.0); Bilirubin,Total 0.8 mg/dl (0.2-1.0); Calcium 8.5 mg/dl (8.6-10.3); Magnesium 1.6 mg/dl (1.7-2.4); Potassium 3.5 mmol/L (3.5-5.1)
[2024-09-04 08:35] LABS: Albumin Globulin Ratio 1.5 (0.9-2); BUN Creatinine Ratio 9.4 (10-20); Creatinine Clr Calc Pharmacy 131.8 ml/min; Globulin 2.4 gm/dl (2.5-4.0); Phosphorus 3.8 mg/dl (2.5-4.9); Total Protein 5.9 gm/dl (6.0-8.3)
[2024-09-04] MEDS ORDERED: ROCURONIUM BROMIDE 10 MG/ML 5 ML VIAL IV ONE (09:19)
[2024-09-04] MEDS ORDERED: LIDOCAINE 2% 2 ML VIAL/AMP(20MG/ML) INFIL ONE (09:19)
[2024-09-04] MEDS ORDERED: PROPOFOL IV EMULSION 10 MG/ML 20 ML VIAL IV ONE (09:19)
[2024-09-04] MEDS ORDERED: DEXAMETHASONE SOD INJ 4 MG/ML VIAL ONE (09:19)
[2024-09-04] MEDS ORDERED: ONDANSETRON INJ 2 MG/ML 2 ML VIAL ONE (09:19)
[2024-09-04] MEDS ORDERED: fentaNYL citrate PF 100 MCG/2 ML VIAL ONE (09:20)
[2024-09-04] MEDS ORDERED: MIDAZOLAM HCL 1 MG/ML 2ML VIAL ONE (09:20)
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
[2024-09-04] MEDS ORDERED: ATROPINE SULFATE 0.1 MG/ML 10ML SYR IV PRN (10:56)
[2024-09-04] MEDS ORDERED: PROMETHAZINE HCL 6.25 MG in SODIUM CHLORIDE 0.9% 50 ML IV PRN (10:56)
[2024-09-04] MEDS ORDERED: ePHEDrine sulfate 50 MG/ML AMP IV PRN (10:56)
--- NOTE | 2024-09-04 10:56 | Anesthesiology Consultation ---
Date of Service September 04, 2024 Assessment & Plan Chart Review Chart Review: Acceptable Risk for Surgery and Patient NOT seen in Pre Admission Testing Consults Requested none ASA ASA2 Proposed Anesthesia Anesthesia Type: General Risk / Benefits Reviewed With: PT / POA / Parent / Guardian, Accepts Plan and Informed Consent Obtained History Surgery Operation Date: 09/04/24 09:35 Proposed Procedures p Laparoscopic Cholecystectomy - Bob Cat MD Height/Weight Height: 5 ft 5 in Weight: 87.9 kg Allergies Allergy/AdvReac Type Severity Reaction Status Date / Time amoxicillin Allergy Intermediate RASH; pt Verified 09/03/24 11:52 tolerated Penicillin G before Penicillins Allergy Mild RASH Verified 09/03/24 11:52 amitriptyline Allergy Unknown RASH Verified 09/03/24 11:52 gabapentin Allergy Unknown RASH Verified 09/03/24 11:52 nortriptyline Allergy Unknown RASH Verified 09/03/24 11:52 tramadol Allergy Unknown HIVES Verified 09/03/24 11:52 AVERT Allergy Unknown HIVES Uncoded 09/03/24 11:52 Medications Home Medications Medication Instructions Recorded Confirmed Last Taken Lactobacillus 40-Bifidobact 1 cap PO HS 01/07/22 09/03/24 09/01/24 3-S.thermophilus 100 billion cell capsule (Probiotic) pantoprazole 40 mg tablet,delayed 40 mg PO QAM PRN gerd 01/07/22 09/03/24 01/07/22 release buprenorphine HCl 8 mg sublingual 8 mg sublingual BID 09/03/24 09/03/24 Unknown tablet erenumab-aooe 140 mg/mL 140 mg subcut MONTHLY 09/03/24 09/03/24 Unknown subcutaneous auto-injector (Aimovig Autoinjector) magnesium oxide 400 mg (241.3 mg 400 mg PO QAM 09/03/24 09/03/24 Unknown magnesium) tablet Active Medications Generic Name Dose Route Start Last Admin Trade Name Freq PRN Reason Stop Dose Admin Buprenorphine HCl 2 mg 09/03/24 13:00 09/03/24 20:06 Buprenorphine Hcl 2 Mg Subl SL 10/03/24 12:59 2 mg QID EZEQUIEL Administration Hydromorphone HCl 1 mg 09/03/24 11:10 09/03/24 21:39 Hydromorphone Inj 2 Mg/Ml Syr/Vial IV 09/17/24 11:09 1 mg Q4H PRN Administration Pain Cefuroxime Sodium 1,500 mg/ 100 mls @ 200 mls/hr 09/03/24 12:30 09/04/24 04:40 Dextrose IV 09/13/24 12:29 Infused Q8H EZEQUIEL Infusion Sodium Chloride 1,000 mls @ 125 mls/hr 09/03/24 11:57 09/04/24 05:55 Nss IV 09/04/24 11:56 Infused .Q8H EZEQUIEL Infusion Metronidazole 500 mg in 100 mls @ 100 mls/hr 09/03/24 12:30 09/04/24 06:19 Flagyl IV 09/13/24 12:29 Infused Q8H EZEQUIEL Infusion NPO Date Last Intake of Fluids: 09/03/24 Time Last Intake of Fluids: 23:59 Date Last Intake of Solids: 09/02/24 Time Last Intake of Solids: 23:00 Past Medical History Medical History Esophagitis Exercise / Class Metabolic Activity II 4-5 Yardwork/Stairs/Walk up hill Past Anesthesia History No Hx of Anesthesia Complications and No Family Hx of Anesthesia Complications History of PONV No Hx of PONV and No Hx of Motion Sickness Social History Smoking Status: Former smoker Do You Dip or Chew Tobacco: No Hx Alcohol Use: Yes alcohol intake frequency: holidays/special occasions only Hx Substance Use: No Physical Exam Vital Signs Last Vital Signs Temp 36.9 C 09/04/24 10:35 Pulse 80 09/04/24 10:35 Resp 16 09/04/24 10:35 BP 141/76 H 09/04/24 10:35 Pulse Ox 100 09/04/24 10:35 O2 Del Method Room Air 09/04/24 10:35 ENMT Mouth: + dentures (upper plate) Thyromental Distance: > or= 3.5 Finger Breadths Mallampati Class: II Neck normal visual inspection Respiratory normal respiratory effort Auscultation: lungs clear to auscultation bilaterally Cardiovascular Rate/Rhythm: regular rate and regular rhythm Psychiatric Orientation: alert Testing Laboratory Results 09/04/24 06:09 09/04/24 06:09 Urine Color Yellow 09/03/24 08:15 Urine Appearance Clear (Clear) 09/03/24 08:15 Urine pH 5.5 (4.5-7.5) 09/03/24 08:15 Ur Specific [place] 1.019 (1.000-1.030) 09/03/24 08:15 Urine Protein Negative (Negative) 09/03/24 08:15 Urine Glucose (UA) Negative (Negative) 09/03/24 08:15 Urine Ketones Trace (Negative) H 09/03/24 08:15 Urine Nitrite Negative (Negative) 09/03/24 08:15 Ur Leukocyte Esterase Negative (Negative) 09/03/24 08:15
[2024-09-04] MEDS ORDERED: HYDROmorphone INJ 2 MG/ML SYR/VIAL ONE (11:29)
[2024-09-04] MEDS: BUPIVACAINE/EPINEPHRINE 0.5% MPF 1:200,000 30 ML VIAL ONE (11:43)
[2024-09-04] MEDS ORDERED: SUGAMMADEX SODIUM 200 MG/2 ML VIAL IV ONE (11:43)
[2024-09-04] MEDS ORDERED: DROPERIDOL 5 MG/2 ML VIAL ONE (11:47)
--- NOTE | 2024-09-04 11:55 | Operative Report ---
Post Operative Report Pre & Post Diagnosis Operation Date: 09/04/24 09:35 Acute cholecystitis I identified the patient and participated in the time-out.: Yes Procedure Operation Date: 09/04/24 09:35 Laparoscopic cholecystectomy Surgeon Bob Cat MD Comparative Sociology Professor Ashlee Bennett PA-C Estimated Blood Loss 10 Findings Consistent with Post-Op Diagnosis Acute inflammatory changes to the gallbladder Specimens Gallbladder to pathology Drains None Anesthesia Type General Complications none Disposition Accompanied Patient To Recovery: No Disposition: Recovery Room Indications This is a 38-year-old female admitted through the ED with acute abdominal pain and she underwent a workup which was consistent with acute cholecystitis. She was placed antibiotics IV fluids and will be taken to the OR for laparoscopic cholecystectomy. She understands all the risks in detail. Description of Procedure The patient was taken the OR, placed in the supine position and underwent excellent general endotracheal anesthesia. Their abdomen is prepped and draped normal sterile fashion. A transverse supraumbilical incision was made and dissection was taken down to identify the anterior fascia. Two Vicryl' sutures were placed on either side of the midline and his midline was then incised. The peritoneal cavity was entered bluntly with Ghislaine clamp. A 12mm Bynum trocar was then inserted and secured. Good pneumoperitoneum was achieved to 15 mmHg pressure. The patient was placed in head up and rolled to the left position. A 11mm subxiphoid and two 5mm lateral ports were placed in the normal fashion. The gallbladder was identified and was acutely inflamed. The fundus of the gallbladder which was retracted superiorly. The neck of the gallbladder was grasped and then retracted laterally. This splayed open the Hepatocystic triangle. Attention was then turned to taking down the peritoneal attachments and identify the cystic duct and cystic artery. Once these were skeletonized and a medial and lateral window was created between the gallbladder fossa and the duct, thereby ensuring the critical view. Then three clips were then placed distally on cystic duct one proximally on the cystic duct, it was then transected. Two clips were then placed approximately on the cystic artery one distally, the cystic artery was transected. An electrocautery hook was then used to move the gallbladder off the gallbladder fossa. There was some bile spillage but no stones were spilled. The gallbladder was then placed into an Endobag and brought out through the supraumbilical incision. The pneumoperitoneum was re-established and abdomen was irrigated out until the suction fluid was clear. There were some areas on the gallbladder fossa which were raw whidch were cauterized. The ports were then removed and the abdomen decompressed. The fascia of the supraumbilical incision was closed with Vicryls. 0.5% Marcaine with epinephrine local was to create a local field block. Interrupted Vicryl was used to close the skin. Dermabond was used to reinforce the incisions. Sterile dressings were applied. Patient tolerated the procedure without complication and sent to the postop recovery period of observation. They will then be sent to the floor for the rest of their care.Ashlee Bennett PA-C was present and participated in the entire procedure. She was integral in skin closure, retraction, and camera manipulation. There was no qualified resident available to assist. I attest to the content of the Intraoperative Record and any orders documented therein. Any exceptions are noted below.
[2024-09-04] MEDS: fentaNYL citrate PF 100 MCG/2 ML VIAL IV PRN (12:15)
[2024-09-04] MEDS: ONDANSETRON INJ 2 MG/ML 2 ML VIAL IV PRN (12:15)
[2024-09-04] MEDS: HYDROmorphone INJ 2 MG/ML SYR/VIAL IV PRN (12:30)
[2024-09-04] MEDS ORDERED: ONDANSETRON INJ 2 MG/ML 2 ML VIAL IV PRN (13:23)
[2024-09-04] MEDS ORDERED: MoRPHine SULFATE 2 MG/ML CARP IV PRN (13:23)
[2024-09-04] MEDS ORDERED: PROMETHAZINE 12.5 MG/50.5 ML BAG IV PRN (13:23)
[2024-09-04] MEDS ORDERED: oxyCODONE HCL IR 5 MG TAB (IMMEDIATE RELEASE) PO PRN (13:23)
[2024-09-04] MEDS: oxyCODONE HCL IR 5 MG TAB (IMMEDIATE RELEASE) PO PRN (15:20)
--- NOTE | 2024-09-04 15:20 | Anesthesiology Progress Note ---
Date of Service September 04, 2024 Anesthesia Post Procedure Vital Signs Vital Signs: Temp Pulse Pulse Pulse Resp BP BP 09/04/24 14:21 37.1 C 80 16 135/80 09/04/24 13:43 36.9 C 86 16 135/78 09/04/24 13:25 37 C 79 16 131/75 09/04/24 13:10 83 14 122/61 09/04/24 12:55 36.6 C 75 14 129/62 09/04/24 12:45 74 12 143/75 H 09/04/24 12:35 74 14 134/74 09/04/24 12:25 71 16 133/66 09/04/24 12:15 75 12 137/80 09/04/24 12:08 36.5 C 81 12 140/68 09/04/24 10:35 36.9 C 80 16 141/76 H 09/04/24 08:18 36.9 C 76 20 119/65 09/03/24 20:15 36.6 C 68 14 124/74 09/03/24 16:10 36.6 C 78 20 131/84 09/03/24 15:57 67 18 125/78 09/03/24 15:48 74 Pulse Ox O2 Del Method O2 Flow Rate 09/04/24 14:21 96 Room Air 09/04/24 13:43 93 Room Air 09/04/24 13:25 97 Room Air 09/04/24 13:10 97 Room Air 09/04/24 12:55 98 Room Air 09/04/24 12:45 100 Room Air 09/04/24 12:35 100 Room Air 09/04/24 12:25 100 Oxymask 3 09/04/24 12:15 100 Oxymask 3 09/04/24 12:08 100 Oxymask 6 09/04/24 10:35 100 Room Air 09/04/24 08:18 97 Room Air 09/03/24 20:15 97 Room Air 09/03/24 16:10 96 Room Air 09/03/24 15:57 97 Room Air 09/03/24 15:48 Pain Intensity Upper Medial Abdomen: Pain Intensity: 4 Abdomen: Pain Intensity: 6 Transfer of Care Handoff Completed per policy Notes Mental Status: alert / awake / arousable Patient Amnestic to Procedure: Yes Nausea / Vomiting: adequately controlled Pain: adequately controlled Airway Patency, RR, SpO2: stable & adequate BP & HR: stable & adequate Hydration State: stable & adequate Anesthetic Complications: no major complications apparent
[2024-09-04] MEDS: MoRPHine SULFATE 4 MG/ML 1 ML CARP\\VIAL IV PRN (21:20)
[2024-09-04] MEDS: MAGNESIUM SULFATE / D5W 1 GM/100 ML BAG IV ONE (22:00)
[2024-09-05 03:47] VITALS: PULSE 84; TEMP 98.1; O2SAT 96
[2024-09-05 08:04] VITALS: BP 111/64; RESP 16
[2024-09-05 08:26] LABS: Basophils # (auto) 0.02 K/uL (0.00-0.20); Basophils % (auto) 0.2 %; Eosinophils # (auto) 0.01 K/uL (0.00-0.50); Eosinophils % (auto) 0.1 %; Hematocrit (blood only) 34.1 % (37.0-47.0); Immature Granulocytes # (auto) 0.02 K/uL (0.01-0.20); Immature Granulocytes % (auto) 0.2 %; Lymphocytes # (auto) 1.31 K/uL (1.20-3.40); Lymphocytes % (auto) 16.3 %; Mean Corpuscular Hemoglobin 28.3 pg (25.0-34.0); Mean Corpuscular Hgb Conc 35.2 g/dL (32.0-36.0); Mean Corpuscular Volume 80.4 fL (80.0-100.0); Mean Platelet Volume 11.8 fL (9.4-12.4); Monocytes # (auto) 0.77 K/uL (0.11-0.59); Monocytes % (auto) 9.6 %; Neutrophils # (auto) 5.89 K/uL (1.40-6.50); Neutrophils % (auto) 73.6 %; Platelet Count 178 K/uL (130-400); RDW Coefficient of Variation 12.1 % (11.5-14.5); RDW Standard Deviation 35.2 fL (36.4-46.3); Red Blood Count 4.24 M/uL (4.20-5.40); White Blood Count 8.02 K/ul (4.8-10.8)
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
== END 2024-09-05 11:31 | disposition home or self-care (01) ==
LOC: ED 08:04 → EDINP 08:04 → SUATTDRO 10:54 → EDINP 11:57 → 3W 16:21

== ENCOUNTER 2024-09-09 01:30 | Inpatient (IN) ==
--- OUTSIDE RECORDS SUMMARY | 2024-09-09 01:35 | External Medical Summary | Summary of Care ---
Author Name Unknown Organization [facility] Address [address] [place] [address] Phone [phone] Care Team Providers Care Production Clerks Supervisor Name Role Phone Fawn Whitehead MD Primary Care Provide r Reason for Visit * Reason Onset Date Comments FYI 09/08/2024 [facility] gen s urg patient Encounter Details Date Type Department Care Team (Late st Contact Info) Description 09/08/2024 Telephone [facility] General Surgery [address] [place] [address] Services, Scheduling [address] [place] [address] FYI ([facility] gen surg patient ) Allergies Active Allergy Reactions Criticality Noted Date Comments Amitriptyline Rash High 09/28/2009 Rash Amoxicillin Rash High 08/21/2002 rash Gabapentin Hives High 06/02/2009 Hives Nortriptyline Hcl Rash High 09/28/2009 Rash Tramadol Rash High 08/06/2014 hives documented as of this encounter (statuses as of 09/08/2024) Medications Buprenorphine HCl 8 MG Sublingual Tablet [...] as of this encounter (statuses as of 09/08/2024) Active Problems Patient Care Coordination No te [...] as of this encounter (statuses as of 09/08/2024) Resolved Problems Problem Noted Date Diagnosed Date Resolved Date Equinus contracture of left ankle 03/27/2023 10/04/2023 GBS (group B Streptococcus c rosa), +RV culture, currently 08/19/2015 09/24/2015 Overview (08/25/2015): Pt allergic to amoxicillin (rash); vanco and penicillin susceptible Supervision of high-risk 05/19/2015 09/24/2015 Overview (09/13/2015): subutex use in - pt desires this info not be shared with FOB or any family members Transfer of care at [id number] records obtained 01/14/15: antibody screen negative, O-, [...] her mother plans on being her labor assistant women's soccer coach 08/25/2015 Shanice Sanchez RN 08/25/15 Problem Action Taken Date entered Entered by Date resolved Signs of labor Rviewed signs of labor Aware how to reach second shift supervisor provider 08/31/2015 Shanice Sanchez RN 08/31/15 Problem [...] Harmon, RN Tobacco smoking complicating 05/19/2015 09/24/2015 Overview [...] as of this encounter (statuses as of 09/08/2024) Immunizations Name Administration Dates Next Due HPV [...] file Not on file Not on file 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 documented in this encounter Plan of Treatment Upcoming Encounters Date Type Department Care Team (Late st Contact Info) Description 09/08/2024 1:15 PM EST Office Visit General Surgery, [facility] [address] [place] [address] Bob Cat MD [address] [facility] [place] [address] 09/18/2024 1:00 PM EST Office Visit General Surgery, [facility] [address] [place] [address] [facility] [place] [address] 11/20/2024 10:00 AM EDT Office Visit Neurology [facility] [address] [facility] [place] [address] Sarah Velásquez MD [address] [facility] [place] [address] Health Maintenance Due Date Last Done Comments [...] 5 Years) and At-Risk Patients (6 to 18 Years and 19+ Years) Aged Out No longer eligib le based on patient's age to complete this topic documented as of this encounter Medical Devices Not on filedocumented as of this encounter Care Teams Production Clerks Supervisor Relationship Specialty Start Date End Date Fawn Whitehead MD [address] [place] [address] [place] [id number] PCP - General Family Medicine 11/12/19 documented as of this encounter
--- OUTSIDE RECORDS SUMMARY | 2024-09-09 01:35 | External Medical Summary | Summary of Care ---
Author Name Unknown Organization [facility] Address [address] [place] [address] Phone [phone] Care Team Providers Care Land Law Examiner Name Role Phone Fawn Whitehead MD Primary Care Provide r Reason for Visit * Reason Onset Date Comments Follow Up 09/05/2024 Encounter Details Date Type Department Care Team (Late st Contact Info) Description 09/05/2024 Telephone General Surgery, [facility] [address] [place] [address] Bob Cat MD [address] [place] [address] Follow Up Allergies Active Allergy Reactions Criticality Noted Date Comments Amitriptyline Rash High 09/28/2009 Rash Amoxicillin Rash High 08/21/2002 rash Gabapentin Hives High 06/02/2009 Hives Nortriptyline Hcl Rash High 09/28/2009 Rash Tramadol Rash High 08/06/2014 hives documented as of this encounter (statuses as of 09/05/2024) Medications Buprenorphine HCl 8 MG Sublingual Tablet [...] as of this encounter (statuses as of 09/05/2024) Active Problems Patient Care Coordination No te [...] as of this encounter (statuses as of 09/05/2024) Resolved Problems Problem Noted Date Diagnosed Date [...] any family members Transfer of care at [id number] records obtained 01/14/15: antibody screen negative, O-, [...] signs of labor Aware how to reach territory sales consultant provider 08/31/2015 Shancie Sanchez RN 08/31/15 Problem Action Taken Date [...] as of this encounter (statuses as of 09/05/2024) Immunizations Name Administration Dates Next Due HPV [...] file Not on file 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 she had previously only taken 2 of her 8 mg of the subutex, she took more, not full dose but still no relief. * Telephone Encounter - Marisela Ceja LPN - 09/05/2024 3:43 PM EST Ashlee Bennett said She needs to get up and walk around see if some of the pain dissipates might be gas pain from the procedure unfortunately cannot give her anything on top of taking her normal subutex. If not better she should go to ER. Can take the 600 mg ibuprofen every 6 hours and the subutex as she normally does. If it's radiating from her abdomen up her ribs to shoulder it's likely the co2 we use for laparoscopic surgery If pain uncontrolled with those measures and any shortness of breath needs to go back to ED 3:35 PM Message sent at 3:35 PM. 5 days left * Telephone Encounter - Marisela Ceja LPN - 09/05/2024 3:32 PM EST Pt calling into clinic crying. Pt stating that she had gallbladder surgery yesterday and was just released from the hospital. Pt stating that her pain has only gotten worse sense she left the hospita. Approx 3 hours ago. Pt stating that her pain is a 8/10 runs across her chest and stomach. Pt stating that he has taken gas ex, has taken ibuprofen, and has used a heating pad, and has taken her subutex to help her with pain. Pt stating that nothing is working and she is wondering if she should go to the ED. Pt denies fever, no chills, no sweats, no bleeding, no drainage, no warmth to the touch to the area. TT send to provider, did discuss with pt , could be gas pains- they typically can be very intense after this procedure. Pt stating again, she did take gas ex with no relief. documented in this encounter Plan of Treatment Upcoming Encounters Date Type Department Care Team (Late st Contact Info) Description 09/10/2024 8:00 AM EST Office Visit [facility] [address] [place] [id number] Yaz Louis, [address] [place] [address] 09/18/2024 1:00 PM EST Office Visit General Surgery, [facility] [address] [place] [address] Bob Cat MD [address] [facility] [address] 11/20/2024 10:00 AM EDT Office Visit Neurology [facility] [address] [facility] [place] [address] Sarah Velásquez MD [address] [place] [address] Health Maintenance Due Date Last Done Comments [...] filedocumented as of this encounter Care Teams Land Law Examiner Relationship Specialty Start Date End Date Fawn Whitehead MD [address] [place] [address] [place] [phone] PCP - General Family Medicine 11/12/19 documented as of this encounter
--- NOTE | 2024-09-09 01:47 | Emergency Department Note ---
Impression & Plan Abdominal pain Admission ED Provider Note HPI: History obtained from patient. The patient is a 38-year-old female who presents the emergency department with a chief complaint of abdominal pain. Patient is status post laparoscopic cholecystectomy that was performed by Dr. Cat on 09/04/2024. Patient subsequently was seen here in the ER after her discharge on 09/05/[address] imaging and MRCP performed that did not show any evidence of any bile leak. Patient ultimately was discharged, patient states she continued to have abdominal pain and therefore returned tonight for further evaluation. Patient states that she has pain in the area of her mid and upper abdomen. She states she feels that she is constipated. On arrival here to the ED the patient is hemodynamically stable. ROS: - Per HPI Differential Diagnosis: Postoperative abscess, postoperative bile leak or biloma, constipation, intra-abdominal hematoma/hemorrhage, amongst other potential pathologies. *Outpatient medications and allergy history reviewed. PE: General: Alert HEENT: Normocephalic, trachea midline Eyes: Extraocular eye movement is intact, no scleral erythema Pulmonary: Clear to auscultation bilaterally, no wheezing Cardio: Regular rate and rhythm GI: Abdomen is soft to palpation, mild tenderness in the mid abdomen without guarding or rigidity : No suprapubic tenderness MSK: No evidence of trauma or malformation of the extremities, no edema Skin: Laparoscopic surgical wounds appear to be healing intact without surrounding erythema or purulent drainage. No evidence of rash. Neuro: Alert, no focal deficits Psychiatric: Cooperative INDEPENDENT INTERPRETATIONS: traffic monitor specialist: (As interpreted by myself): - An order was placed for continuous cardiac monitoring - Patient was noted to be in sinus rhythm with a rate of 90 Interventions provided in ED: -IV fentanyl, IV Zofran Medical Decision Making: IV was established and lab work obtained, patient was placed on cardiac nurse practitioner. Lab work shows no leukocytosis, hemoglobin is normal, platelet count is normal, CMP shows mild elevation in ALT at 74 and alk phos at 148. Bilirubin is normal, lipase is normal, urinalysis does not show any obvious infection. CT imaging of the abdomen pelvis was obtained given the patient's worsening pain, this shows mild improvement in nonspecific postoperative fluid collection in the right upper quadrant which I believe is likely postsurgical in nature. On my reassessment the patient states she is still having generalized abdominal pain that is relatively severe. She is requesting admission. General surgery was consulted and the patient was evaluated the bedside by MISSY Burnham. At this time recommendation is made for admission to the medicine service, case was discussed with Dr. Hernández and the patient was placed for admission in stable condition for further management. Following discussion with general surgery, will consider HIDA scan today inpatient to rule out potential bile leak. Consultants/Discussions held with other healthcare providers: -General Surgery, Dr. Bradford Disposition discussion held by myself with: -Patient Diagnosis: 1. Postoperative abdominal pain, acute, nonspecific Disposition: Admission Timothy Corbin DO Emergency Medicine Past Med/Surg History Problem List (Updated 09/09/24 @ 05:12 by Timothy Corbin DO) Abdominal pain (Acute) Postoperative abdominal pain (Acute) Chronic pain Cholelithiasis (Acute) Abdominal pain, epigastric (Acute) Acute cholecystitis Cervical radiculopathy (Acute) Headache (Acute) Pharyngitis (Acute) Pharyngitis (Acute) Post-dates complicated by subutex maintenance, antepartum Medical History Esophagitis Social History Smoking Status: Former smoker Tobacco Type: Cigarettes Second Hand Exposure: No; Do You Dip or Chew Tobacco: No; Hx Alcohol Use: Yes Hx Substance Use: No Preferred Language: Italian Communication Ability: Effective County Manager Required: No Beliefs That Will Affect Care: None Current Living Situation: Family Feels Safe at Home: Yes Assistive Devices: None Allergies Allergies Allergy/AdvReac Type Severity Reaction Status Date / Time amoxicillin Allergy Intermediate RASH; pt Verified 09/03/24 11:52 tolerated Penicillin G before Penicillins Allergy Mild RASH Verified 09/03/24 11:52 amitriptyline Allergy Unknown RASH Verified 09/03/24 11:52 gabapentin Allergy Unknown RASH Verified 09/03/24 11:52 nortriptyline Allergy Unknown RASH Verified 09/03/24 11:52 tramadol Allergy Unknown HIVES Verified 09/03/24 11:52 AVERT Allergy Unknown HIVES Uncoded 09/03/24 11:52 Home Meds Home Medications Medication Instructions Recorded Confirmed Lactobacillus 40-Bifidobact 1 cap PO HS 01/07/22 09/06/24 3-S.thermophilus 100 billion cell capsule (Probiotic) pantoprazole 40 mg tablet,delayed 40 mg PO QAM PRN gerd 01/07/22 09/06/24 release buprenorphine HCl 8 mg sublingual 8 mg sublingual BID 09/03/24 09/06/24 tablet erenumab-aooe 140 mg/mL 140 mg subcut MONTHLY 09/03/24 09/06/24 subcutaneous auto-injector (Aimovig Autoinjector) magnesium oxide 400 mg (241.3 mg 400 mg PO QAM 09/03/24 09/06/24 magnesium) tablet Results & Data (ED) Vital Signs Vital Signs - 24 hr 09/09/24 01:36 09/09/24 02:02 09/09/24 02:35 Temperature 37.7 C H Temperature Source Oral Pulse Rate 97 H 98 H Pulse Rate [Apical] 85 Respiratory Rate 18 18 Respiratory Effort / Characteristics Non-Labored Non-Labored Respiratory Depth Normal Normal Respiratory Pattern Regular Regular Blood Pressure 142/91 H Blood Pressure [Right Arm] 140/90 Blood Pressure Mean 108 Blood Pressure Mean [Right Arm] 106 Pulse Oximetry 97 97 Oxygen Delivery Method Room Air Room Air Sepsis Recent Fever Within 48 Hours No Sepsis New/Unexplained Change in Mental Status N/A Sepsis Action Taken by Nursing No Action Required 09/09/24 02:35 09/09/24 04:26 Temperature Temperature Source Pulse Rate Pulse Rate [Apical] 91 H Respiratory Rate 18 Respiratory Effort / Characteristics Non-Labored Respiratory Depth Normal Respiratory Pattern Regular Blood Pressure Blood Pressure [Right Arm] 150/89 H Blood Pressure Mean Blood Pressure Mean [Right Arm] 109 Pulse Oximetry 97 97 Oxygen Delivery Method Room Air Room Air Sepsis Recent Fever Within 48 Hours Sepsis New/Unexplained Change in Mental Status Sepsis Action Taken by Nursing Laboratory Data 09/09/24 01:35 09/09/24 01:35 Lab Results 09/09/24 09/09/24 Range/Units 01:35 04:21 WBC 7.23 (4.8-10.8) K/ul RBC 4.52 (4.20-5.40) M/uL Hgb 12.7 (12.0-16.0) g/dl Hct 36.4 L (37.0-47.0) % MCV 80.5 (80.0-100.0) fL MCH 28.1 (25.0-34.0) pg MCHC 34.9 (32.0-36.0) g/dL RDW Std Deviation 35.5 L (36.4-46.3) fL RDW Coeff of Yennifer 12.3 (11.5-14.5) % Plt Count 198 (130-400) K/uL MPV 11.2 (9.4-12.4) fL Immature Gran % (Auto) 0.3 % Neut % (Auto) 68.6 % Lymph % (Auto) 18.8 % Valley % (Auto) 9.0 % Eos % (Auto) 2.9 % Baso % (Auto) 0.4 % Neut # (Auto) 4.96 (1.40-6.50) K/uL Lymph # (Auto) 1.36 (1.20-3.40) K/uL Valley # (Auto) 0.65 H (0.11-0.59) K/uL Eos # (Auto) 0.21 (0.00-0.50) K/uL Baso # (Auto) 0.03 (0.00-0.20) K/uL Immature Gran # (Auto) 0.02 (0.01-0.20) K/uL PT 11.1 (9.0-12.0) Seconds INR 1.0 (0.9-1.1) Sodium 139 (136-145) mmol/L Potassium 3.5 (3.5-5.1) mmol/L Chloride 106 (98-107) mmol/L Carbon Dioxide 26 (21-32) mmol/L Anion Gap 7 (3-11) BUN 7 (6-23) mg/dl Creatinine 0.54 L (0.6-1.2) mg/dl Est Cr Clr Drug Dosing 159.0 ml/min eGFR 121.53 BUN/Creatinine Ratio 13.0 (10-20) Glucose 109 H (70-99(Fasting)) mg/dl Calcium 9.6 (8.6-10.3) mg/dl Total Bilirubin 0.7 (0.2-1.0) mg/dl AST 35 (13-39) U/L ALT 74 H (7-52) U/L Alkaline Phosphatase 148 H (34-104) U/L Total Protein 7.3 (6.0-8.3) gm/dl Albumin 4.3 (3.4-5.0) gm/dl Globulin 3.0 (2.5-4.0) gm/dl Albumin/Globulin Ratio 1.4 (0.9-2) Lipase 50 (11-82) U/L Urine Color Yellow Urine Appearance Clear (Clear) Urine pH 5.5 (4.5-7.5) Ur Specific [place] > 1.045 H (1.000-1.030) Urine Protein Negative (Negative) Urine Glucose (UA) Negative (Negative) Urine Ketones Negative (Negative) Urine Blood Negative (Negative) Urine Nitrite Negative (Negative) Urine Bilirubin Negative (Negative) Urine Urobilinogen Negative (Negative) Ur Leukocyte Esterase Trace H (Negative) Urine WBC (Auto) 0-5 (0-5) /hpf Urine RBC (Auto) 0-2 (0-2) /hpf U Hyaline Cast (Auto) 0-2 (0-2) /lpf U Epithel Cells (Auto) 0-2 (0-2) /hpf Urine Bacteria (Auto) None Seen (None Seen) Administered Medications Hydromorphone HCl (Hydromorphone Inj 0.5 Mg/0.5 Ml Syr) 0.5 mg IV Q6H PRN PRN Reason: Pain Stop: 09/23/24 04:34 Last Admin: 09/09/24 04:46 Dose: 0.5 mg Documented By: ALIZE Sodium Chloride (Nss) 1,000 mls @ 125 mls/hr IV .Q8H EZEQUIEL Stop: 09/10/24 04:44 Last Admin: 09/09/24 04:48 Dose: 125 mls/hr Documented By: ALIZE Discontinued Medications Fentanyl Citrate (Fentanyl Citrate Pf 100 Mcg/2 Ml Vial) 50 mcg IV NOW STA Stop: 09/09/24 02:12 Last Admin: 09/09/24 02:13 Dose: 50 mcg Documented By: JAVID Sodium Chloride (Nss) 1,000 mls @ 999 mls/hr IV .Q1H1M ONE Stop: 09/09/24 02:44 Last Infusion: 09/09/24 03:30 Dose: Infused Documented By: Admin: 09/09/24 02:09 Dose: 999 mls/hr Documented By: JAVID Ceftriaxone Sodium (Rocephin) 2,000 mg in 50 mls @ 100 mls/hr IV NOW STA Stop: 09/09/24 04:36 Last Admin: 09/09/24 04:46 Dose: 100 mls/hr Documented By: ALIZE Ioversol (Optiray 320 100ml) 100 ml IV ONCE ONE Stop: 09/09/24 02:21 Last Admin: 09/09/24 02:20 Dose: 93 ml Documented By: MISAEL Ondansetron HCl (Ondansetron Inj 2 Mg/Ml 2 Ml Vial) 4 mg IV NOW STA Stop: 09/09/24 02:00 Last Admin: 09/09/24 02:09 Dose: 4 mg Documented By: JAVID Imaging Data Radiologist's Impression: Abdomen/Pelvis CT 09/09/24 01:43 EXAM: CT abd pelvis IV con only CLINICAL HISTORY: 93 ml optiray 320, upper abd pain, recent cholecystectomy POD 5 TECHNIQUE: Contiguous axial images were obtained from the level of the diaphragm to the pubic symphysis with intravenous contrast. Coronal and sagittal reconstructions were likewise performed and indicated to increase the sensitivity for detecting clinically relevant pathology. If IV contrast material had not been administered, the likelihood of detecting abnormalities relevant to the patient's condition would have been substantially decreased. CT scan was performed according to ALARA (as low as reasonable achievable). COMPARISON: 09/05/2024 18:42:21 MANAGER RESEARCH AND DEVELOPMENT FINDINGS: The visualized lung bases are clear. The liver is normal in size and attenuation. No focal liver lesions are seen. There is no intra or extrahepatic biliary ductal dilatation. Hepatic vasculature is patent. History of recent cholecystectomy with surgical clips and postsurgical changes is seen. Mild fluid collection is seen at the operative site in the region of the gallbladder fossa with fat stranding. This could be a normal postoperative fluid collection,. Mild prominence of central intrahepatic biliary radicals and common bile duct. These appear to be postsurgical changes. The spleen, pancreas, and adrenal glands are unremarkable. The kidneys are normal in size and attenuation. There is no hydronephrosis or perinephric fat stranding. No renal calculi or renal masses are identified. The ureters are normal in caliber and no ureteral calculi are seen. The bladder is normal in contour. Pelvic viscera are unremarkable. No focal or diffuse bowel wall thickening or evidence of bowel obstruction is identified. The appendix is visualized in the right lower quadrant and appears within normal limits. Abdominal and pelvic vasculature is patent. No adenopathy are seen. No aggressive appearing osseous lesions are identified. Mild free fluid noted in pelvis IMPRESSION: History of recent cholecystectomy with surgical clips and postsurgical changes is seen. Mild fluid collection is seen at the operative site in the region of the gallbladder fossa with fat stranding. This could be a normal postoperative fluid collection,. -mild reduced compare to prior.- follow up suggested Mild prominence of central intrahepatic biliary radicals and common bile duct. These appear to be postsurgical changes.-stable. Mild free fluid noted in pelvis -stable. Electronically signed by David Gore 09-09-2024 03:42 AM Discharge Plan Visit Data Chief Complaint: Abdominal Pain Stated Complaint: ABDOMINAL PAIN ED Provider: Timothy Corbin Discharge Problem: Abdominal pain Forms Stand Alone Forms: [employer] Prescriptions Prescriptions: No Action pantoprazole 40 mg tablet,delayed release (DR/EC) 40 mg PO QAM PRN (Reason: gerd) Probiotic 100 billion cell Capsule 1 cap PO HS buprenorphine HCl 8 mg tablet, sublingual 8 mg SUBLINGUAL BID magnesium oxide 400 mg (241.3 mg magnesium) tablet 400 mg PO QAM Aimovig Autoinjector 140 mg/mL auto-injector 140 mg SUBCUT MONTHLY Referrals Referrals: Fawn Whitehead MD [Primary Care Provider] -
[2024-09-09 02:06] LABS: Basophils # (auto) 0.03 K/uL (0.00-0.20); Basophils % (auto) 0.4 %; Eosinophils # (auto) 0.21 K/uL (0.00-0.50); Eosinophils % (auto) 2.9 %; Hematocrit (blood only) 36.4 % (37.0-47.0); Hemoglobin 12.7 g/dl (12.0-16.0); Immature Granulocytes # (auto) 0.02 K/uL (0.01-0.20); Immature Granulocytes % (auto) 0.3 %; Lymphocytes # (auto) 1.36 K/uL (1.20-3.40); Lymphocytes % (auto) 18.8 %; Mean Corpuscular Hemoglobin 28.1 pg (25.0-34.0); Mean Corpuscular Hgb Conc 34.9 g/dL (32.0-36.0); Mean Corpuscular Volume 80.5 fL (80.0-100.0); Mean Platelet Volume 11.2 fL (9.4-12.4); Monocytes # (auto) 0.65 K/uL (0.11-0.59); Neutrophils # (auto) 4.96 K/uL (1.40-6.50); Neutrophils % (auto) 68.6 %; Platelet Count 198 K/uL (130-400); RDW Coefficient of Variation 12.3 % (11.5-14.5); RDW Standard Deviation 35.5 fL (36.4-46.3); Red Blood Count 4.52 M/uL (4.20-5.40); White Blood Count 7.23 K/ul (4.8-10.8)
[2024-09-09] MEDS: ONDANSETRON INJ 2 MG/ML 2 ML VIAL IV STA (02:09)
[2024-09-09] MEDS: SODIUM CHLORIDE 0.9% 1,000 ML IV ONE (02:09)
[2024-09-09] MEDS: fentaNYL citrate PF 100 MCG/2 ML VIAL IV STA (02:13)
[2024-09-09] MEDS: OPTIRAY 320 100ml IV ONE (02:20)
[2024-09-09 02:22] LABS: Albumin Globulin Ratio 1.4 (0.9-2); Albumin Level 4.3 gm/dl (3.4-5.0); Bilirubin,Total 0.7 mg/dl (0.2-1.0); Calcium 9.6 mg/dl (8.6-10.3); Potassium 3.5 mmol/L (3.5-5.1); Total Protein 7.3 gm/dl (6.0-8.3)
[2024-09-09 02:55] LABS: Prothrombin Time 11.1 Seconds (9.0-12.0)
--- NOTE | 2024-09-09 03:42 | CT Scan Report ---
EXAM: CT abd pelvis IV con only CLINICAL HISTORY: 93 ml optiray 320, upper abd pain, recent cholecystectomy POD 5 TECHNIQUE: Contiguous axial images were obtained from the level of the diaphragm to the pubic symphysis with intravenous contrast. Coronal and sagittal reconstructions were likewise performed and indicated to increase the sensitivity for detecting clinically relevant pathology. If IV contrast material had not been administered, the likelihood of detecting abnormalities relevant to the patient's condition would have been substantially decreased. CT scan was performed according to ALARA (as low as reasonable achievable). COMPARISON: 09/05/2024 18:42:21 MARBLE CARVER FINDINGS: The visualized lung bases are clear. The liver is normal in size and attenuation. No focal liver lesions are seen. There is no intra or extrahepatic biliary ductal dilatation. Hepatic vasculature is patent. History of recent cholecystectomy with surgical clips and postsurgical changes is seen. Mild fluid collection is seen at the operative site in the region of the gallbladder fossa with fat stranding. This could be a normal postoperative fluid collection,. Mild prominence of central intrahepatic biliary radicals and common bile duct. These appear to be postsurgical changes. The spleen, pancreas, and adrenal glands are unremarkable. The kidneys are normal in size and attenuation. There is no hydronephrosis or perinephric fat stranding. No renal calculi or renal masses are identified. The ureters are normal in caliber and no ureteral calculi are seen. The bladder is normal in contour. Pelvic viscera are unremarkable. No focal or diffuse bowel wall thickening or evidence of bowel obstruction is identified. The appendix is visualized in the right lower quadrant and appears within normal limits. Abdominal and pelvic vasculature is patent. No adenopathy are seen. No aggressive appearing osseous lesions are identified. Mild free fluid noted in pelvis IMPRESSION: History of recent cholecystectomy with surgical clips and postsurgical changes is seen. Mild fluid collection is seen at the operative site in the region of the gallbladder fossa with fat stranding. This could be a normal postoperative fluid collection,. -mild reduced compare to prior.- follow up suggested Mild prominence of central intrahepatic biliary radicals and common bile duct. These appear to be postsurgical changes.-stable. Mild free fluid noted in pelvis -stable. Electronically signed by David Gore 09-09-2024 03:42 AM
--- NOTE | 2024-09-09 04:25 | Surgery Consultation ---
Date of Consultation September 09, 2024 Assessment & Plan (1) Postoperative abdominal pain: I discussed with the treating emergency room physician and the patient is tenably going to be admitted on the hospitalist service. The cause of patient's abdominal pain has not been definitively ascertained. Possible etiologies include: -postoperative incisional pain -pain from constipation Pain from postoperative fluid collection which could merely be a postoperative seroma, abscess, hematoma, or biloma. I have low clinical index of suspicion that this is a hematoma as patient has not had a significant drop in her hemoglobin or hematocrit. Patient does have a low-grade fever and there is some noted stranding at the fluid collection, but she does not have leukocytosis therefore making abscess less likely. Although the patient's bilirubin and AST are normal she does have some elevation of her alkaline p hosphatase and ALT raising the possibility of a possible bile leak so we will therefore check a HIDA scan. If the HIDA scan does show evidence of a bile leak we will enlist the help of gastroenterology. While we are awaiting the patient's HIDA scan would recommend the following: Keep patient n.p.o. Hydrate with IV fluids Provide analgesics Provide antiemetics Follow serial labs As noted above there is the possibility patient could have a postoperative abscess/infection, and even though this may be unlikely we will empirically cover with antibiotics and the treating emergency room physician has initiated Rocephin. At the time of my exam/interview with the patient she did complain of considerable discomfort in the right upper quadrant but she did not appear toxic. She was noted to be normotensive with a slight tachycardia heart rate in the 90s. She was noted to have a low-grade temperature of 37.7. We will await pending studies as noted above with further recommendations to follow thereafter Went to see patient but she is over getting her HIDA scan. Will follow-up after History of Present Illness Reason for Consultation: Abdominal pain, status postcholecystectomy History of Present Illness This is a 38-year-old female who had a recent surgical procedure by Dr. Cat of [facility] surgery. The patient underwent a laparoscopic cholecystectomy on 09/04/2024. The patient was discharged to home the day after her procedure. It is noted that the patient did have labs on the day of her discharge. CBC revealed her white blood cell count was normal. Her hemoglobin was also normal and her hematocrit was slightly low at 34.1. Her platelet count is normal. She did not have a chemistry profile or her LFTs the day of discharge. The patient notes that she was initially doing well at the time of discharge however the patient presented to the emergency department the same day as discharge secondary to abdominal pain. The patient noted she had pain in the upper abdomen that got progressively worse since her discharge. At that time she did not have any nausea or vomiting. During this emergency department visit the patient did have labs performed where CBC revealed white blood cell count was again normal. Her hemoglobin and hematocrit were 12.1 and 34.7 and her platelet count was noted to be normal. Chemistry profile showed sodium is 141 with a potassium of 3.4. Her BUN and creatinine were noted to be normal. The patient's total bilirubin was noted to be normal and her AST was elevated at 102. Her ALT was elevated at 54 and her alkaline phosphatase was normal. Urinalysis was not indicative of infection. During this visit the patient also did have imaging performed where CT scan of the abdomen pelvis was performed that noted the patient had a mild fluid collection at the operative site in the region of the gallbladder fossa with some air and fat stranding. Interpreting radiologist could not exclude a biliary leak. The patient then underwent an MRCP with no evidence of biliary injury was noted on that study. The treating clinician in the emergency department did discuss with general surgery and was felt the patient would likely benefit from a HIDA scan however this modality was unavailable at [facility] on the day of this presentation. Due to the findings noted on available imaging it was felt the patient could safely be discharged home with outpatient follow-up. Patient presented to the emergency department today secondary to continued abdominal pain. The patient said that she was feeling well earlier today however after eating she developed severe pain mostly in the right upper quadrant without radiation. She does report running a low-grade fever at home. She denies any nausea or vomiting. She denies any other modifying or mitigating factors to her pain. She also adds that she feels as though she is constipated as she has not had much in the way of bowel function since her surgery. She says she did give herself an enema today with only a very small result. Since arrival to the emergency department today the patient has had labs and imaging which I independent reviewed. She did have a CT scan of the abdomen pelvis that showed findings consistent with a recent cholecystectomy. There was a mild fluid collection again seen at the operative site with some fat stranding. There was some prominence of the intrahepatic and common bile ducts. Labs included CBC were white blood cell count and hemoglobin were normal. Her hematocrit was slightly low at 36.4. Platelet count was 198,000. Coagulation studies were normal. Chemistry profile showed sodium and potassium are normal. BUN was normal. Her creatinine was nonelevated at 0.5. LFTs showed a total bilirubin 0.7 and an AST at 35. Her ALT and alkaline phosphatase were 74 and 140 respectively. There is no elevation of her lipase. At the time of my exam the patient continued to complain of considerable pain in her right upper quadrant. Allergies Allergy/AdvReac Type Severity Reaction Status Date / Time amoxicillin Allergy Intermediate RASH; pt Verified 09/03/24 11:52 tolerated Penicillin G before Penicillins Allergy Mild RASH Verified 09/03/24 11:52 amitriptyline Allergy Unknown RASH Verified 09/03/24 11:52 gabapentin Allergy Unknown RASH Verified 09/03/24 11:52 nortriptyline Allergy Unknown RASH Verified 09/03/24 11:52 tramadol Allergy Unknown HIVES Verified 09/03/24 11:52 AVERT Allergy Unknown HIVES Uncoded 09/03/24 11:52 Home Medications Medication Instructions Recorded Confirmed Type Lactobacillus 40-Bifidobact 1 cap PO HS 01/07/22 09/09/24 History 3-S.thermophilus 100 billion cell capsule (Probiotic) pantoprazole 40 mg tablet,delayed 40 mg PO QAM PRN gerd 01/07/22 09/09/24 History release buprenorphine HCl 8 mg sublingual 8 mg sublingual BID 09/03/24 09/09/24 History tablet erenumab-aooe 140 mg/mL 140 mg subcut MONTHLY 09/03/24 09/09/24 History subcutaneous auto-injector (Aimovig Autoinjector) magnesium oxide 400 mg (241.3 mg 400 mg PO QAM 09/03/24 09/09/24 History magnesium) tablet Patient History Medical History Esophagitis Social History Smoking Status: Former smoker Tobacco Type: Cigarettes Second Hand Exposure: No; Do You Dip or Chew Tobacco: No; Hx Alcohol Use: Yes Hx Substance Use: No Preferred Language: Syriac Communication Ability: Effective Fortune Cookie Maker Required: No Beliefs That Will Affect Care: None Current Living Situation: Family Feels Safe at Home: Yes Assistive Devices: None Review of Systems Review of Systems: All systems reviewed & are unremarkable except as noted in HPI & below Physical Exam Constitutional: well developed and well nourished Patient appeared uncomfortable at the time of my exam Eyes: + anicteric sclerae ENMT: Ears: no hearing impairment and no external ear abnormality Mouth: no oropharynx abnormality Neck: trachea midline Respiratory: normal respiratory effort; no respiratory distress and no labored breathing Cardiovascular: Rate/Rhythm: regular rate and regular rhythm Gastrointestinal (Abdomen): Patient's abdomen is soft with minimal distention. It is nonrigid. There is no rebound tenderness but patient did have some guarding with palpation of the right upper quadrant. There was tenderness with palpation in the right upper quadrant in the greatest proximity near her surgical incisions. All of her surgical incisions appear to be clean, dry, intact without signs of infection. Musculoskeletal: No calf tenderness Skin: no jaundice Neurologic: moves all extremities Psychiatric: Orientation: alert and oriented x 3 Affect: + anxious affect Results & Data Vital Signs (Past 12 Hours) Vital Signs Temp Pulse Pulse Resp BP BP Pulse Ox 09/09/24 02:35 97 09/09/24 02:35 85 18 140/90 97 09/09/24 02:02 37.7 C H 98 H 18 142/91 H 97 09/09/24 01:36 97 H O2 Del Method 09/09/24 02:35 Room Air 09/09/24 02:35 Room Air 09/09/24 02:02 Room Air 09/09/24 01:36 PG Care Time/CCT Total # of Minutes Spent Total Time Spent with Patient: Total time spent is greater than 50% in coordination of care (as documented) at patient's floor/unit and/or counseling patient: Coding Level of Care Code None Diagnoses Postoperative abdominal pain R10.9; G89.18
[2024-09-09] MEDS ORDERED: ONDANSETRON INJ 2 MG/ML 2 ML VIAL IV PRN (04:35)
[2024-09-09 04:36] LABS: Appearance Urine Clear (Clear); Bacteria Urine Automated None Seen (None Seen); Bilirubin Urine Negative (Negative); Blood Urine Negative (Negative); Cast Urine Automated 0-2 /lpf (0-2); Color Urine Yellow; Epithelial Cell Urine Auto 0-2 /hpf (0-2); Glucose Urine UA Negative (Negative); Ketones Urine Negative (Negative); Leukocyte Esterase Urine Trace (Negative); Nitrite Urine Negative (Negative); Protein Urine Negative (Negative); RBC Urine Automated 0-2 /hpf (0-2); Specific Gravity Urine > 1.045 (1.000-1.030); Urobilinogen Urine Negative (Negative); WBC Urine Automated 0-5 /hpf (0-5); pH Urine 5.5 (4.5-7.5)
[2024-09-09] MEDS: HYDROmorphone INJ 0.5 MG/0.5 ML SYR IV PRN (04:46)
[2024-09-09] MEDS: cefTRIAXone SODIUM 2,000 MG/50 ML BAG IV STA (04:46)
[2024-09-09] MEDS: SODIUM CHLORIDE 0.9% 1,000 ML IV SCH (04:48)
[2024-09-09] MEDS: SIMETHICONE 80 MG CHEW PO STA (06:46)
[2024-09-09] MEDS: HYDROmorphone INJ 0.5 MG/0.5 ML SYR IV STA (07:59)
[2024-09-09] MEDS: HYDROmorphone INJ 1 MG/ML SYRINGE IV STA (08:16)
--- NOTE | 2024-09-09 08:42 | History & Physical Report ---
Date of Service September 09, 2024 Assessment & Plan (1) Abdominal pain: Plan: 38-year-old female with past medical history significant for nonrheumatic mitral valve regurgitation, GERD , migraine without aura, small left occipital venous angioma, tobacco use disorder, general anxiety disorder, depression, history of opioid use comes with abdominal pain. Patient recently had laparoscopic cholecystectomy on 09/04/2024 and was discharged home on 09/05/2024. Patient was back in ER on 09/05/2024 after discharge with abdominal pain and CT imaging and MRCP were done with which did not show any evidence of biliary leak and patient was discharged home. She comes back again today because of severe abdominal pain. Patient did not moved her bowel since last 1 week. Surgery recommended HIDA scan. Patient states having lot of pain and asking for pain medications. Also has some lower chest pain. Has Some nausea. Micturating okay. Had mild temp spike in the ER. Also having shortness of breath seems from pain. No headache or runny nose or sore throat. Hemodynamics are okay. Abdominal pain Had laparoscopic cholecystectomy on 09/04/2024 Was discharged on 09/05/2024 and came back to ER on same day with abdominal pain and CT abdomen pelvis was done which showed mild fluid collection at operative site in the region of gallbladder fossa. MRCP was done which showed postoperative changes but no evidence of biliary injury. Comes again today with abdominal pain and again CT abdomen and pelvis was done which showed mildly reduced postoperative fluid collection. Surgery planning for HIDA scan Empiric antibiotics for now. On Rocephin and Flagyl Pain control N.p.o. IV fluids Close monitor Chest pain On the lower chest Mostly coming from her abdominal pain Will follow EKG and serial enzymes Constipation Stool softeners after surgical evaluation GERD Will place on IV Protonix Chronic pain On buprenorphine DVT prophylaxis SCDs for now Disposition Med/telemetry Full code. History of Present Illness Chief Complaint: Abdominal pain Primary Care Provider: Fawn Whitehead MD 38-year-old female with past medical history significant for nonrheumatic mitral valve regurgitation, GERD , migraine without aura, small left occipital venous angioma, tobacco use disorder, general anxiety disorder, depression, history of opioid use comes with abdominal pain. Patient recently had laparoscopic cholecystectomy on 09/04/2024 and was discharged home on 09/05/2024. Patient was back in ER on 09/05/2024 after discharge with abdominal pain and CT imaging and MRCP were done with which did not show any evidence of biliary leak and patient was discharged home. She comes back again today because of severe abdominal pain. Patient did not moved her bowel since last 1 week. Surgery recommended HIDA scan. Patient states having lot of pain and asking for pain medications. Also has some lower chest pain. Has Some nausea. Micturating okay. Had mild temp spike in the ER. Also having shortness of breath seems from pain. No headache or runny nose or sore throat. Hemodynamics are okay. Past medical history. As mentioned above. Past surgical history. Colposcopy with cervical biopsy. EGD. Left eyelid surgery. Laparoscopic oophorectomy bilateral. Tonsillectomy adenoidectomy. Social history. Smoked 1 pack a day for 15 years. Alcohol occasional. No drug use currently. Family history. Mother has asthma. Father has cirrhosis. Mental disorder. Sister has asthma. Paternal aunt had breast cancer. Sister has celiac disease. Maternal grandmother had diabetes. Heart disorder. Cancer. Paternal grandfather had heart disorder. Maternal grandfather had heart attack. Allergies Allergy/AdvReac Type Severity Reaction Status Date / Time amoxicillin Allergy Intermediate RASH; pt Verified 09/03/24 11:52 tolerated Penicillin G before Penicillins Allergy Mild RASH Verified 09/03/24 11:52 amitriptyline Allergy Unknown RASH Verified 09/03/24 11:52 gabapentin Allergy Unknown RASH Verified 09/03/24 11:52 nortriptyline Allergy Unknown RASH Verified 09/03/24 11:52 tramadol Allergy Unknown HIVES Verified 09/03/24 11:52 AVERT Allergy Unknown HIVES Uncoded 09/03/24 11:52 Home Medications Medication Instructions Recorded Confirmed Type Lactobacillus 40-Bifidobact 1 cap PO HS 01/07/22 09/09/24 History 3-S.thermophilus 100 billion cell capsule (Probiotic) pantoprazole 40 mg tablet,delayed 40 mg PO QAM PRN gerd 01/07/22 09/09/24 History release buprenorphine HCl 8 mg sublingual 8 mg sublingual BID 09/03/24 09/09/24 History tablet erenumab-aooe 140 mg/mL 140 mg subcut MONTHLY 09/03/24 09/09/24 History subcutaneous auto-injector (Aimovig Autoinjector) magnesium oxide 400 mg (241.3 mg 400 mg PO QAM 09/03/24 09/09/24 History magnesium) tablet Past Med/Surg History Problem List (Updated 09/09/24 @ 05:12 by Timothy Corbin DO) Abdominal pain (Acute) Postoperative abdominal pain (Acute) Chronic pain Cholelithiasis (Acute) Abdominal pain, epigastric (Acute) Acute cholecystitis Cervical radiculopathy (Acute) Headache (Acute) Pharyngitis (Acute) Pharyngitis (Acute) Post-dates complicated by subutex maintenance, antepartum Medical History Esophagitis Social History Smoking Status: Former smoker Tobacco Type: Cigarettes Second Hand Exposure: No; Do You Dip or Chew Tobacco: No; Hx Alcohol Use: Yes Hx Substance Use: No Preferred Language: Maltese Communication Ability: Effective Stock Clerk Required: No Beliefs That Will Affect Care: None Current Living Situation: Family Feels Safe at Home: Yes Assistive Devices: None Review of Systems Review of Systems: All systems reviewed & are unremarkable except as noted in HPI & below Physical Exam Physical Exam: General- Seems in pain. Head- atraumatic Eyes- PERRL. ENT- oropharynx dry Neck- supple, no JVD. Lungs- clear to auscultation no wheezing or crackles Heart- regular rhythm; no murmur, no gallop. Abdomen- sluggish bowel sounds, soft, diffuse tender mild distension Extremities- no pretibial edema, no erythema seen Neuro- alert, oriented PERRL, no facial palsy; no dysarthria; moves extremities Results & Data Results & Data Vital Signs (Past 12 Hours) Vital Signs Temp Pulse Pulse Resp BP BP Pulse Ox 09/09/24 08:21 86 20 150/88 H 97 09/09/24 07:27 94 H 14 142/88 H 97 09/09/24 06:00 88 18 128/80 97 09/09/24 05:26 113 H 09/09/24 04:26 91 H 18 150/89 H 97 09/09/24 02:35 97 09/09/24 02:35 85 18 140/90 97 09/09/24 02:02 37.7 C H 98 H 18 142/91 H 97 09/09/24 01:36 97 H O2 Del Method 09/09/24 08:21 Room Air 09/09/24 07:27 Room Air 09/09/24 06:00 Room Air 09/09/24 05:26 09/09/24 04:26 Room Air 09/09/24 02:35 Room Air 09/09/24 02:35 Room Air 09/09/24 02:02 Room Air 09/09/24 01:36 Diagnostic Findings Laboratory Results WBC 7.23 K/ul (4.8-10.8) 09/09/24 01:35 RBC 4.52 M/uL (4.20-5.40) 09/09/24 01:35 Hgb 12.7 g/dl (12.0-16.0) 09/09/24 01:35 Hct 36.4 % (37.0-47.0) L 09/09/24 01:35 MCV 80.5 fL (80.0-100.0) 09/09/24 01:35 MCH 28.1 pg (25.0-34.0) 09/09/24 01:35 MCHC 34.9 g/dL (32.0-36.0) 09/09/24 01:35 RDW Std Deviation 35.5 fL (36.4-46.3) L 09/09/24 01:35 RDW Coeff of Yennifer 12.3 % (11.5-14.5) 09/09/24 01:35 Plt Count 198 K/uL (130-400) 09/09/24 01:35 MPV 11.2 fL (9.4-12.4) 09/09/24 01:35 Immature Gran % (Auto) 0.3 % 09/09/24 01:35 Neut % (Auto) 68.6 % 09/09/24 01:35 Lymph % (Auto) 18.8 % 09/09/24 01:35 [place] % (Auto) 9.0 % 09/09/24 01:35 Eos % (Auto) 2.9 % 09/09/24 01:35 Baso % (Auto) 0.4 % 09/09/24 01:35 Neut # (Auto) 4.96 K/uL (1.40-6.50) 09/09/24 01:35 Lymph # (Auto) 1.36 K/uL (1.20-3.40) 09/09/24 01:35 [place] # (Auto) 0.65 K/uL (0.11-0.59) H 09/09/24 01:35 Eos # (Auto) 0.21 K/uL (0.00-0.50) 09/09/24 01:35 Baso # (Auto) 0.03 K/uL (0.00-0.20) 09/09/24 01:35 Immature Gran # (Auto) 0.02 K/uL (0.01-0.20) 09/09/24 01:35 PT 11.1 Seconds (9.0-12.0) 09/09/24 01:35 INR 1.0 (0.9-1.1) 09/09/24 01:35 Sodium 139 mmol/L (136-145) 09/09/24 01:35 Potassium 3.5 mmol/L (3.5-5.1) 09/09/24 01:35 Chloride 106 mmol/L (98-107) 09/09/24 01:35 Carbon Dioxide 26 mmol/L (21-32) 09/09/24 01:35 Anion Gap 7 (3-11) 09/09/24 01:35 BUN 7 mg/dl (6-23) 09/09/24 01:35 Creatinine 0.54 mg/dl (0.6-1.2) L 09/09/24 01:35 Est Cr Clr Drug Dosing 159.0 ml/min 09/09/24 01:35 eGFR 121.53 09/09/24 01:35 BUN/Creatinine Ratio 13.0 (10-20) 09/09/24 01:35 Glucose 109 mg/dl (70-99(Fasting)) H 09/09/24 01:35 Calcium 9.6 mg/dl (8.6-10.3) 09/09/24 01:35 Total Bilirubin 0.7 mg/dl (0.2-1.0) 09/09/24 01:35 AST 35 U/L (13-39) 09/09/24 01:35 ALT 74 U/L (7-52) H 09/09/24 01:35 Alkaline Phosphatase 148 U/L (34-104) H 09/09/24 01:35 Total Protein 7.3 gm/dl (6.0-8.3) 09/09/24 01:35 Albumin 4.3 gm/dl (3.4-5.0) 09/09/24 01:35 Globulin 3.0 gm/dl (2.5-4.0) 09/09/24 01:35 Albumin/Globulin Ratio 1.4 (0.9-2) 09/09/24 01:35 Lipase 50 U/L (11-82) 09/09/24 01:35 Urine Color Yellow 09/09/24 04:21 Urine Appearance Clear (Clear) 09/09/24 04:21 Urine pH 5.5 (4.5-7.5) 09/09/24 04:21 Ur Specific [place] > 1.045 (1.000-1.030) H 09/09/24 04:21 Urine Protein Negative (Negative) 09/09/24 04:21 Urine Glucose (UA) Negative (Negative) 09/09/24 04:21 Urine Ketones Negative (Negative) 09/09/24 04:21 Urine Blood Negative (Negative) 09/09/24 04:21 Urine Nitrite Negative (Negative) 09/09/24 04:21 Urine Bilirubin Negative (Negative) 09/09/24 04:21 Urine Urobilinogen Negative (Negative) 09/09/24 04:21 Ur Leukocyte Esterase Trace (Negative) H 09/09/24 04:21 Urine WBC (Auto) 0-5 /hpf (0-5) 09/09/24 04:21 Urine RBC (Auto) 0-2 /hpf (0-2) 09/09/24 04:21 U Hyaline Cast (Auto) 0-2 /lpf (0-2) 09/09/24 04:21 U Epithel Cells (Auto) 0-2 /hpf (0-2) 09/09/24 04:21 Urine Bacteria (Auto) None Seen (None Seen) 09/09/24 04:21 Impressions Abdomen/Pelvis CT 09/09/24 01:43 EXAM: CT abd pelvis IV con only CLINICAL HISTORY: 93 ml optiray 320, upper abd pain, recent cholecystectomy POD 5 TECHNIQUE: Contiguous axial images were obtained from the level of the diaphragm to the pubic symphysis with intravenous contrast. Coronal and sagittal reconstructions were likewise performed and indicated to increase the sensitivity for detecting clinically relevant pathology. If IV contrast material had not been administered, the likelihood of detecting abnormalities relevant to the patient's condition would have been substantially decreased. CT scan was performed according to ALARA (as low as reasonable achievable). COMPARISON: 09/05/2024 18:42:21 CONDENSER CLEANER FINDINGS: The visualized lung bases are clear. The liver is normal in size and attenuation. No focal liver lesions are seen. There is no intra or extrahepatic biliary ductal dilatation. Hepatic vasculature is patent. History of recent cholecystectomy with surgical clips and postsurgical changes is seen. Mild fluid collection is seen at the operative site in the region of the gallbladder fossa with fat stranding. This could be a normal postoperative fluid collection,. Mild prominence of central intrahepatic biliary radicals and common bile duct. These appear to be postsurgical changes. The spleen, pancreas, and adrenal glands are unremarkable. The kidneys are normal in size and attenuation. There is no hydronephrosis or perinephric fat stranding. No renal calculi or renal masses are identified. The ureters are normal in caliber and no ureteral calculi are seen. The bladder is normal in contour. Pelvic viscera are unremarkable. No focal or diffuse bowel wall thickening or evidence of bowel obstruction is identified. The appendix is visualized in the right lower quadrant and appears within normal limits. Abdominal and pelvic vasculature is patent. No adenopathy are seen. No aggressive appearing osseous lesions are identified. Mild free fluid noted in pelvis IMPRESSION: History of recent cholecystectomy with surgical clips and postsurgical changes is seen. Mild fluid collection is seen at the operative site in the region of the gallbladder fossa with fat stranding. This could be a normal postoperative fluid collection,. -mild reduced compare to prior.- follow up suggested Mild prominence of central intrahepatic biliary radicals and common bile duct. These appear to be postsurgical changes.-stable. Mild free fluid noted in pelvis -stable. Electronically signed by David Gore 09-09-2024 03:42 AM Code Status & VTE Plan VTE Prophylaxis Plan VTE Prophylaxis will be ordered: Yes
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
[2024-09-09] MEDS: HYDROmorphone INJ 2 MG/ML SYR/VIAL IV PRN (10:01)
[2024-09-09 10:13] LABS: Basophils # (auto) 0.02 K/uL (0.00-0.20); Basophils % (auto) 0.3 %; Eosinophils # (auto) 0.02 K/uL (0.00-0.50); Eosinophils % (auto) 0.3 %; Hematocrit (blood only) 36.3 % (37.0-47.0); Hemoglobin 12.3 g/dl (12.0-16.0); Immature Granulocytes # (auto) 0.03 K/uL (0.01-0.20); Immature Granulocytes % (auto) 0.4 %; Lymphocytes # (auto) 0.86 K/uL (1.20-3.40); Lymphocytes % (auto) 11.2 %; Mean Corpuscular Hemoglobin 27.7 pg (25.0-34.0); Mean Corpuscular Hgb Conc 33.9 g/dL (32.0-36.0); Mean Corpuscular Volume 81.8 fL (80.0-100.0); Monocytes # (auto) 0.77 K/uL (0.11-0.59); Neutrophils # (auto) 5.98 K/uL (1.40-6.50); Neutrophils % (auto) 77.8 %; Platelet Count 211 K/uL (130-400); RDW Coefficient of Variation 12.3 % (11.5-14.5); RDW Standard Deviation 36.6 fL (36.4-46.3); Red Blood Count 4.44 M/uL (4.20-5.40); White Blood Count 7.68 K/ul (4.8-10.8)
[2024-09-09 10:32] LABS: Alanine Aminotransferase 66 U/L (7-52); Albumin Level 4.5 gm/dl (3.4-5.0); Alkaline Phosphatase 152 U/L (34-104); Anion Gap 8 (3-11); Aspartate Aminotransferase 31 U/L (13-39); BUN Creatinine Ratio 13.2 (10-20); Bilirubin Direct 0.2 mg/dl (0-0.2); Bilirubin,Total 0.8 mg/dl (0.2-1.0); Blood Urea Nitrogen 7 mg/dl (6-23); Calcium 9.4 mg/dl (8.6-10.3); Carbon Dioxide 25 mmol/L (21-32); Chloride 107 mmol/L (98-107); Glucose 115 mg/dl (70-99(Fasting)); Magnesium 1.7 mg/dl (1.7-2.4); Potassium 4.3 mmol/L (3.5-5.1); Sodium 140 mmol/L (136-145); Total Protein 7.6 gm/dl (6.0-8.3)
[2024-09-09 10:40] LABS: Troponin I High Sensitivity < 2.3 pg/ml (0-14)
--- NOTE | 2024-09-09 11:34 | Nuclear Medicine Report ---
NM hepatobiliary CLINICAL HISTORY: recent cholecystectomy; eval for bile leak TECHNIQUE: Following the intravenous injection of 5.0 mCi of Tc-99m labeled Technetium 99m mebrofeni n, multiple images of the upper abdomen were obtained in the anterior projection with uptake measurem ents of the gallbladder obtained. Comparison: Comparison is made to CT abdomen pelvis 09/09/2024 FINDINGS: Sequential images demonstrate normal uptake in the liver, common bile duct, and small bowel . No leakage of contrast is seen. IMPRESSION: Status post cholecystomy without evidence of bile leak. ACT 112: Negative or not required by law. Electronically signed by: Joshua Galindo M.D. 09/09/2024 11:32 AM
[2024-09-09] MEDS: PANTOprazole 40 MG/10 ML SYR IV SCH (11:42)
[2024-09-09] MEDS: MAGNESIUM OXIDE 400 MG TAB PO SCH (11:43)
--- NOTE | 2024-09-09 11:46 | Electrocardiogram Report ---
Test Reason : Blood Pressure : */* mmHG Vent. Rate : 84 BPM Atrial Rate : 84 BPM P-R Int : 168 ms QRS Dur : 88 ms QT Int : 364 ms P-R-T Axes : 67 55 46 degrees QTcB Int : 430 ms Normal sinus rhythm Left atrial enlargement Incomplete right bundle branch block Borderline ECG When compared with ECG of 03-Sep-2024 08:09, No significant change was found Confirmed by Miguel De Los Santos [id number] on 09/09/2024 11:46:12 AM Referred By: REFERRED SELF Confirmed By: Miguel De Los Santos
[2024-09-09] MEDS: metroNIDAZOLE 500 MG/100 ML BAG IV SCH (11:49)
[2024-09-09] MEDS: buprenorphine HCL 8 MG SUBL SL SCH (11:57)
--- NOTE | 2024-09-09 13:26 | Surgery Progress Note ---
Date of Service September 09, 2024 Assessment & Plan (1) Postoperative abdominal pain: Plan: pt s/p lap zeinab on 09/04/24 here with post op abdominal pain WBC normal at 7, Hbg 12. LFTs show Tb 0.8, ALT 66, Alkp 152, AST, 31, Db 0.2 On exam abdomen soft, mild distended, tender in R sided mid/upper abdomen imaging thus far has not been revealing of obvious source of pain outside of small fluid collection, likely post op in nature in GB fossa HIDA today was negative for bile leak No acute post surgical issues identified From our standpoint can re-initiate diet as tolerates Can consider a bowel regimen for lack of bowel function since surgery OOB ambulating, supportive care Admission and Anticipated Discharge Date Admission Date: September 09, 2024 Subjective Patient reports ongoing pain in R sided abdomen towards R flank region. No urinary complaints. Notes some nausea with pain. No recent flatus/BM. Says she feels like she cannot go home in pain like this. Physical Exam Physical Exam: awake/alert, tearful Respiratory: normal respiratory effort Gastrointestinal (Abdomen): Inspection/Auscultation: + abdomen distended (mild) and + abdominal surgical incision (c/d/i with skin glue and no signs of infection) Percussion/Palpation: + abdomen tender (tender in the R mid/upper abdomen) and abdomen soft Results & Data Vital Signs (Past 12 Hours) Vital Signs Temp Pulse Pulse Resp BP BP Pulse Ox 09/09/24 12:00 85 18 149/87 H 96 09/09/24 11:42 94 H 18 150/93 H 97 09/09/24 09:33 80 18 158/86 H 96 09/09/24 08:33 74 16 150/89 H 97 09/09/24 08:21 84 20 150/88 H 97 09/09/24 08:21 86 20 150/88 H 97 09/09/24 07:30 97 H 18 142/88 H 98 09/09/24 07:27 94 H 14 142/88 H 97 09/09/24 06:00 88 18 128/80 97 09/09/24 05:26 113 H 09/09/24 04:26 91 H 18 150/89 H 97 09/09/24 02:35 97 09/09/24 02:35 85 18 140/90 97 09/09/24 02:02 99.9 F H 98 H 18 142/91 H 97 09/09/24 01:36 97 H O2 Del Method 09/09/24 12:00 Room Air 09/09/24 11:42 Room Air 09/09/24 09:33 Room Air 09/09/24 08:33 Room Air 09/09/24 08:21 Room Air 09/09/24 08:21 Room Air 09/09/24 07:30 09/09/24 07:27 Room Air 09/09/24 06:00 Room Air 09/09/24 05:26 09/09/24 04:26 Room Air 09/09/24 02:35 Room Air 09/09/24 02:35 Room Air 09/09/24 02:02 Room Air 09/09/24 01:36 PG Care Time/CCT Total # of Minutes Spent Total Time Spent with Patient: Total time spent is greater than 50% in coordination of care (as documented) at patient's floor/unit and/or counseling patient: Coding Level of Care Code 53141 Post Operative Follow-Up Diagnoses Postoperative abdominal pain R10.9; G89.18
[2024-09-09] MEDS: POLYETHYLENE (MIRALAX) 17 GM PACK PO SCH (15:21)
[2024-09-09] MEDS: buprenorphine HCL 2 MG SUBL SL SCH (15:43)
[2024-09-09] MEDS ORDERED: Nursing to Pharmacy Communication SCH (19:00)
[2024-09-09] MEDS: ADVANCED PROBIOTIC 625 MG CAPSULE PO SCH (20:52)
[2024-09-09] MEDS: KETOROLAC TROMETHAMINE 15 MG/ML VIAL IV ONE (21:47)
[2024-09-10] MEDS: cefTRIAXone SODIUM 2,000 MG/50 ML BAG IV SCH (05:02)
[2024-09-10] MEDS ORDERED: KETOROLAC TROMETHAMINE 10 MG TABLET PO PRN (09:47)
[2024-09-10] MEDS: SOD PHOSPHATE/SOD BIPHOSPHATE ENEMA 132 ML BTL PR STA ×2 (09:53→15:09)
[2024-09-10] MEDS ORDERED: KETOROLAC TROMETHAMINE 15 MG/ML VIAL IM PRN (10:09)
[2024-09-10] MEDS: KETOROLAC TROMETHAMINE 15 MG/ML VIAL ONE (10:14)
[2024-09-10] MEDS ORDERED: traMADol HCL 50 MG TABLET PO PRN (10:18)
[2024-09-10] MEDS: KETOROLAC TROMETHAMINE 10 MG TABLET PO SCH (12:31)
--- NOTE | 2024-09-10 12:33 | Surgery Progress Note ---
Date of Service September 10, 2024 Assessment & Plan (1) Postoperative abdominal pain: Plan: pt s/p lap zeinab on 09/04/24 here with post op abdominal pain HIDA negative for bile leak On abx for small likely post op fluid collection in GB fossa May advance diet as tolerates. started on miralax for bowel function Pain management consult is pending for their eval She has undergone an upper scope a couple weeks ago No acute surgical needs noted May dispo when okay w/ medicine and f/u with dr. self in 1-2 weeks Admission and Anticipated Discharge Date Admission Date: September 09, 2024 Subjective Patient with reports of ongoing abdominal pain. Moved from R/mid upper abdomen to more L upper abdomen, into her L neck/shoulder and kidney region. She has lack of flatus/BM of recent. Otherwise reports pain is similar but worse than when she came in prior to her surgery. Physical Exam Physical Exam: awake/alert, tearful Respiratory: normal respiratory effort Gastrointestinal (Abdomen): Inspection/Auscultation: + abdomen distended (mild) and + abdominal surgical incision (c/d/i with skin glue and no signs of infection) Percussion/Palpation: + abdomen tender (tender in the R mid/upper abdomen) and abdomen soft Results & Data Vital Signs (Past 12 Hours) Vital Signs Temp Pulse Pulse Resp BP Pulse Ox O2 Del Method 09/10/24 11:50 98.2 F 86 18 138/84 95 Room Air 09/10/24 07:43 98.8 F 94 H 16 133/83 95 Room Air 09/10/24 07:40 93 H 09/10/24 02:51 98.4 F 90 16 142/81 H 93 Room Air PG Care Time/CCT Total # of Minutes Spent Total Time Spent with Patient: Total time spent is greater than 50% in coordination of care (as documented) at patient's floor/unit and/or counseling patient: Coding Level of Care Code 22422 SUB INP/OBS CARE 09/27MIN Diagnoses Postoperative abdominal pain R10.9; G89.18
[2024-09-10] MEDS: SOD PHOSPHATE/SOD BIPHOSPHATE ENEMA 132 ML BTL PR ONE (15:12)
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
[2024-09-11] MEDS: ACETAMINOPHEN 1,000 MG/100 ML VIAL IV STA (00:47)
[2024-09-11] MEDS: KETOROLAC TROMETHAMINE 15 MG/ML VIAL IV ONE (03:08)
[2024-09-11 07:58] VITALS: RESP 18; TEMP 98.2; O2SAT 93
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
[2024-09-11] MEDS: PANTOprazole 40 MG TAB PO SCH (08:33)
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
[2024-09-11 11:15] VITALS: BP 144/86; PULSE 114
[2024-09-11] MEDS: buprenorphine HCL 2 MG SUBL SL SCH (12:11)
[2024-09-11] MEDS ORDERED: BUPRENORPHINE/NALOXONE 8/2 MG TAB SL SCH (13:00)
== END 2024-09-11 14:02 | disposition home or self-care (01) | DRG 948 ==
LOC: ED 01:30 → EDINP 07:12 → 2N 09:05

== ENCOUNTER 2025-07-18 08:44 | Inpatient (IN) ==
[2025-07-18 09:12] LABS: Hematocrit (blood only) 40.5 % (37.0-47.0); Hemoglobin 14.0 g/dL (12.0-16.0); Mean Corpuscular Hemoglobin 27.9 pg (25.0-34.0); Mean Corpuscular Volume 80.8 fL (80.0-100.0); Platelet Count 184 K/uL (130-400); RDW Standard Deviation 37.9 fL (36.4-46.3); Red Blood Count 5.01 M/uL (4.20-5.40); White Blood Count 14.88 K/ul (4.8-10.8)
--- NOTE | 2025-07-18 09:21 | Emergency Department Note ---
Impression & Plan Multifocal pneumonia, Acute hypoxic respiratory failure ED Provider Note NAME: OPAL SANTIZO AGE: 39 SEX: F : 1985 ARRIVES VIA: Ambulance INFORMANT: Patient, ED PROVIDER(S): Tasha Smiley MD CHIEF COMPLAINT: Sore throat, headache, shortness of breath HPI: This is a 39-year-old female seen for headache, shortness of breath, sore throat. Patient notes that she beginning symptoms on Sunday, 3 days ago. She has had progressive worsening of symptoms. She notes shortness of breath, slight chest pain, headache, sore throat. She states it feels like "swallowing glass ". She notes she took leftover antibiotics at home without improvement of symptoms. ROS: See above HPI for pertinent positives & negatives. A total of 10 systems reviewed and were otherwise negative. PAST MEDICAL HISTORY: See Below PAST SURGICAL HISTORY: See Below FAMILY HISTORY: See Below SOCIAL HISTORY: See Below HOME MEDICATIONS: See Below ALLERGIES: See Below VITALS: See Below PHYSICAL EXAMINATION: General: resting comfortably in no acute distress Head: Normocephalic and atraumatic Eyes: Normal inspection, extraocular muscles intact Ear, nose, throat: Normal external exam Neck: Normal range of motion Respiratory: Rhonchi diffusely Cardiovascular: Regular rate/rhythm, no murmur GI: soft, nontender, no guarding or rebound Extremities: nontender, moves all extremities Neuro: The patient awake and alert, appropriately conversive, no focal deficits, symmetric faces Skin: Warm, dry, and intact MEDICAL DECISION MAKING: This is a 39-year-old female presenting for headache, shortness of breath, sore throat. With patient's current tachycardia and borderline hypoxia with URI type symptoms, consider pneumonia, sepsis, ACS, pleural effusions, PE - Patient has leukocytosis to 14 - Chest x-ray reveals multifocal pneumonia upon independent interpretation - Patient becomes hypoxic with ambulation dropping to about 87%. In addition she is persistently tachycardic between 115-125. - While she does not appear overtly septic, will admit for multifocal pneumonia, hypoxia. Started on ceftriaxone and azithromycin IV - Care discussed with Dr. Wan for admission Differential diagnosis: Pneumonia, sepsis, pleural effusion, PE Diagnostics interpreted by me: ECG: ECG independently interpreted by me with sinus tachycardia rate of 114, normal axis, normal NH, normal QRS, normal QTc, no ST segment elevations consistent with STEMI criteria Cardiac Monitoring: An order was placed for continuous cardiac monitoring. The monitor shows a rate of 120 with sinus tachycardia rhythm. Past Med/Surg History Problem List (Updated 07/18/25 @ 17:00 by Tasha Smiley MD) Acute hypoxic respiratory failure (Acute) Multifocal pneumonia (Acute) Constipation Opioid dependence on agonist therapy Abdominal pain (Acute) Chronic pain Cholelithiasis (Acute) Abdominal pain, epigastric (Acute) Acute cholecystitis Cervical radiculopathy (Acute) Headache (Acute) Pharyngitis (Acute) Pharyngitis (Acute) Post-dates complicated by subutex maintenance, antepartum Medical History Esophagitis Social History Smoking Status: Former smoker Tobacco Type: Cigarettes Second Hand Exposure: Yes; Do You Dip or Chew Tobacco: No; Tobacco Cessation Education Requested by Patient: No Hx Alcohol Use: Yes Hx Substance Use: Yes Preferred Language: Guyanese Communication Ability: Effective [employer]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 Beliefs That Will Affect Care: None Current Living Situation: Family Other Information That Helps Us Care for You: No Feels Safe at Home: Yes Safety Concerns: Feels Safe At This Time Assistive Devices: Denture - Upper Allergies Allergies Allergy/AdvReac Type Severity Reaction Status Date / Time amoxicillin Allergy Intermediate RASH; pt Verified 09/03/24 11:52 tolerated Penicillin G before Penicillins Allergy Mild RASH Verified 09/03/24 11:52 amitriptyline Allergy Unknown RASH Verified 09/03/24 11:52 gabapentin Allergy Unknown RASH Verified 09/03/24 11:52 nortriptyline Allergy Unknown RASH Verified 09/03/24 11:52 tramadol Allergy Unknown HIVES Verified 09/03/24 11:52 almotriptan Allergy Hives Verified 07/18/25 14:15 Home Meds Home Medications Medication Instructions Recorded Confirmed Lactobacillus 40-Bifidobact 1 cap PO HS 01/07/22 07/18/25 3-S.thermophilus 100 billion cell capsule (Probiotic) pantoprazole 40 mg tablet,delayed 40 mg PO QAM PRN gerd 01/07/22 07/18/25 release buprenorphine HCl 8 mg sublingual 8 mg sublingual BID 09/03/24 07/18/25 tablet erenumab-aooe 140 mg/mL 140 mg subcut MONTHLY 09/03/24 07/18/25 subcutaneous auto-injector (Aimovig Autoinjector) magnesium oxide 400 mg (241.3 mg 400 mg PO QAM 09/03/24 07/18/25 magnesium) tablet dextroamphetamine-amphetamine 5 mg 0 mg PO QPM 07/18/25 07/18/25 tablet docusate sodium 100 mg tablet 100 mg PO DAILY 07/18/25 07/18/25 escitalopram oxalate 5 mg tablet 5 mg PO DAILY 07/18/25 07/18/25 multivitamin 1 tab PO DAILY 07/18/25 07/18/25 Previous Rx's Medication Instructions Recorded ketorolac 10 mg tablet 10 mg PO QID PRN pain #40 tabs 09/11/24 Results & Data (ED) Vital Signs Vital Signs - 24 hr 07/18/25 08:54 07/18/25 09:09 07/18/25 09:12 Temperature 36.9 C Temperature Source Oral Pulse Rate 120 H 127 H Pulse Rate from SpO2 Sensor 128 H Respiratory Rate 14 16 Blood Pressure 153/92 H 144/78 H Blood Pressure Mean 112 100 Blood Pressure Position Semi-fowlers Pulse Oximetry 92 92 93 Oxygen Delivery Method Room Air Room Air Sepsis Recent Fever Within 48 Hours No Sepsis New/Unexplained Change in Mental Status N/A Sepsis Action Taken by Nursing No Action Required 07/18/25 09:30 07/18/25 10:00 07/18/25 10:13 Temperature Temperature Source Pulse Rate 118 H 118 H 118 H Pulse Rate from SpO2 Sensor 118 H 118 H Respiratory Rate 22 20 Blood Pressure 115/72 140/71 Blood Pressure Mean 86 94 Blood Pressure Position Pulse Oximetry 92 92 Oxygen Delivery Method Sepsis Recent Fever Within 48 Hours Sepsis New/Unexplained Change in Mental Status Sepsis Action Taken by Nursing 07/18/25 10:30 07/18/25 11:00 07/18/25 11:30 Temperature Temperature Source Pulse Rate 118 H 115 H 117 H Pulse Rate from SpO2 Sensor 118 H 116 H 116 H Respiratory Rate 16 21 19 Blood Pressure 105/77 126/75 117/76 Blood Pressure Mean 86 92 89 Blood Pressure Position Pulse Oximetry 91 94 93 Oxygen Delivery Method Sepsis Recent Fever Within 48 Hours Sepsis New/Unexplained Change in Mental Status Sepsis Action Taken by Nursing 07/18/25 12:00 Temperature Temperature Source Pulse Rate 123 H Pulse Rate from SpO2 Sensor 121 H Respiratory Rate 17 Blood Pressure 119/71 Blood Pressure Mean 87 Blood Pressure Position Pulse Oximetry 91 Oxygen Delivery Method Sepsis Recent Fever Within 48 Hours Sepsis New/Unexplained Change in Mental Status Sepsis Action Taken by Nursing Laboratory Data 07/18/25 08:52 07/18/25 08:52 Lab Results 07/18/25 07/18/25 Range/Units 08:52 09:49 WBC 14.88 H (4.8-10.8) K/ul RBC 5.01 (4.20-5.40) M/uL Hgb 14.0 (12.0-16.0) g/dL Hct 40.5 (37.0-47.0) % MCV 80.8 (80.0-100.0) fL MCH 27.9 (25.0-34.0) pg MCHC 34.6 (32.0-36.0) g/dL RDW Std Deviation 37.9 (36.4-46.3) fL RDW Coeff of Yennifer 12.9 (11.5-14.5) % Plt Count 184 (130-400) K/uL MPV 11.0 (9.4-12.4) fL Immature Gran % (Auto) 0.7 % Neut % (Auto) 89.1 % Lymph % (Auto) 2.6 % [place] % (Auto) 6.0 % Eos % (Auto) 1.1 % Baso % (Auto) 0.5 % Neut # (Auto) 13.25 H (1.40-6.50) K/uL Lymph # (Auto) 0.38 L (1.20-3.40) K/uL [place] # (Auto) 0.90 H (0.11-0.59) K/uL Eos # (Auto) 0.17 (0.00-0.50) K/uL Baso # (Auto) 0.07 (0.00-0.20) K/uL Immature Gran # (Auto) 0.11 (0.01-0.20) K/uL Dohle Bodies 1+ Sodium 136 (136-145) mmol/L Potassium 3.6 (3.5-5.1) mmol/L Chloride 102 (98-107) mmol/L Carbon Dioxide 24 (21-32) mmol/L Anion Gap 10 (3-11) BUN 16 (6-23) mg/dl Creatinine 0.71 (0.6-1.2) mg/dl Est Cr Clr Drug Dosing 118.7 ml/min eGFR 111.54 BUN/Creatinine Ratio 22.5 H (10-20) Glucose 131 H (70-99(Fasting)) mg/dl Calcium 9.1 (8.6-10.3) mg/dl Total Bilirubin 1.1 H (0.2-1.0) mg/dl AST 18 (13-39) U/L ALT 26 (7-52) U/L Alkaline Phosphatase 179 H (34-104) U/L Troponin I High Sens 16.3 H (0-14) pg/ml Total Protein 7.2 (6.0-8.3) gm/dl Albumin 3.6 (3.4-5.0) gm/dl Globulin 3.6 (2.5-4.0) gm/dl Albumin/Globulin Ratio 1.0 (0.9-2) Urine Color Dark Yellow Urine Appearance Cloudy A (Clear) Urine pH 5.5 (4.5-7.5) Ur Specific [place] 1.040 H (1.000-1.030) Urine Protein 3+ H (Negative) Urine Glucose (UA) Negative (Negative) Urine Ketones Trace H (Negative) Urine Blood Trace H (Negative) Urine Nitrite Negative (Negative) Urine Bilirubin 1+ H (Negative) Urine Urobilinogen Negative (Negative) Ur Leukocyte Esterase Negative (Negative) Urine WBC (Auto) 0-5 (0-5) /hpf Urine RBC (Auto) 3-5 H (0-2) /hpf U Hyaline Cast (Auto) 0-2 (0-2) /lpf U Epithel Cells (Auto) 11-20 H (0-2) /hpf Urine Bacteria (Auto) 1+ H (None Seen) Urine Comment Adenovirus (PCR) Not Detected (NotDetected) B. pertussis DNA (PCR) Not Detected (NotDetected) B.parapertussis DNA PCR Not Detected (NotDetected) C. pneumoniae DNA (PCR) Not Detected (NotDetected) Coronavirus OC43 (PCR) Not Detected (NotDetected) Coronavirus HKU1 (PCR) Not Detected (NotDetected) Coronavirus 229E (PCR) Not Detected (NotDetected) SARS-CoV-2 (PCR) Not Detected (NotDetected) Coronavirus NL63 (PCR) Not Detected (NotDetected) Human Metapneumovir PCR Not Detected (NotDetected) Influenza Type A (PCR) Not Detected (NotDetected) Influenza Type B (PCR) Not Detected (NotDetected) M. pneumoniae (PCR) Not Detected (NotDetected) Parainfluenza 1 (PCR) Not Detected (NotDetected) Parainfluenza 2 (PCR) Not Detected (NotDetected) Parainfluenza 3 (PCR) Not Detected (NotDetected) Parainfluenza 4 (PCR) Not Detected (NotDetected) RSV (PCR) Not Detected (NotDetected) Entero/Rhino (PCR) Not Detected (NotDetected) Group A Strep (PCR) NOT DETECTED (NotDetected) Administered Medications Benzonatate (Benzonatate 100 Mg Capsule) 100 mg PO TID EZEQUIEL Stop: 08/17/25 13:59 Last Admin: 07/18/25 15:02 Dose: 100 mg Documented By: REANNA Buprenorphine HCl (Buprenorphine Hcl 2 Mg Subl) 2 mg SL QID [facility] Stop: 08/17/25 16:59 Last Admin: 07/18/25 16:45 Dose: 2 mg Documented By: REANNA Guaifenesin (Guaifenesin 600 Mg Tabcr) 600 mg PO Q12 EZEQUIEL Stop: 08/17/25 12:34 Last Admin: 07/18/25 15:27 Dose: 600 mg Documented By: REANNA Sodium Chloride (Nss) 1,000 mls @ 100 mls/hr IV .Q10H EZEQUIEL Stop: 07/19/25 08:29 Last Admin: 07/18/25 14:40 Dose: 100 mls/hr Documented By: REANNA Discontinued Medications Sodium Chloride (Nss) 1,000 mls @ 999 mls/hr IV .Q1H1M ONE Stop: 07/18/25 10:16 Last Infusion: 07/18/25 11:00 Dose: Infused Documented By: Admin: 07/18/25 09:44 Dose: 999 mls/hr Documented By: EMMA Ceftriaxone Sodium (Rocephin) 2,000 mg in 50 mls @ 100 mls/hr IV NOW STA Stop: 07/18/25 10:08 Last Infusion: 07/18/25 10:28 Dose: Infused Documented By: Admin: 07/18/25 09:44 Dose: 100 mls/hr Documented By: MMF Azithromycin (Zithromax) 500 mg in 255 mls @ 127.5 mls/hr IV NOW ONE Stop: 07/18/25 11:38 Last Infusion: 07/18/25 14:55 Dose: Infused Documented By: Admin: 07/18/25 11:00 Dose: 127.5 mls/hr Documented By: MMF Acetaminophen (Ofirmev) 1,000 mg in 100 mls @ 400 mls/hr IV NOW STA Stop: 07/18/25 11:20 Last Infusion: 07/18/25 11:54 Dose: Infused Documented By: Admin: 07/18/25 11:38 Dose: 400 mls/hr Documented By: MMF Ketorolac Tromethamine (Ketorolac Tromethamine 15 Mg/Ml Vial) 15 mg IV NOW ONE Stop: 07/18/25 14:52 Last Admin: 07/18/25 15:02 Dose: 15 mg Documented By: SEK Imaging Data Radiologist's Impression: Chest X-Ray 07/18/25 09:03 SINGLE VIEW CHEST CLINICAL HISTORY: Dyspnea. Fever FINDINGS: An AP, portable, upright chest radiograph is compared to study dated 09/03/2024. The cardiomediastinal silhouette is unremarkable. There is multifocal airspace consolidation, greatest in the right upper lobe and in the left mid to lower lung. No large pleural effusion or pneumothorax is seen. The bony thorax is grossly intact. IMPRESSION: Multifocal airspace consolidation is typical for pneumonia. Clinical correlation will be required and radiographic follow-up to resolution is recommended. ACT 112: Negative or not required by law. Electronically signed by: Luis Steiner M.D. 07/18/2025 9:21 AM Discharge Plan Visit Data Chief Complaint: Illness Stated Complaint: illness ED Provider: Tasha Smiley Discharge Problem: Multifocal pneumonia, Acute hypoxic respiratory failure Patient Disposition: Admitted As Inpatient Condition: Fair Discharge Instructions Interventions: ED Discharge Assessment Last Done: 07/18/25 14:02
--- NOTE | 2025-07-18 09:22 | XRay Report ---
SINGLE VIEW CHEST CLINICAL HISTORY: Dyspnea. Fever FINDINGS: An AP, portable, upright chest radiograph is compared to study dated 09/03/2024. The cardiome diastinal silhouette is unremarkable. There is multifocal airspace consolidation, greatest in the rig ht upper lobe and in the left mid to lower lung. No large pleural effusion or pneumothorax is seen. T he bony thorax is grossly intact. IMPRESSION: Multifocal airspace consolidation is typical for pneumonia. Clinical correlation will be required and radiographic follow-up to resolution is recommended. ACT 112: Negative or not required by law. Electronically signed by: Luis Steiner M.D. 07/18/2025 9:21 AM
[2025-07-18 09:29] LABS: Alanine Aminotransferase 26.0 U/L (7-52); Albumin Globulin Ratio 1.0 (0.9-2); Albumin Level 3.6 gm/dl (3.4-5.0); Alkaline Phosphatase 179.0 U/L (34-104); Anion Gap 10.0 (3-11); Bilirubin,Total 1.1 mg/dl (0.2-1.0); Blood Urea Nitrogen 16.0 mg/dl (6-23); Calcium 9.1 mg/dl (8.6-10.3); Carbon Dioxide 24.0 mmol/L (21-32); Chloride 102.0 mmol/L (98-107); Creatinine Clr Calc Pharmacy 118.7 ml/min; Globulin 3.6 gm/dl (2.5-4.0); Glucose 131.0 mg/dl (70-99(Fasting)); Potassium 3.6 mmol/L (3.5-5.1); Sodium 136.0 mmol/L (136-145); Total Protein 7.2 gm/dl (6.0-8.3)
[2025-07-18 09:36] LABS: Dohle Bodies 1+; Immature Granulocytes # (auto) 0.11 K/uL (0.01-0.20); Immature Granulocytes % (auto) 0.7 %
[2025-07-18] MEDS: SODIUM CHLORIDE 0.9% 1,000 ML IV ONE (09:44)
[2025-07-18] MEDS: cefTRIAXone SODIUM 2,000 MG/50 ML BAG IV STA (09:44)
[2025-07-18 10:16] LABS: Chlamydia pneumoniae PCR Not Detected (NotDetected); Coronavirus 229E PCR Not Detected (NotDetected); Coronavirus CoV-2 (COVID19)PCR Not Detected (NotDetected); Coronavirus HKU1 PCR Not Detected (NotDetected); Coronavirus NL63 PCR Not Detected (NotDetected); Coronavirus OC43PCR Not Detected (NotDetected); Human Metapneumovirus PCR Not Detected (NotDetected); Parainfluenza Virus 1 PCR Not Detected (NotDetected); Parainfluenza Virus 2 PCR Not Detected (NotDetected); Parainfluenza Virus 3 PCR Not Detected (NotDetected); Parainfluenza Virus 4 PCR Not Detected (NotDetected); Respiratory Syncytial VirusPCR Not Detected (NotDetected); Rhinovirus/Enterovirus PCR Not Detected (NotDetected)
[2025-07-18 10:50] LABS: Appearance Urine Cloudy (Clear); Bacteria Urine Automated 1+ (None Seen); Cast Urine Automated 0-2 /lpf (0-2); Glucose Urine UA Negative (Negative); WBC Urine Automated 0-5 /hpf (0-5)
[2025-07-18] MEDS: AZITHROMYCIN 500 MG/255 ML BAG IV ONE (11:00)
[2025-07-18] MEDS: ACETAMINOPHEN 1,000 MG/100 ML VIAL IV STA (11:38)
[2025-07-18] MEDS ORDERED: CHLORASEPTIC (PHENOL) 1.4% SOLN 180 ML BTL MT PRN (12:30)
[2025-07-18] MEDS ORDERED: MAGNESIUM HYDROXIDE SUSP 30 ML UDC PO PRN (12:33)
[2025-07-18] MEDS ORDERED: ONDANSETRON INJ 2 MG/ML 2 ML VIAL IV PRN (12:33)
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
[2025-07-18] MEDS: SODIUM CHLORIDE 0.9% 1,000 ML IV SCH (14:40)
[2025-07-18] MEDS: BENZONATATE 100 MG CAPSULE PO SCH (15:02)
[2025-07-18] MEDS: KETOROLAC TROMETHAMINE 15 MG/ML VIAL IV ONE ×2 (15:02→20:11)
[2025-07-18] MEDS: guaiFENesin 600 MG TABCR PO SCH (15:27)
[2025-07-18] MEDS ORDERED: VANCOMYCIN CONSULT ACTIVE ONE (19:47)
--- NOTE | 2025-07-18 19:48 | Communication Note ---
Date of Service: July 18, 2025 Made aware by RN of persistent tachycardia, fever, and low O2. No aspiration concerns as per RN. Chest x-ray as per my interpretation progressive bilateral infiltrates MRSA positive Add vancomycin to regimen
[2025-07-18] MEDS ORDERED: VANCOMYCIN HCL / NSS 1,000 MG/270 ML BAG IV ONE (19:51)
[2025-07-18] MEDS ORDERED: VANCOMYCIN CONSULT ACTIVE PRN (19:51)
[2025-07-18 20:04] LABS: Base Excess VBG 2.6 mEq/L; HCO3 VBG 27 mmol/L; Oxygen Saturation VBG < 60.0 %; PCO2 VBG 41 mmHg (38-50); PO2 VBG 23 mmHg; pH VBG 7.43 (7.36-7.41)
[2025-07-18] MEDS: METOPROLOL TARTRATE 1 MG/ML VIAL IV STA (20:12)
[2025-07-18 20:24] LABS: Magnesium 2.1 mg/dl (1.7-2.4)
[2025-07-18] MEDS: POTASSIUM CHLORIDE PWD 20 MEQ PACK PO STA (20:47)
--- NOTE | 2025-07-18 20:50 | XRay Report ---
Exam(s): XR CXR 1 VIEW EXAM: XR Chest, 1 View CLINICAL HISTORY: Reason for exam: low o2. TECHNIQUE: Frontal view of the chest. COMPARISON: Chest radiograph on same-day FINDINGS: Hardware: None. Lungs/pleura: Similar to slightly increased consolidations in the right upper lobe and left lower lung. Increased opacity in the right lower lung. Heart/mediastinum: Normal. No cardiomegaly. Soft tissues: Unremarkable. Bones: No acute fracture. Upper abdomen: Normal. IMPRESSION: Similar to slightly increased consolidations in the right upper lobe and left lower lung. Increased opacity in the right lower lung. Electronically signed by: Mari Cortés M.D. 07/18/25 20:48 PM
[2025-07-18] MEDS: VANCOMYCIN HCL 2,000 MG in SODIUM CHLORIDE 0.9% 500 ML IV ONE (21:00)
[2025-07-18] MEDS: ADVANCED PROBIOTIC 625 MG CAPSULE PO SCH (21:07)
[2025-07-18] MEDS: POTASSIUM CHLORIDE CRTAB 20 MEQ TABCR PO STA (21:15)
[2025-07-18 21:16] LABS: Partial Thromboplastin Time 34 Seconds (21-31)
[2025-07-18] MEDS: HEPARIN SOD 5,000 UNIT/0.5 ML VIAL SQ SCH (21:16)
[2025-07-19] MEDS: ACETAMINOPHEN 1,000 MG/100 ML VIAL IV STA (00:20)
[2025-07-19] MEDS: NSS + 20MEQ KCL 20 MEQ/1,000 ML BAG IV ONE ×2 (00:21→05:39)
[2025-07-19] MEDS: VANCOMYCIN HCL 1,250 MG in SODIUM CHLORIDE 0.9% 250 ML IV SCH (06:23)
[2025-07-19] MEDS: KETOROLAC TROMETHAMINE 15 MG/ML VIAL IV ONE ×2 (06:24→13:59)
[2025-07-19] MEDS: DOCUSATE SODIUM 100 MG CAP PO SCH (08:13)
[2025-07-19] MEDS: ACETAMINOPHEN 325 MG TAB PO PRN (08:13)
[2025-07-19] MEDS: MAGNESIUM OXIDE 400 MG TAB PO SCH (08:14)
[2025-07-19] MEDS: MULTIVITAMIN TAB PO SCH (08:15)
[2025-07-19] MEDS: AZITHROMYCIN 250 MG in DEXTROSE 5% 250 ML IV SCH (08:16)
[2025-07-19 08:25] LABS: Alanine Aminotransferase 14.0 U/L (7-52); Albumin Globulin Ratio 1.0 (0.9-2); Albumin Level 2.9 gm/dl (3.4-5.0); Alkaline Phosphatase 126.0 U/L (34-104); Anion Gap 5.0 (3-11); Bilirubin,Total 0.5 mg/dl (0.2-1.0); Blood Urea Nitrogen 14.0 mg/dl (6-23); Calcium 8.1 mg/dl (8.6-10.3); Carbon Dioxide 23.0 mmol/L (21-32); Chloride 110.0 mmol/L (98-107); Creatinine Clr Calc Pharmacy 170.2 ml/min; Globulin 2.8 gm/dl (2.5-4.0); Glucose 104.0 mg/dl (70-99(Fasting)); Magnesium 2.1 mg/dl (1.7-2.4); Potassium 3.9 mmol/L (3.5-5.1); Sodium 138.0 mmol/L (136-145); Total Protein 5.7 gm/dl (6.0-8.3)
[2025-07-19 08:36] LABS: Hematocrit (blood only) 32.2 % (37.0-47.0); Hemoglobin 11.1 g/dL (12.0-16.0); Mean Corpuscular Hemoglobin 28.2 pg (25.0-34.0); Mean Corpuscular Volume 81.9 fL (80.0-100.0); Platelet Count 166 K/uL (130-400); RDW Standard Deviation 39.9 fL (36.4-46.3); Red Blood Count 3.93 M/uL (4.20-5.40); White Blood Count 12.31 K/ul (4.8-10.8)
[2025-07-19] MEDS ORDERED: POTASSIUM PHOS 3 MMOL/1 ML INFUSION IV STA (09:49)
--- NOTE | 2025-07-19 09:59 | Hospitalist Progress Note ---
<Statement entered by Kendrick Campa, DO - 07/19/25 14:27> I have seen and examined the patient and have discussed the case with the advance practice provider. I have reviewed the advanced practitioner's documentation, and I agree with, and take responsibility for that plan of care. Patient states she is feeling a little bit better. Does admit to being extremely rundown. Personally reviewed CT chest images, dense consolidation right middle lobe, right lower lobe, left lower lobe WBCs improved, oxygen requirement improving. Continue antibiotics If patient does not continue to improve may need to consider pulmonary consultation for possible bronchoscopy Follow cultures Check urine Legionella Will need to clarify a risk factor history, may need to consider HIV testing with multilobar pneumonia and history of opiate misuse. I spent a total of 24 minutes coordinating, documenting, and providing care for this patient excluding time spent by another provider/QHP. Date of Service July 19, 2025 Assessment & Plan (1) Multifocal pneumonia: Plan This is a 39yo F with PMH of history of opioid use now on Suboxone, mood disorder, migraine, GERD and other medical problems listed below who presents with sepsis 2/2 multifocal pneumonia. Sepsis POA- WBC and heart rate elevated at presentation meeting SIRs criteria, source: multifocal pneumonia Multifocal pneumonia CXR Similar to slightly increased consolidations in the right upper lobe and left lower lung. Increased opacity in the right lower lung CT chest pending for better visualization Continue Azithromycin, Rocephin MRSA +, vanco added Supportive care with Chloraseptic spray, Tessalon Perle, Mucinex Follow cultures Continue fluids Hypophosphatemia Phos 1.4 in setting of poor intake, repleted Chronic pain: Continue home dose of Subutex, pt states she take 2 mg qid as 8 mg dose upsets her stomach Migraine: Patient on monthly injection, continue as prior ADHD: pt holding her home meds since 3-4 days due to her high heart rate. Pt reported HR went upto 160s at home. Resume once acute illness is resolved DVT Ppx: SQ heparin Code status: FULL PCP: Shanna Tomlinson Dispo: Admitted to PCU, downgrading to med/surg Patient seen in collaboration with Dr. Campa. Please see addendum. I spent a total of 50 minutes coordinating, documenting, and providing care for this patient excluding time spent in the performance of separately billed services or time spent by another provider/QHP. Admission and Anticipated Discharge Date Admission Date: July 18, 2025 Subjective Patient seen and examined in 220-1. Has felt ill with sore throat, chills and congestion for 5 days. Feeling extremely rundown and short of breath, prompting evaluation in ED. Feeling slightly better overnight with IV fluids and antibiotics. Ate breakfast this morning, which is the most she has eaten in days. No lightheadedness, chest pain, nausea, vomiting, abdominal pain, dysuria, diarrhea or constipation. Review of Systems Review of Systems: At least ten systems reviewed and negative except as noted in the HPI. Physical Exam Physical Exam: Gen: WD/WN, NAD, resting in bed, appears ill, A&Ox3 HEENT: Normocephalic, atraumatic, mucous membranes moist Lung: + coarse, diminished breath sounds L base, RUL Heart: tachycardic rate, regular rhythm Abdomen: Soft, NT, ND +BS x 4 Extremities: no edema Skin: Warm, no rash Results & Data Results & Data Vital Signs (Past 12 Hours) Vital Signs Temp Pulse Resp BP Pulse Ox O2 Del Method O2 Flow Rate 07/19/25 08:21 37.2 C 110 H 20 126/77 92 Nasal Cannula 1 07/19/25 02:57 37.0 C 109 H 18 116/68 91 Nasal Cannula 1 07/18/25 22:29 37.9 C H 121 H 20 119/69 91 Nasal Cannula 1 Laboratory Results Short CBC 07/19/25 Range/Units 07:33 WBC 12.31 H (4.8-10.8) K/ul Hgb 11.1 L D (12.0-16.0) g/dL Hct 32.2 L (37.0-47.0) % Plt Count 166 (130-400) K/uL BMP 07/19/25 07:33 Sodium 138 Potassium 3.9 Chloride 110 H Carbon Dioxide 23 BUN 14 Creatinine 0.50 L Glucose 104 H Calcium 8.1 L Liver Function 07/19/25 Range/Units 07:33 Total Bilirubin 0.5 D (0.2-1.0) mg/dl AST 11 L (13-39) U/L ALT 14 (7-52) U/L Alkaline Phosphatase 126 H (34-104) U/L Albumin 2.9 L (3.4-5.0) gm/dl Diagnostic Findings Chest X-Ray 07/18/25 09:03 SINGLE VIEW CHEST CLINICAL HISTORY: Dyspnea. Fever FINDINGS: An AP, portable, upright chest radiograph is compared to study dated 09/03/2024. The cardiomediastinal silhouette is unremarkable. There is multifocal airspace consolidation, greatest in the right upper lobe and in the left mid to lower lung. No large pleural effusion or pneumothorax is seen. The bony thorax is grossly intact. IMPRESSION: Multifocal airspace consolidation is typical for pneumonia. Clinical correlation will be required and radiographic follow-up to resolution is recommended. ACT 112: Negative or not required by law. Electronically signed by: Luis Steiner M.D. 07/18/2025 9:21 AM Chest X-Ray 07/18/25 19:39 Exam(s): XR CXR 1 VIEW EXAM: XR Chest, 1 View CLINICAL HISTORY: Reason for exam: low o2. TECHNIQUE: Frontal view of the chest. COMPARISON: Chest radiograph on same-day FINDINGS: Hardware: None. Lungs/pleura: Similar to slightly increased consolidations in the right upper lobe and left lower lung. Increased opacity in the right lower lung. Heart/mediastinum: Normal. No cardiomegaly. Soft tissues: Unremarkable. Bones: No acute fracture. Upper abdomen: Normal. IMPRESSION: Similar to slightly increased consolidations in the right upper lobe and left lower lung. Increased opacity in the right lower lung. Electronically signed by: Mari Cortés M.D. 07/18/25 20:48 PM
--- NOTE | 2025-07-19 10:26 | Pharmacy Report ---
Pharmacy PK ABX Note - Date of Service July 19, 2025 - Assessment and Plan Assessment 39 year old F receiving vancomycin, azithromycin for treatment of CAP. Pertinent microbiologic data includes: Positive MRSA Nasal Swab, sputum culture pending, blood cultures x2 pending. * Presented 07/18 with cough, fever * Chest XR shows multifocal pneumonia * Vancomycin started since MRSA swab positive - patient was also tachycardic and febrile last evening * WBC 12.31 today from 14.88 on arrival * SCr 0.71 on arrival, now 0.5 (estimated CrCl 170 mL/min) * Baseline SCr between 0.5-0.7 in 09/2024 Day #1 of antimicrobial therapy. Plan Vancomycin * Loading dose: 2000 mg IV x 1 (given 07/18 @2100) * Initial maintenance dose: 1250 mg IV every 12 hours * Based on renal function today, increased to 1000 mg IV every 8 hours * Regimen is predicted to achieve target AUC/MARITZA of 400-600 mg/L.hr * Trough level ordered for: 07/20/25 @1300 Pharmacy will continue to follow and will adjust dose/frequency as necessary. Thank you. Pharmacy has transitioned to AUC monitoring for vancomycin. AUC/MARITZA is the preferred PK/PD target and is associated with decreased risk of nephrotoxicity compared to traditional trough targets.
[2025-07-19] MEDS: cefTRIAXone SODIUM 2,000 MG/50 ML BAG IV SCH (10:35)
[2025-07-19] MEDS: POTASSIUM PHOSPHATE 30 MMOL in SODIUM CHLORIDE 0.9% 500 ML IV ONE (10:35)
--- NOTE | 2025-07-19 11:39 | Electrocardiogram Report ---
Test Reason : Blood Pressure : */* mmHG Vent. Rate : 114 BPM Atrial Rate : 114 BPM P-R Int : 146 ms QRS Dur : 82 ms QT Int : 308 ms P-R-T Axes : 12 66 36 degrees QTcB Int : 424 ms Sinus tachycardia Otherwise normal ECG When compared with ECG of 09-Sep-2024 08:57, No significant change was found Confirmed by Zac Enamorado ([id number]) on 07/19/2025 11:38:34 AM Referred By: Tasha Smiley Confirmed By: Zac Enamorado
[2025-07-19] MEDS: VANCOMYCIN HCL / NSS 1,000 MG/270 ML BAG IV SCH (13:18)
--- NOTE | 2025-07-19 14:48 | CT Scan Report ---
CT SCAN OF THE CHEST WITHOUT IV CONTRAST CLINICAL HISTORY: Multifocal pneumonia. COMPARISON STUDY: Chest x-ray dated 07/18/2025. TECHNIQUE: CT scan of the thorax was performed from the thoracic inlet to the upper abdomen. Images are reviewed in the axial, sagittal, and coronal planes. IV contrast was not administered for this ex amination as per the referring clinician. A dose lowering technique was utilized adhering to the [facility] of [facility]. CT DOSE: 495.53 mGy.cm FINDINGS: Thyroid: Imaged portions of the thyroid gland are normal in size and attenuation. Thoracic aorta: The thoracic aorta is normal in caliber and demonstrates standard 3-vessel arch anato my. Heart: The heart is normal in size and without pericardial effusion. Lungs and pleural spaces: There is extensive/multifocal airspace consolidation. This is most confluen t in the right upper lobe and the left lower lobe. There are small pleural effusions. The trachea and central airways are clear. There is no clear evidence of cavitation or fluid collection on this unen hanced examination. Mediastinum: There are numerous enlarged mediastinal lymph nodes. An AP window node measures 2 cm in short axis. Precarinal nodes measure 1.3 cm in short axis, and a subcarinal node measures 2 cm in [address]ro rt axis. Mala: Not well assessed without IV contrast. Axillae: There is no axillary lymphadenopathy. Upper abdomen: Partially visualized upper abdominal viscera is within normal limits. Skeletal structures: No lytic or blastic bony lesions are seen. IMPRESSION: 1. Multifocal airspace consolidation is typical for pneumonia. Clinical correlation will be required and radiographic follow-up to resolution is recommended. 2. Small pleural effusions. 3. Enlarged mediastinal lymph nodes are nonspecific and likely reactive. ACT 112: Negative or not required by law. Electronically signed by: Lius Steiner M.D. 07/19/2025 2:45 PM
[2025-07-19] MEDS ORDERED: KETOROLAC TROMETHAMINE 10 MG TABLET PO PRN ×2 (18:00→18:30)
[2025-07-19] MEDS: POLYETHYLENE (MIRALAX) 17 GM PACK PO SCH (18:07)
[2025-07-19] MEDS: diphenhydrAMINE Capsule 25 MG CAP PO ONE (21:05)
[2025-07-19] MEDS: MAGNESIUM SULFATE / D5W 1 GM/100 ML BAG IV ONE (21:05)
[2025-07-19] MEDS: SODIUM CHLORIDE 0.9% 1,000 ML IV SCH (23:45)
[2025-07-20] MEDS ORDERED: VANCOMYCIN LEVEL ONE (05:00)
[2025-07-20 06:45] LABS: Hematocrit (blood only) 32.7 % (37.0-47.0); Hemoglobin 11.1 g/dL (12.0-16.0); Mean Corpuscular Hemoglobin 28.0 pg (25.0-34.0); Mean Corpuscular Volume 82.4 fL (80.0-100.0); Platelet Count 176 K/uL (130-400); RDW Standard Deviation 40.8 fL (36.4-46.3); Red Blood Count 3.97 M/uL (4.20-5.40); White Blood Count 7.42 K/ul (4.8-10.8)
[2025-07-20 07:01] LABS: Anion Gap 7.0 (3-11); Blood Urea Nitrogen 9.0 mg/dl (6-23); Calcium 8.3 mg/dl (8.6-10.3); Carbon Dioxide 25.0 mmol/L (21-32); Chloride 106.0 mmol/L (98-107); Creatinine Clr Calc Pharmacy 184.8 ml/min; Glucose 96.0 mg/dl (70-99(Fasting)); Potassium 3.6 mmol/L (3.5-5.1); Sodium 138.0 mmol/L (136-145)
[2025-07-20] MEDS: KETOROLAC TROMETHAMINE 15 MG/ML VIAL IV PRN (07:26)
[2025-07-20] MEDS: AZITHROMYCIN 250 MG TAB PO SCH (09:55)
[2025-07-20] MEDS: ESCITALOPRAM OXALATE 10 MG TAB PO SCH (09:59)
[2025-07-20] MEDS: IPRATROPIUM BROMIDE NEB SOLN 0.02% 0.5MG/2.5ML VIAL NEB SCH (11:38)
[2025-07-20] MEDS: LEVALBUTEROL HCL 0.63 MG/3 ML NEB NEB SCH (11:38)
[2025-07-20] MEDS: SODIUM CHLOR 7% 4 ML NEB NEB SCH (11:38)
--- NOTE | 2025-07-20 13:49 | Pharmacy Report ---
Pharmacy PK ABX Note - Date of Service July 20, 2025 - Assessment and Plan Assessment 39 year old F receiving vancomycin, azithromycin for treatment of CAP. Pertinent microbiologic data includes: Positive MRSA Nasal Swab, sputum culture growing light normal ravi, blood cultures x2 no growth at 24 hours. * Presented 07/18 with cough, fever * Chest XR shows multifocal pneumonia * Vancomycin started since MRSA swab positive - patient was also tachycardic and febrile on admission * WBC 7.4 now today down from 14.88 on arrival * SCr 0.71 on arrival, now 0.46 * Baseline SCr between 0.5-0.7 in 09/2024 Day #2 of antimicrobial therapy. Plan Vancomycin * Current regimen: 1000 mg IV every 8 hours * Random level obtained 07/20/25 resulted as 7 mcg/mL. This is not predicted to achieve target AUC/MARITZA of 400-600 mg/L.hr * Change to 1500 mg IV every 8 hours * Predicted AUC at steady state: 514 mg/L.hr * Will plan for repeat level on 07/22/25, but will reassess renal function in AM first Pharmacy will continue to follow and will adjust dose/frequency as necessary. Thank you. Pharmacy has transitioned to AUC monitoring for vancomycin. AUC/MARITZA is the preferred PK/PD target and is associated with decreased risk of nephrotoxicity compared to traditional trough targets.
[2025-07-20] MEDS: VANCOMYCIN LEVEL ONE (13:59)
--- NOTE | 2025-07-20 14:30 | Hospitalist Progress Note ---
<Statement entered by Kendrick Campa, DO - 07/20/25 15:18> I have seen and examined the patient and have discussed the case with the advance practice provider. I have reviewed the advanced practitioner's documentation, and I agree with, and take responsibility for that plan of care. Patient improving as expected. Decreased oxygen requirements. Low suspicion for MRSA pneumonia, can narrow antibiotics Discussed plan of care as outlined below I spent a total of 14 minutes coordinating, documenting, and providing care for this patient excluding time spent by another provider/QHP. Date of Service July 20, 2025 Assessment & Plan (1) Sepsis: (2) Multifocal pneumonia: (3) Hypophosphatemia: Plan Patient is a 39-year-old female with past medical history significant for nonrheumatic mitral valve regurgitation, GERD without esophagitis, migraines, small left occipital venous angioma, tobacco use disorder, KOKI, depression and history of opioid abuse on chronic Suboxone therapy who presented to the ED on 07/18/2025 with c/o cough, fever, sore throat, RUSS and SOB. Ultimately found to be septic on presentation 2/2 multifocal PNA. Sepsis POA - WBC and heart rate elevated at presentation meeting SIRS criteria. CXR and chest CT c/w multifocal PNA. Multifocal pneumonia Initially required 6L NC, weaned down to 2L NC this morning. Has been on Rocephin and Zithromax. IV vancomycin added on 07/18 due to (+) nasal MRSA swab, persistent tachycardia and fever. Was again febrile overnight which resolved s/p PRN Tylenol. Respiratory pathogen panel negative, strep throat testing negative. Urine Legionella pending. Preliminary blood cultures negative, final sputum culture with light normal ravi >> feel vancomycin can be discontinued today, not convinced this is MRSA PNA. Leukocytosis resolved today. Continue Rocephin and Zithromax. Scheduled nebs added on in addition to Mucinex. Plan to ambulate hallways today, attempt to wean off O2 entirely as able. Tachycardia persists however it is somewhat improved compared to prior. Prior EKG revealed sinus tachycardia. Feel tachycardia will take time to resolve as her PNA continues to be treated. No known immunologic deficiencies per pt or OP chart review. No h/o IVDA, doubt underlying HIV. Likely would benefit from OP immunologic workup given extent of her infection. If clinical condition does not continue to improve, would then need to consider IP pulmonology eval. Can continue gentle IVF for now, p.o. intake slowly improving. Hypophosphatemia In setting of recent poor p.o. intake. Improved s/p IV repletion. History of opioid abuse on chronic Suboxone therapy Continue home dose of Subutex, pt states she take 2 mg qid as 8 mg dose upsets her stomach. Follows with pain management clinic in [place], [place]. Migraines: Patient on monthly injection, continue as prior on DC. ADHD Patient holding her home meds since 3-4 days [facility] due to her tachycardia. Patient reported HR went up to 160s at home. Can resume once acute illness has resolved. Anemia Likely dilutional however will check routine anemia panel in AM for further eval. DVT Prophylaxis: SQ Heparin Code Status: FULL CODE PCP: Neli Diaz MD Disposition: Possible DC home tomorrow if successfully weaned off O2 and sx continue to improve. Patient seen in collaboration with Dr. Campa. Please see addendum. I spent a total of 56 minutes coordinating, documenting, and providing care for this patient excluding time spent in the performance of separately billed services or time spent by another provider/QHP. This included personally reviewing all current laboratories and imaging studies, medical reconciliation, outpatient chart review and discussion with specialists. This chart was completed in part utilizing Speech Voice Recognition Software. Grammatical errors, random word insertions, pronoun errors, and incomplete sentences are an occasional consequence of this system due to software limitations, ambient noise, and hardware issues. Any formal questions or co ncerns about the content, text, or information contained within the body of this dictation should be directly addressed to the provider for clarification. Admission and Anticipated Discharge Date Admission Date: July 18, 2025 Subjective Patient seen and examined in room E324-1. SOB slowly improving, still requiring 2L NC. Feeling quite weak. Sore throat improving. Cough remains, grossly nonproductive. Mild RUSS this morning which is slowly improving with IV Toradol. Denies any chest pain, abdominal pain or diarrhea. Urinating okay. Goal of ambulating the hallways today. Review of Systems Review of Systems: At least ten systems reviewed and negative, except as noted in the subjective section. Physical Exam Physical Exam: General: F. Sitting up in bed, A&Ox3. Pleasant, conversing appropriately. Ill-appearing however NAD. HEENT: Normocephalic, atraumatic. Moist mucous membranes. Respiratory: Diminished breath sounds bilaterally, no wheeze. On 2L NC and saturating around 93%. Cardiovascular: Tachycardic rate (HR 104bpm), regular rhythm. No BLE edema. Abdomen/GI: Active bowel sounds, soft, nontender to palpation in all quadrants. Extremities/Musculoskeletal: No cyanosis or clubbing, extremities motor strength intact, moves all extremities. Neurologic: No overt focal deficits, CN's II-XI not formally tested but appear grossly intact bilaterally. Results & Data Results & Data Vital Signs (Past 12 Hours) Vital Signs Temp Pulse Resp BP Pulse Ox O2 Del Method O2 Flow Rate 07/20/25 08:13 37.3 C 106 H 14 133/77 93 Room Air 07/20/25 07:00 Nasal Cannula 2 Laboratory Results Short CBC 07/20/25 Range/Units 06:09 WBC 7.42 (4.8-10.8) K/ul Hgb 11.1 L (12.0-16.0) g/dL Hct 32.7 L (37.0-47.0) % Plt Count 176 (130-400) K/uL BMP 07/20/25 06:09 Sodium 138 Potassium 3.6 Chloride 106 Carbon Dioxide 25 BUN 9 Creatinine 0.46 L Glucose 96 Calcium 8.3 L
[2025-07-20] MEDS: VANCOMYCIN HCL 1,500 MG in SODIUM CHLORIDE 0.9% 500 ML IV SCH (15:21)
[2025-07-21] MEDS: LIDOCAINE 5% 1 PATCH TD SCH (00:54)
[2025-07-21] MEDS: ALUMINUM/MAGNESIUM SUSP 30 ML UDC PO PRN (02:24)
[2025-07-21 06:35] LABS: Hematocrit (blood only) 28.8 % (37.0-47.0); Hemoglobin 10.1 g/dL (12.0-16.0); Mean Corpuscular Hemoglobin 28.5 pg (25.0-34.0); Mean Corpuscular Volume 81.1 fL (80.0-100.0); Platelet Count 198 K/uL (130-400); RDW Standard Deviation 39.2 fL (36.4-46.3); Red Blood Count 3.55 M/uL (4.20-5.40); White Blood Count 5.30 K/ul (4.8-10.8)
[2025-07-21 06:59] LABS: Anion Gap 8.0 (3-11); Blood Urea Nitrogen 8.0 mg/dl (6-23); Calcium 8.4 mg/dl (8.6-10.3); Carbon Dioxide 26.0 mmol/L (21-32); Chloride 105.0 mmol/L (98-107); Creatinine Clr Calc Pharmacy 212.5 ml/min; Glucose 101.0 mg/dl (70-99(Fasting)); Iron 13.0 mcg/dl (35-150); Potassium 3.6 mmol/L (3.5-5.1); Sodium 139.0 mmol/L (136-145); Total Iron Binding Cap Calc 220.0 mcg/dl (250-450); Transferrin 157.0 mg/dl (200-360); Transferrin (FE) Percent Satur 6.0 % (15-50)
[2025-07-21 07:20] LABS: Ferritin 262.5 ng/ml (8-388)
[2025-07-21 07:21] LABS: Folate (Folic Acid),Ser orPlas 17.13 ng/ml (>5.38)
[2025-07-21 07:22] LABS: Vitamin B12 1474.0 pg/ml (180-914)
[2025-07-21] MEDS: CHOLECALCIFEROL 125 MCG (5,000 UNITS) TAB PO SCH (10:10)
[2025-07-21] MEDS: REMOVE LIDODERM PATCH SCH (10:11)
--- NOTE | 2025-07-21 14:02 | Hospitalist Progress Note ---
<Statement entered by Kendrick Campa, DO - 07/21/25 16:03> I have seen and examined the patient and have discussed the case with the advance practice provider. I have reviewed the advanced practitioner's documentation, and I agree with, and take responsibility for that plan of care. Patient slowly but steadily improving, oxygen requirements decreasing. WBCs normalized 5.3 Iron studies noted Can transition to oral antibiotics, received Rocephin and Zithromax today. Start levofloxacin tomorrow. No need for Omnicef in addition. Start oral iron replacement Continue to titrate oxygen as able I spent a total of 17 minutes coordinating, documenting, and providing care for this patient excluding time spent by another provider/QHP. Date of Service July 21, 2025 Assessment & Plan (1) Sepsis: (2) Multifocal pneumonia: (3) Hypophosphatemia: Plan Patient is a 39-year-old female with past medical history significant for nonrheumatic mitral valve regurgitation, GERD without esophagitis, migraines, small left occipital venous angioma, tobacco use disorder, KOKI, depression and history of opioid abuse on chronic Suboxone therapy who presented to the ED on 07/18/2025 with c/o cough, fever, sore throat, RUSS and SOB. Ultimately found to b e septic on presentation 2/2 multifocal PNA. Sepsis POA - WBC and heart rate elevated at presentation meeting SIRS criteria. CXR and chest CT c/w multifocal PNA. Multifocal pneumonia Initially required 6L NC, has been slowly weaning down O2 requirement. Was on RA while eating breakfast this morning. Does admit to using 2L NC overnight. Goal of ambulating the hallways today off O2, monitor response. SOB gradually improving. Cough now productive with initiation of scheduled nebs. Mucinex onboard as well. Discussed chest percussion therapy today which she would likely benefit from to promote further airway clearance, order placed. Has been on Rocephin and Zithromax. Respiratory pathogen panel negative, strep throat testing negative. IV vancomycin added on 07/18 due to (+) nasal MRSA swab, persistent tachycardia and fever. Preliminary blood cultures negative, final sputum culture with light normal ravi >> vancomycin discontinued on 07/20. No known immunologic deficiencies per pt or OP chart review. No h/o IVDA, doubt underlying HIV. Likely would benefit from OP immunologic workup given extent of her infection. Tachycardia persists however it is somewhat improved compared to prior. Prior EKG revealed sinus tachycardia. Feel tachycardia will take time to resolve as her PNA continues to be treated. Did discuss case on curbside basis with Dr. Gimenez today >> c/f possible necrotizing PNA. -Recommends extending course of ABX to 14 days rather than usual 7-day course for CAP given this concern. -Discussed ABX options >> recommends transition of Zithromax to Levaquin to cover to Legionella >> urine Legionella still pending. -Will transition to po cefdinir 300mg BID and po Levaquin 500mg daily tomorrow AM with EOT on 07/31. -Also recommends repeat CXR in 1 week to monitor for improvement >> would benefit from OP pulm f/u. P.o. intake greatly improved, IVF discontinued. Hypophosphatemia In setting of recent poor p.o. intake. Resolved s/p IV repletion. P.o. intake greatly improved as per above. History of opioid abuse on chronic Suboxone therapy Continue home dose of Subutex, pt states she take 2 mg qid as 8 mg dose upsets her stomach. Follows with pain management clinic in [place], [place]. Migraines: Patient on monthly injection, continue as prior on DC. ADHD Patient holding her home meds since 3-4 days [employer] due to her tachycardia. Patient reported HR went up to 160s at home. Can resume once acute illness has resolved. Anemia Likely more so dilutional however did check routine anemia panel which did reveal mild iron deficiency. In light of her active infection, will hold off on po Fe supplementation for now >> but will need to consider this down the line once her infection resolves. DVT Prophylaxis: SQ Heparin Code Status: FULL CODE PCP: Neli Diaz MD Disposition: Possible DC home tomorrow if successfully weaned off O2 and sx continue to improve. Patient seen in collaboration with Dr. Campa. Please see addendum. I spent a total of 62 minutes coordinating, documenting, and providing care for this patient excluding time spent in the performance of separately billed services or time spent by another provider/QHP. This included personally reviewing all current laboratories and imaging studies, medical reconciliation, outpatient chart review and discussion with specialists. This chart was completed in part utilizing Speech Voice Recognition Software. Grammatical errors, random word insertions, pronoun errors, and incomplete s entences are an occasional consequence of this system due to software limitations, ambient noise, and hardware issues. Any formal questions or concerns about the content, text, or information contained within the body of this dictation should be directly addressed to the provider for clarification. Admission and Anticipated Discharge Date Admission Date: July 18, 2025 Subjective Patient seen and examined in room E324-1. SOB continues to improve. Cough more productive today. Still feeling weak but has been ambulating in the hallways. Still with some intermittent headaches as well. Eating her breakfast this morning with her oxygen off but notes she did use 2L NC overnight. Review of Systems Review of Systems: At least ten systems reviewed and negative, except as noted in the subjective section. Physical Exam Physical Exam: General: F. Sitting up in bed, A&Ox3. Pleasant, conversing appropriately. NAD. HEENT: Normocephalic, atraumatic. Moist mucous membranes. Respiratory: Coarse breath sounds bilaterally, no wheezing. On RA while eating breakfast and saturating around 92%. Cardiovascular: Tachycardic rate (HR 102bpm), regular rhythm. No BLE edema. Abdomen/GI: Active bowel sounds, soft, nontender to palpation in all quadrants. Extremities/Musculoskeletal: No cyanosis or clubbing, extremities motor strength intact, moves all extremities. Neurologic: No overt focal deficits, CN's II-XI not formally tested but appear grossly intact bilaterally. Results & Data Results & Data Vital Signs (Past 12 Hours) Vital Signs Temp Pulse Pulse Resp BP Pulse Ox O2 Del Method 07/21/25 11:40 99 H 18 90 Room Air 07/21/25 10:18 Room Air 07/21/25 08:29 36.9 C 104 H 16 150/85 H 91 Room Air 07/21/25 07:31 100 H 18 93 Nasal Cannula O2 Flow Rate 07/21/25 11:40 07/21/25 10:18 07/21/25 08:29 07/21/25 07:31 2 Laboratory Results Short CBC 07/21/25 Range/Units 06:17 WBC 5.30 (4.8-10.8) K/ul Hgb 10.1 L (12.0-16.0) g/dL Hct 28.8 L (37.0-47.0) % Plt Count 198 (130-400) K/uL BMP 11/18/25 06:17 Sodium 139 Potassium 3.6 Chloride 105 Carbon Dioxide 26 BUN 8 Creatinine 0.40 L Glucose 101 H Calcium 8.4 L
[2025-07-21] MEDS: FERROUS SULFATE 325 MG TAB PO SCH (17:55)
[2025-07-22 07:07] LABS: Hematocrit (blood only) 31.7 % (37.0-47.0); Hemoglobin 10.7 g/dL (12.0-16.0); Mean Corpuscular Hemoglobin 27.4 pg (25.0-34.0); Mean Corpuscular Volume 81.3 fL (80.0-100.0); Platelet Count 267 K/uL (130-400); RDW Standard Deviation 38.8 fL (36.4-46.3); Red Blood Count 3.90 M/uL (4.20-5.40); White Blood Count 6.23 K/ul (4.8-10.8)
[2025-07-22 07:42] LABS: Anion Gap 9.0 (3-11); Blood Urea Nitrogen 8.0 mg/dl (6-23); Calcium 9.2 mg/dl (8.6-10.3); Carbon Dioxide 28.0 mmol/L (21-32); Chloride 102.0 mmol/L (98-107); Creatinine Clr Calc Pharmacy 193.2 ml/min; Glucose 102.0 mg/dl (70-99(Fasting)); Potassium 4.0 mmol/L (3.5-5.1); Sodium 139.0 mmol/L (136-145)
[2025-07-22] MEDS ORDERED: CEFDINIR 300 MG CAP PO SCH (09:00)
[2025-07-22] MEDS: LEVALBUTEROL HCL 0.63 MG/3 ML NEB NEB SCH (10:48)
[2025-07-22] MEDS: IPRATROPIUM BROMIDE NEB SOLN 0.02% 0.5MG/2.5ML VIAL NEB SCH (10:48)
--- NOTE | 2025-07-22 12:39 | Hospitalist Progress Note ---
Date of Service July 22, 2025 Assessment & Plan (1) Sepsis: (2) Multifocal pneumonia: (3) Hypophosphatemia: Plan Patient is a 39 yo F with past medical history significant for nonrheumatic mitral valve regurgitation, GERD without esophagitis, migraines, small left occipital venous angioma, tobacco use disorder, KOKI, depression and history of opioid abuse on chronic Suboxone therapy who presented to the ED on 07/18/2025 with c/o cough, fever, sore throat, RUSS and SOB. Ultimately found to be septic on presentation 2/2 multifocal PNA. Sepsis POA - WBC and heart rate elevated at presentation meeting SIRS criteria. CXR and chest CT c/w multifocal PNA. Multifocal pneumonia Initially required 6L NC, has been slowly weaning down O2 requirement. Intermittently off oxygen, mostly at rest Cough/SOB improving Transitioned to oral levaquin Respiratory pathogen panel negative, strep throat testing negative. Likely would benefit from OP immunologic workup given extent of her infection. Previous provider did discuss case on curbside basis with Dr. Gimenez>> c/f possible necrotizing PNA. -Recommends extending course of ABX to 14 days rather than usual 7-day course for CAP given this concern. -Discussed ABX options >> recommends transition of Zithromax to Levaquin to cover to Legionella >> urine Legionella still pending. -Levaquin 750mg started 07/22 -Repeat CXR today shows stable PNA, not worsening -Also recommends repeat CXR in 1 week to monitor for improvement >> would benefit from OP pulm f/u. -repeat cbc, bmp, mag ordered for a.m. Hypophosphatemia repleted History of opioid abuse on chronic Suboxone therapy Continue home dose of Subutex, pt states she take 2 mg qid as 8 mg dose upsets her stomach. Follows with pain management clinic in [place], [place]. Migraines: Patient on monthly injection, continue as prior on DC. Feels she is getting a migraine that improved with toradol, knows she needs her monthly inj, will oral prn ibuprofen and d/c IV toradol ADHD Patient holding her home meds since 3-4 days [employer] due to her tachycardia. Patient reported HR went up to 160s at home. Can resume once acute illness has resolved. Anemia Likely more so dilutional however did check routine anemia panel which did reveal mild iron deficiency. iron supplement started DVT Prophylaxis: SQ Heparin Code Status: FULL CODE PCP: Neli Diaz MD Disposition: Possible DC home tomorrow if successfully weaned off O2 and sx continue to improve. Consider 2 step prior to DC Patient seen in collaboration with Dr. Bass. Please see addendum. I spent a total of 52 minutes coordinating, documenting, and providing care for this patient excluding time spent in the performance of separately billed services or time spent by another provider/QHP. This included personally review ing all current laboratories and imaging studies, medical reconciliation, outpatient chart review and discussion with specialists. Admission and Anticipated Discharge Date Admission Date: July 18, 2025 Supervising Physician Co-Signing Physician Notes Pt seen and examined by me, care coordinated w/ B. GREGORIO Escalona, pls refer to her note above for further detail. Pt is sitting up in bed in NAD, working on computer. cont. to use 2L of suppl. O2. Reports she was having a bad headache this morning, feeling better now. Also reports some lower chest discomfort. CXR and ECG were obtained earlier and reviewed. Denies having productive cough. Pt has IS and flutter valve but she has not been using it very much, encouraged her to use. Lungs CTAB but pt not taking deep breaths. Mildly tachycardic. Abdomen soft, nontender, pt is moving extremities. Also, pt says she was taking lexapro here, which she has not started yet at home and does not like the way she feels on it - will Dc for now. Cont. to monitor. MD Shelia Subjective Pt was seen in room 324. F/U multifocal PNA. She reports having a significant RUSS this a.m. that was relieved by toradol. She was hopeful she would feel good enough to go home today, but still requiring intermittent oxygen. Denies significant cough. She feels her SOB is improving. She feels sweaty/chilled but no documented fever today. Appetite is good. Review of Systems Review of Systems: All systems reviewed & are unremarkable except as noted in HPI & below Physical Exam Physical Exam: Gen: WD/WN, NAD, A&O x3, sitting at bedside working on computer HEENT: Normocephalic, atraumatic, conjunctivae moist, sclerae anicteric, mucous membranes moist. Lung: Clear to Auscultation bilaterally, no wheezes/rales/rhonchi Heart: Regular rate, regular rhythm, no murmurs, rubs, or gallops Abdomen: Soft, NT, ND +BS x 4 Extremities: No edema Skin: Warm, no rash, negative turgor. Results & Data Results & Data Vital Signs (Past 12 Hours) Vital Signs Pulse Resp BP Pulse Ox O2 Del Method O2 Flow Rate 07/22/25 10:31 85 18 94 Room Air 07/22/25 07:59 Nasal Cannula 2 07/22/25 07:03 86 20 134/86 98 Room Air 07/22/25 07:00 85 16 91 Nasal Cannula 2 Laboratory Results 07/22/25 07/19/25 Range/Units 06:44 17:35 WBC 6.23 (4.8-10.8) K/ul RBC 3.90 L (4.20-5.40) M/uL Hgb 10.7 L (12.0-16.0) g/dL Hct 31.7 L (37.0-47.0) % MCV 81.3 (80.0-100.0) fL MCH 27.4 (25.0-34.0) pg MCHC 33.8 (32.0-36.0) g/dL RDW Std Deviation 38.8 (36.4-46.3) fL RDW Coeff of Yennifer 13.2 (11.5-14.5) % Plt Count 267 (130-400) K/uL MPV 9.9 (9.4-12.4) fL Sodium 139 (136-145) mmol/L Potassium 4.0 (3.5-5.1) mmol/L Chloride 102 (98-107) mmol/L Carbon Dioxide 28 (21-32) mmol/L Anion Gap 9 (3-11) BUN 8 (6-23) mg/dl Creatinine 0.44 L (0.6-1.2) mg/dl Est Cr Clr Drug Dosing 193.2 ml/min eGFR 126.89 BUN/Creatinine Ratio 18.2 (10-20) Glucose 102 H (70-99(Fasting)) mg/dl Calcium 9.2 (8.6-10.3) mg/dl Urine Legionella Ag SEE NOTE Diagnostic Findings CXR: Stable bilateral pneumonia. Follow-up to resolution recommended. Medications Administered Current Inpatient Medications Acetaminophen (Acetaminophen 325 Mg Tab) 650 mg PO Q4H PRN PRN Reason: Pain or Fever Stop: 08/17/25 12:32 Last Admin: 07/19/25 23:18 Dose: 650 mg Al Hydrox/Mg Hydrox/Simethicone (Aluminum/Magnesium Susp 30 Ml Udc) 15 ml PO Q4H PRN PRN Reason: Dyspepsia Stop: 08/17/25 12:32 Last Admin: 07/21/25 23:38 Dose: 15 ml Benzonatate (Benzonatate 100 Mg Capsule) 100 mg PO TID [facility] Stop: 08/17/25 13:59 Last Admin: 07/22/25 08:27 Dose: 100 mg Buprenorphine HCl (Buprenorphine Hcl 2 Mg Subl) 2 mg SL QID [facility] Stop: 08/17/25 16:59 Last Admin: 07/22/25 08:28 Dose: 2 mg Docusate Sodium (Docusate Sodium 100 Mg Cap) 100 mg PO DAILY [facility] Stop: 08/18/25 08:59 Last Admin: 07/22/25 08:15 Dose: 100 mg Escitalopram Oxalate (Escitalopram Oxalate 10 Mg Tab) 5 mg PO DAILY [facility] Stop: 08/19/25 08:59 Last Admin: 07/22/25 08:17 Dose: 5 mg Ferrous Sulfate (Ferrous Sulfate 325 Mg Tab) 325 mg PO BIDM [facility] Stop: 08/20/25 16:59 Last Admin: 07/22/25 08:16 Dose: 325 mg Guaifenesin (Guaifenesin 600 Mg Tabcr) 600 mg PO Q12 [facility] Stop: 08/17/25 12:34 Last Admin: 07/22/25 08:18 Dose: 600 mg Heparin Sodium (Porcine) (Heparin Sod 5,000 Unit/0.5 Ml Vial) 5,000 units SQ Q12 [facility] Stop: 08/17/25 20:59 Last Admin: 07/22/25 08:18 Dose: Not Given Ibuprofen (Ibuprofen 800 Mg Tab) 800 mg PO Q8H PRN PRN Reason: headache Stop: 08/21/25 12:44 Ipratropium [place] (Ipratropium [place] Neb Soln 0.02% 0.5mg/2.5ml Vial) 0.5 mg NEB Q6R [facility] Stop: 08/21/25 10:44 Last Admin: 07/22/25 10:48 Dose: Not Given Lactobacillus Acidophilus (Advanced Probiotic 625 Mg Capsule) 1,250 mg PO HS [facility] Stop: 08/17/25 20:59 Last Admin: 07/21/25 20:41 Dose: 1,250 mg Levalbuterol HCl (Levalbuterol Hcl 0.63 Mg/3 Ml Neb) 0.63 mg NEB Q6R [facility]; Protocol Stop: 08/21/25 10:44 Last Admin: 07/22/25 10:48 Dose: Not Given Levofloxacin (Levofloxacin 750 Mg Tab) 750 mg PO DAILY@1100 [facility]; Protocol Stop: 07/27/25 10:59 Last Admin: 07/22/25 11:06 Dose: 750 mg Lidocaine (Lidocaine 5% 1 Patch) 1 patch TD [facility] Stop: 08/20/25 00:19 Last Admin: 07/21/25 20:33 Dose: Not Given Magnesium Hydroxide (Magnesium Hydroxide Susp 30 Ml Udc) 30 ml PO Q12H PRN PRN Reason: Constipation Stop: 08/17/25 12:32 Magnesium Oxide (Magnesium Oxide 400 Mg Tab) 400 mg PO QAM [facility] Stop: 08/18/25 08:59 Last Admin: 07/22/25 08:16 Dose: 400 mg Miscellaneous (Remove Lidoderm Patch) 1 each N/A DAILY [facility] Stop: 08/20/25 08:59 Last Admin: 07/22/25 08:20 Dose: Not Given Multivitamins (Multivitamin Tab) 1 tab PO DAILY [facility] Stop: 08/18/25 08:59 Last Admin: 07/22/25 08:19 Dose: 1 tab Ondansetron HCl (Ondansetron Inj 2 Mg/Ml 2 Ml Vial) 4 mg IV Q6H PRN PRN Reason: Nausea Stop: 08/17/25 12:32 Pantoprazole Sodium (Pantoprazole 40 Mg Tab) 40 mg PO QAM PRN PRN Reason: gerd Stop: 08/17/25 13:46 Last Admin: 07/19/25 08:14 Dose: 40 mg Phenol (Chloraseptic (Phenol) 1.4% Soln 180 Ml Btl) 1 sprays MT Q2H PRN PRN Reason: Sore Throat Stop: 08/17/25 12:29 Polyethylene Glycol (Polyethylene (Miralax) 17 Gm Pack) 17 gm PO DAILY [facility] Stop: 08/18/25 16:56 Last Admin: 07/22/25 08:15 Dose: Not Given Vitamin D (Cholecalciferol 125 Mcg (5,000 Units) Tab) 125 mcg PO QAM [facility] Stop: 08/20/25 08:59 Last Admin: 07/22/25 08:17 Dose: 125 mcg
--- NOTE | 2025-07-22 12:59 | XRay Report ---
XR chest 2V PA/lateral CLINICAL HISTORY: follow up multifocal pna COMPARISON STUDY: 07/18/2025 FINDINGS: Dense consolidation at the lower aspect of the right upper lobe and diffuse patchy consolid ation at the left mid and lower lung is grossly stable. No pleural effusion or pneumothorax seen. IMPRESSION: Stable bilateral pneumonia. Follow-up to resolution recommended. ACT 112: Negative or not required by law. Electronically signed by: Tr Howell M.D. 07/22/2025 12:58 PM
[2025-07-22] MEDS: IBUPROFEN 800 MG TAB PO PRN (18:42)
--- NOTE | 2025-07-22 18:43 | Electrocardiogram Report ---
Test Reason : Blood Pressure : */* mmHG Vent. Rate : 80 BPM Atrial Rate : 80 BPM P-R Int : 162 ms QRS Dur : 84 ms QT Int : 370 ms P-R-T Axes : 22 67 42 degrees QTcB Int : 426 ms Normal sinus rhythm Normal ECG When compared with ECG of 18-Jul-2025 08:55, T wave amplitude has increased in Lateral leads Confirmed by Evgeny Isabel ([id number] on 07/22/2025 6:43:13 PM Referred By: Tasha Smiley Confirmed By: Evgeny Isabel
[2025-07-22] MEDS: KETOROLAC TROMETHAMINE 10 MG TABLET PO STA (23:27)
[2025-07-23 07:08] LABS: Hematocrit (blood only) 33.4 % (37.0-47.0); Hemoglobin 11.3 g/dL (12.0-16.0); Mean Corpuscular Hemoglobin 27.6 pg (25.0-34.0); Mean Corpuscular Volume 81.7 fL (80.0-100.0); Platelet Count 317 K/uL (130-400); RDW Standard Deviation 38.1 fL (36.4-46.3); Red Blood Count 4.09 M/uL (4.20-5.40); White Blood Count 7.56 K/ul (4.8-10.8)
[2025-07-23 07:32] LABS: Anion Gap 7.0 (3-11); Blood Urea Nitrogen 12.0 mg/dl (6-23); Calcium 9.5 mg/dl (8.6-10.3); Carbon Dioxide 29.0 mmol/L (21-32); Chloride 102.0 mmol/L (98-107); Creatinine Clr Calc Pharmacy 184.8 ml/min; Glucose 103.0 mg/dl (70-99(Fasting)); Magnesium 2.0 mg/dl (1.7-2.4); Potassium 4.4 mmol/L (3.5-5.1); Sodium 138.0 mmol/L (136-145)
[2025-07-23 08:06] VITALS: RESP 16
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
[2025-07-23 13:18] VITALS: PULSE 87
[2025-07-23 14:20] VITALS: BP 114/76; TEMP 97.9; O2SAT 92
== END 2025-07-23 15:59 | disposition home or self-care (01) | DRG 871 ==
LOC: ED 08:44 → 2S 12:33 → SUATTDRO 12:33 → 2S 14:02 → 3E 07-19 15:55